=== PATIENT | male | born 1955 | race Caucasian/White ===

== ENCOUNTER → 2017-08-03 09:41 | Outpatient (CLI) | payer MEDICARE, SELFPAY ==
--- NOTE | 2017-08-03 09:48 | XR_ITS ---
XR thoracic spine 3V COMPARISON: PA and lateral chest 01/11/2017 HISTORY: Back pain TECHNIQUE: AP and lateral views and swimmer's view cervicothoracic junction FINDINGS: There is normal curvature and alignment. Moderate degenerative changes are again seen in the lower thoracic spine with anterior ossific spurring. The swimmer's view is somewhat less than satisfactory due to underpenetration but no obvious abnormality is identified at the cervicothoracic junction. There is no acute compression fracture seen. There is no paraspinal mass. IMPRESSION: Stable degenerative changes lower thoracic spine as noted
--- NOTE | 2017-08-03 09:48 | XR_ITS ---
XR ribs RT min 3V w CXR1V COMPARISON: Right ribs 02/28/2017 HISTORY: Right rib pain TECHNIQUE: PA chest and oblique views right ribs FINDINGS: Again noted is a sternal wire sutures and surgical clips from previous bypass procedure. All the right ribs appear intact. The previously noted fracture of the right 10th rib has healed with little or no deformity. Both lung linn are clear of infiltrate. IMPRESSION: Negative for acute right rib fracture
== END ==
PROVIDERS: PCP Family Medicine; Visit Provider Family Medicine
DX: R07.81 Pleurodynia (principal); M54.6 Pain in thoracic spine
CPT/HCPCS: 71101; 72072

== ENCOUNTER → 2017-08-22 14:11 | Outpatient (CLI) | payer MEDICARE, SELFPAY ==
[2017-08-22 14:45] LABS: Blood Urea Nitrogen 16 mg/dL (7-18); Creatinine,Serum 1.17 mg/dL (0.70-1.30); Estimated Glomerular Filt Rate 63 ml/min (>60); GFR (African American) 76 ML/MIN (>60)
== END ==
PROVIDERS: Visit Provider Family Medicine
DX: R10.9 Unspecified abdominal pain (principal)
CPT/HCPCS: 36415; 82565; 84520

== ENCOUNTER → 2017-08-24 09:25 | Outpatient (CLI) | payer MEDICARE, SELFPAY ==
--- NOTE | 2017-08-24 09:32 | CT_ITS ---
CT abdomen pelvis w con CLINICAL INDICATION: Right-sided abdominal pain radiating to the back ITS.REASON: ABDOMINAL PAIN ORDERING PHYSICIAN: Estuardo Pacheco MD PATIENT AGE: 61 years COMPARISON: None TECHNIQUE: Axial images obtained with sagittal and coronal reformats. All CT scans at the facility use one or more dose reduction, viz: automated exposure control; ma/kV adjustment per patient size (including targeted exams where dose is matched to indication; i.e. head); or iterative reconstruction technique. PROCEDURE: Oral Contrast: Redicat IV Contrast: 75 mL's of Isovue-370 . FINDINGS: The lung bases are clear. No focal liver lesion. There is a 17 mm rounded fat density within the cardia of the stomach consistent with a lipoma. No radio opaque gallstone. The spleen, adrenal glands, and pancreas and kidneys have an unremarkable appearance. No obstructing renal or ureteral calculus. No evidence of abdominal aortic aneurysm or retroperitoneal hemorrhage or mass No abdominal mass or abnormal fluid collection. No adenopathy. No intestinal obstruction or free air. No evidence of appendicitis or diverticulitis. No pelvic mass, focal inflammatory change, or abnormal fluid collection. No acute bony anomalies. IMPRESSION: 1. No acute abdominal or pelvic findings. 2. 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
--- NOTE | 2017-08-24 10:27 | HMH.ITSHM ---
POTASSIUM FUROSEMIDE ASPIRIN ALLOPURINOL BASIC FISH OIL LEVOTHYROXIN LISINOPRIL NAPROXEN PANTOPRAZOLE TRAMADOL
== END ==
PROVIDERS: Family Provider Family Medicine; PCP Family Medicine; Visit Provider Family Medicine
DX: R10.84 Generalized abdominal pain (principal)
CPT/HCPCS: 74177; Q9967

== ENCOUNTER → 2018-02-08 14:08 | Outpatient (CLI) | payer MEDICARE, SELFPAY ==
--- NOTE | 2018-02-08 14:14 | CT_ITS ---
CT lung screening EXAM: CT LUNG LOW DOSE WO CONTRAST HISTORY: Asymptomatic with 38 pack-year smoking history ITS.REASON: FORMER SMOKER ORDERING PHYSICIAN: Estuardo Pacheco MD PATIENT AGE: 62 years COMPARISON: None TECHNIQUE: The exam was performed on a GE Light Speed [address] scanner using 2.90 mGy CTDI. A low dose helical CT CHEST was performed on a multi-detector scanner. All CT scans at the facility use one or more dose reduction, viz: automated exposure control, ma/kV adjustment per patient size (including targeted exams where dose is matched to indication, i.e. head), or iterative reconstruction technique. The LDCT was performed in a facility that meets the criteria for the screening program. Data regarding this exam was submitted to ACR which is an approved registry. The order for this exam indicates that it came as a result of a lung cancer screening counseling shard decision-making visit that included all the elements required of such a visit including smoking cessation. The radiologist interpreting this exam meets the CMS criteria for the LDCT lung cancer screening program. The exam is reported using the Lung-RADS classification scale and reported to the ACR registry. NOTE: This study was performed for the specific purposes of lung cancer screening and is not an alternative to diagnostic chest CT. RADIATION DOSE: CTDI vol(CT dose Index-volume) = 2.90mG DLP (Dose Length Product) = 107.07 mGcm FINDINGS: There has been a prior CABG. There are coronary artery calcifications with small mediastinal lymph nodes. Hyperinflation with attenuation of the peripheral pulmonary vessels and bronchial thickening with mild prominence of interstitial markings which may be related to smoking-related lung disease. 3 mm noncalcified nodule within the lingula. 3 mm noncalcified nodule right upper lobe anteriorly. 4 mm noncalcified nodule right upper lobe laterally coronal image #50. No central obstructing lesions. No suspicious pulmonary nodules. IMPRESSION: 1. Lung RADS Category: 2, benign 2. Other findings: COPD, coronary artery disease RECOMMENDATIONS: 12 month LDCT follow-up
== END ==
PROVIDERS: Family Provider Family Medicine; PCP Family Medicine; Visit Provider Family Medicine
DX: Z12.2 Encounter for screening for malignant neoplasm of respiratory organs (principal); Z87.891 Personal history of nicotine dependence

== ENCOUNTER → 2018-10-04 15:08 | Outpatient (CLI) | payer MEDICARE, SELFPAY ==
--- NOTE | 2018-10-04 15:30 | XR_ITS ---
XR chest 2V HISTORY: Chest pain, shortness of breath ORDERING PHYSICIAN: Estuardo Pacheco MD PATIENT AGE: 62 years COMPARISON: 01/11/2017 FINDINGS: Prior CABG.. The lungs are clear without infiltrates, suspicious nodules, or pleural effusions. No acute bony abnormalities. IMPRESSION: Prior CABG. No change with no acute finding
[2018-10-04 15:45] LABS: Alanine Aminotransferase 34 U/L (12-78); Albumin Level 4.1 gm/dL (3.4-5.0); Albumin/Globulin Ratio 1.2 (1.1-1.8); Alkaline Phosphatase 53 U/L (46-116); Anion Gap 11.2 mEq/L (5-15); Aspartate Amino Transferase 15 U/L (15-37); Bilirubin,Total 0.5 mg/dL (0.2-1.0); Blood Urea Nitrogen 19 mg/dL (7-18); CKMB Relative Index 2.3 U/L (0-4.0); Calcium 8.8 mg/dL (8.5-10.1); Carbon Dioxide 29 mmol/L (21.0-32.0); Chloride 102 mmol/L (98-107); Creatine Kinase 79 U/L (39-308); Creatine Kinase MB 1.8 ng/ml (0.0-3.6); Creatinine,Serum 1.18 mg/dL (0.70-1.30); Estimated Glomerular Filt Rate 62 ml/min (>60); GFR (African American) 75 ML/MIN (>60); Globulin 3.4 gm/dl (1.3-3.2); Glucose 92 mg/dL (74-106); Potassium 4.2 mmoL/L (3.5-5.1); Sodium 138 mmol/L (136-145); Total Protein,Serum 7.5 gm/dL (6.4-8.2)
== END ==
PROVIDERS: Visit Provider Family Medicine
DX: I25.10 Atherosclerotic heart disease of native coronary artery without angina pectoris (principal); R07.2 Precordial pain
CPT/HCPCS: 36415; 71046; 80053; 82550; 82553; 84484; 93005

== ENCOUNTER → 2019-02-10 13:52 | Outpatient (CLI) | payer MEDICARE, SELFPAY ==
--- NOTE | 2019-02-10 13:57 | CT_ITS ---
PROCEDURE: CT LUNG SCREENING CLINICAL INDICATION: HX TOBACCO USE Thirty-four pack-year smoking history, asymptomatic for lung cancer COMPARISON: [facility] CT CHEST W/O CONTRAST from 02/12/2017 TECHNIQUE: The exam was performed on a GE Light Speed [address] scanner using 2.90 mGy CTDI. A low dose helical CT CHEST was performed on a multi-detector scanner. All CT scans at the facility use one or more dose reduction, viz: automated exposure control, ma/kV adjustment per patient size (including targeted exams where dose is matched to indication, i.e. head), or iterative reconstruction technique. The LDCT was performed in a facility that meets the criteria for the screening program. Data regarding this exam was submitted to ACR which is an approved registry. The order for this exam indicates that it came as a result of a lung cancer screening counseling shard decision-making visit that included all the elements required of such a visit including smoking cessation. The radiologist interpreting this exam meets the CMS criteria for the LDCT lung cancer screening program. The exam is reported using the Lung-RADS classification scale and reported to the ACR registry. NOTE: This study was performed for the specific purposes of lung cancer screening and is not an alternative to diagnostic chest CT. RADIATION DOSE: CTDI vol(CT dose Index-volume) = 2.90mG DLP (Dose Length Product) = 107.07 mGcm FINDINGS: No suspicious pulmonary nodules. COPD. Degenerative change thoracic spine. Coronary artery calcification. Prior CABG OTHER FINDINGS: No other pertinent findings evident. IMPRESSION: Lung rads category 1, negative Coronary artery calcifications. Recommend screening LD CT in 12 months Dictated by: Larry Sam MD 02/12/2019 05:47 Electronically signed by Larry Sam MD in [place] 02/23/2019 11:03
== END ==
PROVIDERS: PCP Family Medicine; Visit Provider Family Medicine
DX: Z87.891 Personal history of nicotine dependence (principal); Z12.2 Encounter for screening for malignant neoplasm of respiratory organs

== ENCOUNTER → 2019-04-02 10:33 | Outpatient (CLI) | payer MEDICARE, SELFPAY ==
--- NOTE | 2019-04-02 10:46 | XR_ITS ---
PROCEDURE: XR FOOT WT BEARING LT 3V CLINICAL INDICATION: cellulitis of toe Pain redness and swelling the COMPARISON: No exams were available for comparison FINDINGS: No fracture or dislocation. No lytic or blastic change. There is normal mineralization. There are mild osteoarthritic changes of the 1st metatarsophalangeal joint. No bony destructive process is evident. Mild osteoarthritis involves the navicular cuneiform and cuneiform metatarsal junction Other findings:None. IMPRESSION: Mild osteoarthritic change otherwise negative Dictated by: Larry Sam MD 04/02/2019 12:28 Electronically signed by Larry Sam MD in [place] 04/02/2019 12:28
[2019-04-02 11:40] LABS: Basophils # 0.1 K/mm3 (0-0.2); Basophils % 0.9 % (0.1-2.0); Eosinophils # 0.4 K/mm3 (0.0-0.4); Hematocrit 44.7 % (42.0-52.0); Hemoglobin 14.4 g/dL (14.1-18.0); Lymphocytes # 1.6 K/mm3 (0.7-4.5); Lymphocytes % 22.3 % (10-50); Mean Corpuscular HGB Conc 32.3 g/dL (31.8-35.4); Mean Corpuscular Hemoglobin 33.1 pg (27.0-31.2); Mean Corpuscular Volume 102.4 fl (80-94); Mean Platelet Volume 8.4 fl (7.4-10.4); Monocytes # 0.5 K/mm3 (0.1-1.0); Monocytes % 7.1 % (1.7-9.3); Neutrophils # 4.7 K/mm3 (1.8-7.8); Neutrophils % 64.8 % (37.0-80.0); Platelet Count 213 K/mm3 (142-424); Red Blood Count 4.36 M/mm3 (4.60-6.20); Red Cell Distribution Width 13.2 % (11.5-17.5); White Blood Count 7.3 K/mm3 (4.8-10.8)
[2019-04-02 12:00] LABS: Alanine Aminotransferase 19 U/L (12-78); Albumin Level 4.1 gm/dL (3.4-5.0); Albumin/Globulin Ratio 1.5 (1.1-1.8); Alkaline Phosphatase 60 U/L (46-116); Anion Gap 10.3 mEq/L (5-15); Aspartate Amino Transferase 9 U/L (15-37); Bilirubin,Total 0.8 mg/dL (0.2-1.0); Blood Urea Nitrogen 14 mg/dL (7-18); C-Reactive Protein 4.3 mg/dL (0.0-0.9); Calcium 9.1 mg/dL (8.5-10.1); Carbon Dioxide 32 mmol/L (21.0-32.0); Chloride 102 mmol/L (98-107); Creatinine,Serum 1.12 mg/dL (0.70-1.30); Estimated Glomerular Filt Rate 66 ml/min (>60); GFR (African American) 80 ML/MIN (>60); Globulin 2.8 gm/dl (1.3-3.2); Glucose 98 mg/dL (74-106); Potassium 5.3 mmoL/L (3.5-5.1); Sodium 139 mmol/L (136-145); Total Protein,Serum 6.9 gm/dL (6.4-8.2)
[2019-04-02 14:06] LABS: Erythrocyte Sedimentation Rate 38 mm/hr (0-20)
== END ==
PROVIDERS: Nurse Practitioner; PCP Family Medicine; Visit Provider Podiatrist
DX: L02.91 Cutaneous abscess, unspecified (principal); L03.90 Cellulitis, unspecified; L02.619 Cutaneous abscess of unspecified foot; L03.119 Cellulitis of unspecified part of limb
CPT/HCPCS: 36415; 73630; 80053; 85025; 85651; 86140; 87070; 87077; 87186; 87205

== ENCOUNTER → 2019-04-02 10:36 | Outpatient (CLI) | payer MEDICARE, SELFPAY | PROVIDERS: Visit Provider Nurse Practitioner | DX: L03.90 Cellulitis, unspecified (principal); L02.91 Cutaneous abscess, unspecified | CPT/HCPCS: 36415; 73630; 80053; 85025; 85651; 86140; 87070; 87077; 87186; 87205 ==

== ENCOUNTER → 2019-04-29 16:09 | Outpatient (CLI) | payer MEDICARE, SELFPAY ==
[2019-04-29 16:26] LABS: Basophils # 0.1 K/mm3 (0-0.2); Basophils % 0.8 % (0.1-2.0); Eosinophils # 0.3 K/mm3 (0.0-0.4); Eosinophils % 5.4 % (0.1-12.0); Hematocrit 43.1 % (42.0-52.0); Hemoglobin 14.1 g/dL (14.1-18.0); Lymphocytes # 2.3 K/mm3 (0.7-4.5); Lymphocytes % 37.4 % (10-50); Mean Corpuscular HGB Conc 32.8 g/dL (31.8-35.4); Mean Corpuscular Hemoglobin 32.5 pg (27.0-31.2); Mean Corpuscular Volume 98.9 fl (80-94); Mean Platelet Volume 8.3 fl (7.4-10.4); Monocytes # 0.5 K/mm3 (0.1-1.0); Monocytes % 7.5 % (1.7-9.3); Platelet Count 205 K/mm3 (142-424); Red Blood Count 4.35 M/mm3 (4.60-6.20); Red Cell Distribution Width 13.4 % (11.5-17.5); White Blood Count 6.1 K/mm3 (4.8-10.8)
[2019-04-29 17:13] LABS: Erythrocyte Sedimentation Rate 20 mm/hr (0-20)
[2019-04-29 17:25] LABS: Alanine Aminotransferase 29 U/L (12-78); Albumin/Globulin Ratio 1.3 (1.1-1.8); Alkaline Phosphatase 53 U/L (46-116); Anion Gap 12.3 mEq/L (5-15); Aspartate Amino Transferase 18 U/L (15-37); Bilirubin,Total 0.5 mg/dL (0.2-1.0); Blood Urea Nitrogen 20 mg/dL (7-18); Calcium 8.8 mg/dL (8.5-10.1); Carbon Dioxide 29 mmol/L (21.0-32.0); Chloride 103 mmol/L (98-107); Creatinine,Serum 1.17 mg/dL (0.70-1.30); Estimated Glomerular Filt Rate 63 ml/min (>60); GFR (African American) 76 ML/MIN (>60); Globulin 3.1 gm/dl (1.3-3.2); Glucose 90 mg/dL (74-106); Potassium 4.3 mmoL/L (3.5-5.1); Sodium 140 mmol/L (136-145); Total Protein,Serum 7.1 gm/dL (6.4-8.2)
[2019-04-29 18:04] LABS: C-Reactive Protein < 0.2 mg/dL (0.0-0.9)
== END ==
PROVIDERS: Visit Provider Nurse Practitioner
DX: E66.9 Obesity, unspecified (principal); Z51.89 Encounter for other specified aftercare; S90.425D Blister (nonthermal), left lesser toe(s), subsequent encounter
CPT/HCPCS: 36415; 80053; 85025; 85651; 86140

== ENCOUNTER → 2019-10-24 11:15 | Outpatient (CLI) | payer MEDICARE, SELFPAY ==
--- NOTE | 2019-10-24 11:43 | ECG_ITS ---
APPROVED REPORT Exam: Resting ECG HR:47 bpm ECG Measurements Heart Rate 47 AXES ID 226 P 38 QRSd 106 QRS 41 QT 424 T 2 QTc 375 <Conclusion> Marked sinus bradycardia with 1st degree AV block Abnormal ECG Electronically signed by : Micheal Ayala, 10/26/2019 07:11:48
[2019-10-24 11:53] LABS: Basophils % 0.3 % (0.1-2.0); Eosinophils # 0.2 K/mm3 (0.0-0.4); Eosinophils % 2.6 % (0.1-12.0); Hematocrit 43.7 % (42.0-52.0); Hemoglobin 14.9 g/dL (14.1-18.0); Lymphocytes # 2.5 K/mm3 (0.7-4.5); Lymphocytes % 31.5 % (10-50); Mean Corpuscular HGB Conc 34.1 g/dL (31.8-35.4); Mean Corpuscular Hemoglobin 33.5 pg (27.0-31.2); Mean Platelet Volume 7.7 fl (7.4-10.4); Monocytes # 0.5 K/mm3 (0.1-1.0); Monocytes % 6.5 % (1.7-9.3); Neutrophils # 4.6 K/mm3 (1.8-7.8); Platelet Count 208 K/mm3 (142-424); Red Blood Count 4.46 M/mm3 (4.60-6.20); Red Cell Distribution Width 14.1 % (11.5-17.5); White Blood Count 7.8 K/mm3 (4.8-10.8)
[2019-10-24 13:37] LABS: Chloride 100 mmol/L (98-107)
[2019-10-24 13:38] LABS: Potassium 4.4 mmoL/L (3.5-5.1); Sodium 137 mmol/L (136-145)
[2019-10-24 13:40] LABS: Alanine Aminotransferase 20 U/L (12-78); Alkaline Phosphatase 61 U/L (38-126); Anion Gap 11.4 mEq/L (5-15); Aspartate Amino Transferase 20 U/L (17-59); Bilirubin,Total 0.8 mg/dl (0.2-1.3); Blood Urea Nitrogen 20 mg/dl (9-20); Carbon Dioxide 30 mmol/L (22.0-30.0); Estimated Glomerular Filt Rate 67 ml/min (>60); GFR (African American) 81 ML/MIN (>60)
[2019-10-24 13:41] LABS: Albumin Level 4.1 g/dl (3.5-5.0); Albumin/Globulin Ratio 1.6 (1.1-1.8); Calcium 9.3 mg/dl (8.4-10.2); Globulin 2.6 g/dL (1.3-3.2); Glucose 91 mg/dl (74-100); Total Protein,Serum 6.7 g/dl (6.3-8.2)
[2019-10-24 13:58] LABS: Free T4 (Free Thyroxine) 1.32 ng/dl (0.78-2.19)
== END ==
PROVIDERS: Visit Provider Family Medicine
DX: I25.10 Atherosclerotic heart disease of native coronary artery without angina pectoris (principal); E03.9 Hypothyroidism, unspecified; R53.83 Other fatigue
CPT/HCPCS: 36415; 80053; 84439; 85025; 93005

== ENCOUNTER → 2019-10-28 10:25 | Outpatient (CLI) | payer MEDICARE, SELFPAY | PROVIDERS: PCP Family Medicine; Visit Provider Family Medicine | DX: R00.1 Bradycardia, unspecified (principal) | CPT/HCPCS: 93225; 93226 ==

== ENCOUNTER → 2019-11-10 13:57 | Outpatient (CLI) | payer MEDICARE, SELFPAY | PROVIDERS: PCP Family Medicine; Visit Provider Nurse Practitioner Family | DX: R00.1 Bradycardia, unspecified (principal); R00.2 Palpitations; R42 Dizziness and giddiness; R94.31 Abnormal electrocardiogram [ECG] [EKG] | CPT/HCPCS: 93270 ==

== ENCOUNTER → 2019-11-21 06:09 | Outpatient (CLI) | payer MEDICARE, SELFPAY ==
--- NOTE | 2019-11-21 06:10 | NM_ITS ---
APPROVED REPORT Exam: Nuclear Stress Test Indication: SOB, Palpitations, High cholesterol, CAD, CABG, Family history Patient Location: Outpatient Stress Tech: Sepideh Alycia MS Tech:Jessica Rene, ARRT, RT (R)(N) Ht: 6 ft 0 in Wt: 250 lbs HR: 48 bpm BP: 185/55 mmHg BSA: 2.34 m2 History: SOB, Palpitations, High cholesterol, CAD, CABG, Family history Procedure: Patient received a 0.4 mg of intravenous Lexiscan, resting heart rate 48 bpm, resting blood pressure 185/55 mmHg, with Lexiscan maximum heart rate achived was 69 bpm which is 85 % of the maximum predicted heart rate and blood pressure was 134/64 mmHg. With Lexiscan, patient denied any complaint of chest pain. Cardiac Stress and Resting SPECT Images: Cardiac Stress and Resting SPECT images were obtained using technetium 99m Myoview 30.8 mCi stress and 10.43 mCi at rest. EF= 47%. There is global hypokinesia. Decrease activity noted on the stress images in the anterior septal region toward the apex fills in on the delayed images. Fixed defect is present within the anterior lateral aspect of the apex. There is decreased activity in the inferior wall which normalizes on the rest images consistent with ischemia. Conclusion: Low ejection fraction of 47% with global hypokinesia. Ischemic changes within the anterior wall and inferior wall with suspected area of infarction involving the apex laterally Electronically signed by : Larry Sam MD 11/24/2019 17:34:06
--- NOTE | 2019-11-21 06:10 | CA_ITS ---
APPROVED REPORT Data Entry Clerk: GRZEGORZ Laterality: Bilateral Study Quality: Good Indications: bilateral carotid bruits Doppler Spectral Velocity Analysis dICA (R) 62.40/21.90 cm/s dICA (L) 59.50/17.70 cm/s Josh (R) 73.40/24.00 cm/s Josh (L) 87.00/26.90 cm/s pICA (R) 58.90/17.10 cm/s pICA (L) 60.00/20.50 cm/s dCCA (R) 62.30/11.70 cm/s dCCA (L) 102.10/27.80 cm/s pCCA (R) 77.90/17.20 cm/s pCCA (L) 90.50/22.40 cm/s Vert (R) 39.70/13.00 cm/s Vert (L) 41.00/11.70 cm/s ICA/CCA 1.20 ICA/CCA 0.90 Findings Duplex evaluation demonstrates stenosis of the right proximal internal carotid artery <20% with PSV <140 cm/sec, EDV <100 cm/sec, and IC/CC Ratio <4.0.Duplex evaluation demonstrates stenosis of the left proximal internal carotid artery <20% with PSV <140 cm/sec, EDV <100 cm/sec, and IC/CC Ratio <4.0.Antegrade flow seen bilateral vertebral arteries. No significant change from study of 02/28/07 Conclusion No increased velocities to suggest hemodynamically significant stenosis in either internal carotid artery. Electronically signed by : Larry Sam MD 11/24/2019 16:54:06
--- NOTE | 2019-11-21 06:10 | CA_ITS ---
APPROVED REPORT Exam: Pharmacologic Technologist: Heather Tong, Ht: 6 ft 0 in Wt: 250 lbs BSA: 2.34 m2 HR: 48 bpm BP: 185/55 mmHg Medical History Medical History: HTN Medications: Lisinopril,,,,, Levothyroxine,,,,, Asa,,,,, Allopurinol,,,,, Pantoprazole,,,,, Lasix,,,,, Naproxen,,,,, Tramadol,,,,, KCL,,,,, Ezetimbe,,,,, Nitro,,,,, Allergies: No known drug allergies Cardiac Risk Factors: HTN, FHX of CAD Stress Test Details Test: LEXISCAN HR Resting HR: 49 bpm Max Heart Rate (APMHR): 154 bpm Max HR Achieved: 87 bpm Target HR (85% APMHR): 130 bpm % of APMHR: 56 Recovery HR: 69 bpm BP Resting BP: 185.0/55.0 mmHg Max BP: 185.0/55.0 mmHg Recovery BP: 134.0/64.0 mmHg ECG Resting ECG: SINUS BRADYCARDIA Clinical Exercise duration: 04:00 min Highest Stage Achieved: Exercise capacity: 1.0 METs Stress ECG Conclusion LEXISCAN PORTION COMPLETED. PT C/O SHORTNESS OF BREATH DURING INFUSION. NO CHEST PAIN BUT HAD SOA DURING INFUSION. RESOLVED IN RECOVERY. OCCASIONAL PVC. LESS ROXY 1.5MM ST DEPRESSION. IMAGES TO FOLLOW Electronically signed by : Faisal Garza, 12/01/2019 19:57:02
--- NOTE | 2019-11-21 08:33 | HMH.ITSHM ---
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 []TRAMADOL POTASSIUM PANTOPRAZOLE OMEGA 3 NITRO NAPROXEN LISINOPRIL LEVOTHYROXINE FUROSEMIDE EZETIMIBE COENZYME ASA ALLOPURINOL
== END ==
PROVIDERS: PCP Family Medicine; Visit Provider Nurse Practitioner Family
DX: E66.9 Obesity, unspecified (principal); I25.708 Atherosclerosis of coronary artery bypass graft(s), unspecified, with other forms of angina pectoris; K21.9 Gastro-esophageal reflux disease without esophagitis; R00.1 Bradycardia, unspecified; R00.2 Palpitations; R06.09 Other forms of dyspnea; R09.89 Other specified symptoms and signs involving the circulatory and respiratory systems; R42 Dizziness and giddiness; R94.31 Abnormal electrocardiogram [ECG] [EKG]; Z87.891 Personal history of nicotine dependence; Z95.1 Presence of aortocoronary bypass graft
CPT/HCPCS: 78452; 93017; 93306; 93880; A9502; J2785

== ENCOUNTER 2019-12-12 08:19 | Day surgery (SDC) | payer MEDICARE, SELFPAY ==
[2019-12-12] VITALS (11 sets, daily range): BP systolic 120–159; BP diastolic 59–78; PULSE 47–62; RESP 18–20; TEMP 36.7; O2SAT 96–100; BMI 36.1
--- NOTE | 2019-12-12 | IR_ITS ---
APPROVED REPORT Patient Location: Outpatient PROCEDURES Left heart catheterization Left ventriculogram Selective coronary angiogram Left internal mammary angiography Selective engage in the saphenous vein graft to the right coronary Selective engage in the saphenous vein graft to the circumflex artery Selective engage in the saphenous vein graft to the diagonal artery Drug-eluting stent deployment to the saphenous vein graft supplying the circumflex artery INDICATION Coronary disease, History of coronary bypass surgery, Angina pectoris class III, Abnormal Myoview Informed consent was obtained prior to the procedure. COMPLICATIONS NONE Estimated Blood Loss: LESS THAN 10 ML TECHNIQUE One percent lidocaine used to anesthetize the right groin. The right femoral artery was accessed via the Seldinger technique and a 5 Syriac sheath was placed in the right femoral artery. A JL 4, JR4 catheter were used to perform left heart catheterization, left ventriculogram selective coronary angiography as well as selective engagement of the 2 vein grafts and the left internal mammary artery. At the end of the diagnostic procedure therapeutic heparin was administered giving an ACT out of range. A JR4 guide catheter was used to cannulate the saphenous vein graft to the circumflex artery and a BMW wire was used to traverse the stenosis in the saphenous vein graft. A 3 mm x 12 mm resolute osmin stent was deployed at 18 kym reducing the severe stenosis to 0%. AMBER-3 flow was present before and after the procedure. At the end of the procedure the apparatus was removed the groin was reprepped gloves were changed sheath was removed good hemostasis was achieved using Perclose device patient was transferred to the postop holding her in stable condition ANGIOGRAPHIC RESULTS The left main artery Has a distal concentric 70 to 80% stenosis The left anterior descending artery Appears proximally normal. There is competitive flow from the left internal mammary artery The circumflex artery Ramus intermedius originates off the left main artery is 2 mm in diameter and patent. The circumflex artery is ostially occluded The right coronary artery Is occluded at mid segment The RADER ventriculogram reveals Mildly dilated ejection fraction 45% The left ventricular end-diastolic pressure 10 mmHg The left internal mammary artery is widely patent to the mid LAD The saphenous vein graft to the large circumflex system has a mid segment venous valve which appears to have a venous valve causing greater than 70% obstruction. Anatomically the valve appears to be reversed Saphenous vein graft to the right coronary is ostially occluded The saphenous vein graft to a small diagonal artery is patent with slow flow. The diagonal artery is a small distribution of myocardium IMPRESSION Coronary disease as described above High-grade stenosis in the saphenous vein graft supplying a large circumflex system with successful stenting of the graft reducing the stenosis to 0% Slow flow down a small saphenous vein graft supplying an atretic diagonal artery Occluded saphenous vein graft to the right coronary Reduced ejection fraction with mildly dilated ventricle Normal left ventricular end-diastolic pressure PLAN 1. Dual antiplatelet therapy 2. Medical management 3. LDL less than 55 4. Cardiac rehabilitation 5. Avoidance of tobacco products Electronically signed by : Jacob Whitfield, 12/12/2019 12:26:55
[2019-12-12 08:51] LABS: Basophils % 0.6 % (0.1-2.0); Eosinophils # 0.3 K/mm3 (0.0-0.4); Eosinophils % 4.4 % (0.1-12.0); Hematocrit 42.7 % (42.0-52.0); Hemoglobin 14.9 g/dL (14.1-18.0); Lymphocytes # 2.2 K/mm3 (0.7-4.5); Lymphocytes % 35.3 % (10-50); Mean Corpuscular HGB Conc 34.9 g/dL (31.8-35.4); Mean Corpuscular Hemoglobin 34.2 pg (27.0-31.2); Mean Corpuscular Volume 97.8 fl (80-94); Mean Platelet Volume 8.2 fl (7.4-10.4); Monocytes # 0.4 K/mm3 (0.1-1.0); Monocytes % 6.9 % (1.7-9.3); Neutrophils # 3.3 K/mm3 (1.8-7.8); Neutrophils % 52.8 % (37.0-80.0); Platelet Count 182 K/mm3 (142-424); Red Blood Count 4.36 M/mm3 (4.60-6.20); White Blood Count 6.3 K/mm3 (4.8-10.8)
[2019-12-12 08:58] LABS: Chloride 104 mmol/L (98-107); Potassium 4.3 mmoL/L (3.5-5.1); Sodium 139 mmol/L (136-145)
[2019-12-12 09:01] LABS: Anion Gap 12.3 mEq/L (5-15); Blood Urea Nitrogen 19 mg/dl (9-20); Carbon Dioxide 27 mmol/L (22.0-30.0); Creatinine Clearance Estimated 124 mL/min (50-200); Estimated Glomerular Filt Rate 75 ml/min (>60); GFR (African American) 90 ML/MIN (>60)
[2019-12-12 09:07] LABS: Calcium 8.8 mg/dl (8.4-10.2)
[2019-12-12 09:43] LABS: Glucose 110 mg/dl (74-100)
--- NOTE | 2019-12-12 14:14 | HMH.PHACLD ---
Durga Moss has received discharge medication counseling on the following medications: PATIENT ALREADY TAKING ASPIRIN 81 MG DAILY AND LISINOPRIL 5 MG DAILY. PATIENT INDICATED HE HAS TRIED BRILINTA IN THE PAST AND HAD TO BE TAKEN OFF DUE TO SEVERE BRUISING AND LIGHT HEADEDNESS. PATIENT BEING PRESCRIBED PLAVIX 75 MG. PATIENT NOT CURRENTLY ABLE TO TOLERATE A STATIN BUT IS ON ZETIA 10 MG HS. PATIENT'S HR RUNNING LOW (40'S - 50'S) SO MD IS NOT WANTING TO START A BETABLOCKER AT THIS TIME.
[2019-12-12 15:34] LABS: CATHL Activated Clotting Time > 400 SEC (74-125)
== END 2019-12-12 16:13 | disposition home or self-care (01) ==
LOC: CATHLAB 08:22
PROVIDERS: PCP Family Medicine; Visit Provider Internal Medicine
DX: I25.118 Atherosclerotic heart disease of native coronary artery with other forms of angina pectoris (principal); E11.9 Type 2 diabetes mellitus without complications; I10 Essential (primary) hypertension; I25.2 Old myocardial infarction; Z95.5 Presence of coronary angioplasty implant and graft; Z95.1 Presence of aortocoronary bypass graft; I25.718 Atherosclerosis of autologous vein coronary artery bypass graft(s) with other forms of angina pectoris
CPT/HCPCS: 80048; 85025; 85347; 92937; 93459; 99152; 99153; C1725; C1760; C1769; C1876; C1894; C9604; J1644; Q9967

== ENCOUNTER → 2019-12-22 13:04 | Outpatient (CLI) | payer MEDICARE, SELFPAY ==
[2019-12-22 15:07] LABS: Triiodothryronine (T3) Uptake 38 % (23.5-40.5)
[2019-12-22 15:08] LABS: Free Thyroxine Index 2.7 ug/dL (5.93-13.13); T4 (Thyroxine) 7.1 ug/dl (5.53-11.0)
== END ==
PROVIDERS: PCP Family Medicine; Visit Provider Physician Assistant
DX: R00.0 Tachycardia, unspecified; R00.1 Bradycardia, unspecified; R00.2 Palpitations; E66.9 Obesity, unspecified; I25.10 Atherosclerotic heart disease of native coronary artery without angina pectoris; K21.9 Gastro-esophageal reflux disease without esophagitis; R06.09 Other forms of dyspnea; R94.31 Abnormal electrocardiogram [ECG] [EKG]; Z95.1 Presence of aortocoronary bypass graft
CPT/HCPCS: 36415; 84436; 84443; 84479; 93225

== ENCOUNTER 2020-01-14 08:52 | Day surgery (SDC) | payer MEDICARE, SELFPAY ==
[2020-01-14] VITALS (7 sets, daily range): BP systolic 140–156; BP diastolic 70–91; PULSE 45–76; RESP 16–20; TEMP 36.6; O2SAT 94–98; BMI 25.4; BMI 36.8
--- NOTE | 2020-01-14 | IR_ITS ---
APPROVED REPORT Patient Location: Outpatient Metal Slitter: GILBERTO Coombs RT (R) PROCEDURES 1. Pocket formation for Permanent Pacemaker Placement. 2. Placement of an atrial sensing and pacing coil into the right atrial appendage. 3. Placement of a ventricular sensing and pacing coil in the right ventricular apex. 4. Permanent Pacemaker Placement. INDICATION Symptomatic Bradycardia, Sick Sinus Syndrome Informed consent was obtained prior to the procedure. COMPLICATIONS NONE Estimated Blood Loss: Less than 10 mls TECHNIQUE 1% Lidocaine with epinephrine used to anesthetized the right anterior aspect of the chest. Scalpel was used to make the initial cutaneous incision while electrocautery was used to dissect down tinto the fascia. The fascia was lifted off the pectoralis muscle and digitally manipulated creating a pocket for the pacemaker. The patient was then placed in Trendelenburg position and the subclavian vein was accessed twice via the Selinger technique, there are two wires in the vein. A 6 Gabonese sheath was placed under fluoroscopic guidance into the subclavian vein over one of the wires while keeping the other wire in place within the subclavian vein. The dilator was removed from the sheath. Using fluoroscopic guidance, the ventricular lead was placed into the right ventricular apex, screwed and secured into place. Electronic interrogation proved acceptable thresholds and voltage within the lead. Using 3-0 silk, the ventricular lead was then secured into place. Lead was secured to the facia using the 3-0 silk. Following this, the sheath was pealed away. An additional 6 Gabonese fresh sheath and dilator was placed over the existing wire. Using fluoroscopic guidance, the atrial lead was the placed into the right atrial appendage and screwed and secured in place. Electrical interrogation demonstrated acceptable thresholds and voltage number. The atrial lead was then secured into place using 3-0 silk. 1 gram of Ancef was used to flush the pocket. Following the pacemaker generator being secured to the fascia and in place, Monocryl was used to close the subcutaneous layers while brandi were used to close the cutaneous layer. A pressure dressing was placed and the patient was transferred to the postop holding area in stable condition for postoperative care. IMPRESSION Generator Model: BumpTop L311 Generator Serial No: [id number] RA Lead Model: Therapeutic Proteins 7841 RA Lead Serial No: [id number] RV Lead Model: CALVIN 7742 RA Lead Serial No: [id number] Device Measurements: RA Lead: Intrinsic: 3.0mV Threshold: 1.5V@0.4ms Impedence: 714 ohms RV Lead: Intrinsic: 10mV Threshold: 0.8V@0.4ms Impedence: 850 ohms Parameters: Mode: DDDR Base/Max: 60/130ppm Conclusion 1. Successful Pocket formation for Permanent Pacemaker Placement. 2. Successful Placement of an atrial sensing and pacing coil into the right atrial appendage. 3. Successful Placement of a ventricular sensing and pacing coil in the right ventricular apex. 4. Successful Permanent Pacemaker Placement. PLAN 1. Post op wound care Electronically signed by : Jacob Whitfield, 01/15/2020 11:11:40
[2020-01-14 09:25] LABS: Chloride 106 mmol/L (98-107); Potassium 4.5 mmoL/L (3.5-5.1); Sodium 140 mmol/L (136-145)
[2020-01-14 09:28] LABS: Anion Gap 12.5 mEq/L (5-15); Basophils # 0.1 K/mm3 (0-0.2); Basophils % 0.9 % (0.1-2.0); Blood Urea Nitrogen 23 mg/dl (9-20); Calcium 9.5 mg/dl (8.4-10.2); Carbon Dioxide 26 mmol/L (22.0-30.0); Creatinine Clearance Estimated 127 mL/min (50-200); Eosinophils # 0.3 K/mm3 (0.0-0.4); Eosinophils % 4.8 % (0.1-12.0); Estimated Glomerular Filt Rate 84 ml/min (>60); GFR (African American) 102 ML/MIN (>60); Glucose 105 mg/dl (74-100); Hematocrit 41.5 % (42.0-52.0); Hemoglobin 14.4 g/dL (14.1-18.0); Lymphocytes % 33.4 % (10-50); Mean Corpuscular HGB Conc 34.6 g/dL (31.8-35.4); Mean Corpuscular Volume 98.1 fl (80-94); Mean Platelet Volume 7.4 fl (7.4-10.4); Monocytes # 0.5 K/mm3 (0.1-1.0); Monocytes % 7.6 % (1.7-9.3); Neutrophils # 3.1 K/mm3 (1.8-7.8); Neutrophils % 53.3 % (37.0-80.0); Platelet Count 160 K/mm3 (142-424); Red Blood Count 4.23 M/mm3 (4.60-6.20); White Blood Count 5.9 K/mm3 (4.8-10.8)
[2020-01-14 09:53] LABS: Coronavirus 19 IgG Antibody Negative (Negative); Coronavirus 19 IgM Antibody Negative (Negative)
--- NOTE | 2020-01-14 14:00 | XR_ITS ---
PROCEDURE: XR CHEST PORTABLE CLINICAL HISTORY: Confirm pacemaker/AID placement COMPARISON: CR CXR1 CHEST-PORTABLE from 12/23/2012 CR CXR CHEST(2 VIEWS-NOT PORTABLE) from 01/11/[address] [facility] [address] CHEST W/O CONTRAST from 02/12/2017 CR [id number] XR ribs RT min 3V w CXR1V from 08/03/2017 FINDINGS: There has been a prior CABG. There is a bipolar pacemaker present from right subclavian approach. The leads are in good position. There is no evidence of pneumothorax. There is some minimal atelectatic change in the right perihilar region. No acute bony abnormalities. IMPRESSION: Status post pacemaker placement without evidence of immediate complications with good lead placement Dictated by: Larry Sam MD 01/14/2020 14:22 Larry Sam MD in [place] 01/14/2020 14:22
--- NOTE | 2020-01-16 13:14 | HMH.ANESCL ---
[facility] Anesthesia Checklist - Structural Data Admitted From: Home Planned Operative Procedure/s: pacemaker Consent for Planned Operative Procedure(s) Verified: Yes - Airway Assessment C-Spine Mobility Assessed: Yes TMJ Mobility Assessed: Yes Dentition: Poor Dentition - Neurological Assessment Level of Consciousness: Awake, Alert, Appropriate - Anesthesia Plan Anesthesia Risk discussed: Yes Anesthesia Plan: Patient unable to respond/answer ASA Class: III Anesthesia Type: MAC [facility] History I have reviewed the patient's past medical history: Yes Medical History: Reports:: Atherosclerotic Heart Disease, Coronary Artery Disease, Diabetes Mellitus Type 2, Hyperlipidemia, Hypertension, Myocardial Infarction Denies:: Cancer, Diabetes Mellitus Type 1, Internal Pacemaker, MRSA, Seizures *Have you ever received a pneumonia vaccine?: No *Have you received a flu vaccine this season?: No Other Medical History: Reports: Arthritis Anesthesia experience/problems:: none Other Surgeries: Yes: CABG, Cardiac Catheterization, Colonoscopy, Coronary Stent. No: Pacemaker Amputation: No Fractures: No - *Social History Smoking Status: Never smoker #Yrs smoked (if former smoker): 30 Alcohol Intake: never Alcohol Intake Frequency:: other Substance Use Type: denies use *Occupational Status:: employed Housing: house Household Members: significant other *Travel in the last 8 weeks: Inside the [facility] Family Hx:: Coronary Artery Disease, Heart Attack, Diabetes
== END 2020-01-14 14:58 | disposition home or self-care (01) ==
LOC: CATHLAB 08:52
PROVIDERS: PCP Family Medicine; Visit Provider Internal Medicine
DX: I49.5 Sick sinus syndrome (principal); I25.10 Atherosclerotic heart disease of native coronary artery without angina pectoris; Z95.1 Presence of aortocoronary bypass graft; I10 Essential (primary) hypertension; E11.9 Type 2 diabetes mellitus without complications; E03.9 Hypothyroidism, unspecified; Z79.899 Other long term (current) drug therapy
CPT/HCPCS: 33208; 71045; 80048; 85025; 86328; C1785; C1898; J2704

== ENCOUNTER → 2020-01-21 11:46 | Outpatient (CLI) | payer MEDICARE, SELFPAY ==
--- NOTE | 2020-01-21 11:51 | XR_ITS ---
PROCEDURE: XR CHEST 2V CLINICAL HISTORY: recent ppm insertion, post op pain Pacemaker insertion with pain COMPARISON: CR CXR CHEST(2 VIEWS-NOT PORTABLE) from 01/11/[address] [facility] [address] CHEST W/O CONTRAST from 02/12/2017 CR [id number] XR ribs RT min 3V w CXR1V from 08/03/2017 CR XR CHEST PORTABLE from 01/14/2020 FINDINGS: There is a bipolar pacemaker present from right subclavian approach. There has been a prior CABG. The leads of the pacemaker appears to be in good position. No evidence of pneumothorax. The lungs are clear without infiltrates, suspicious nodules, or pleural effusions. Degenerative changes thoracic spine IMPRESSION: Prior CABG with pacemaker present. No acute finding Dictated by: Larry Sam MD 01/21/2020 14:03 Larry Sam MD in [place] 01/21/2020 14:03
== END ==
PROVIDERS: PCP Family Medicine; Visit Provider Urology
DX: G89.18 Other acute postprocedural pain (principal)
CPT/HCPCS: 71046

== ENCOUNTER → 2020-04-02 09:04 | Outpatient (CLI) | payer MEDICARE, SELFPAY ==
--- NOTE | 2020-04-02 09:10 | CA_ITS ---
APPROVED REPORT EXAM: Limited 2D Echocardiogram Adjunct Instructor In Economics: Mitzy Epstein RVT Ht: 6 ft 0 in Wt: 280lbs BSA: 2.46 BP: 152/104 mmHg Indications: DEFINITY STUDY,SOA,CP,CAD,CABG,R/O PACEMAKER CARDIOMYOPATHY,HTN,HLD,ABN EKG Echo Enhancing Agent Indication: Endocardial border delineation Agent(s) / Amount(s) Used: Definity 2 cc M-Mode Dimensions RVDd 3.14 cm (0.9-2.6) LA Diam 5.38 cm (1.9-4.0) LVDd 3.78 cm (3.5-5.7) Ao Diam 3.55 cm (2.0-3.7) LVDs 4.67 cm (3.5-5.7) IVSd 0.79 cm (0.6-1.1) PWd 3.91 cm (0.6-1.1) EF (Teich) 64.70% FS 23.50% EDV (Teich) 61.20 mL ESV (Teich) 100.80 mL Conclusion 1. Limited study with Definity contrast was performed, there is no left ventricular thrombus seen. 2. Visually estimated ejection fraction approximately 45%, there is moderate hypokinesis involving distal septum and apical wall. Electronically signed by : Faisal Garza, 04/02/2020 11:54:29
== END ==
PROVIDERS: PCP Family Medicine; Visit Provider Internal Medicine
DX: R07.89 Other chest pain (principal); R06.09 Other forms of dyspnea; R94.31 Abnormal electrocardiogram [ECG] [EKG]; I25.10 Atherosclerotic heart disease of native coronary artery without angina pectoris; I49.5 Sick sinus syndrome
CPT/HCPCS: 93308; Q9957

== ENCOUNTER 2020-04-05 12:59 | Outpatient (RCR) | payer MEDICARE, SELFPAY | END 2020-07-28 13:55 | disposition home or self-care (01) | LOC: PT 12:59 | PROVIDERS: Visit Provider Physician Assistant | DX: R07.89 Other chest pain (principal); R06.09 Other forms of dyspnea; I25.10 Atherosclerotic heart disease of native coronary artery without angina pectoris; I49.5 Sick sinus syndrome; Z95.1 Presence of aortocoronary bypass graft | CPT/HCPCS: 93798 ==

== ENCOUNTER → 2020-04-12 13:07 | Outpatient (CLI) | payer MEDICARE, SELFPAY ==
--- NOTE | 2020-04-12 13:10 | XR_ITS ---
PROCEDURE: XR CHEST 2V CLINICAL HISTORY: pacemaker lead malfunction Heart disease shortness of breath COMPARISON: CT [facility] CT CHEST W/O CONTRAST from 02/12/2017 CR [id number] XR ribs RT min 3V w CXR1V from 08/03/2017 CR XR CHEST PORTABLE from 01/14/2020 CR XR CHEST 2V from 01/21/2020 FINDINGS: Cardiomegaly without failure. Prior CABG with bipolar pacemaker present from right subclavian approach. The lungs are clear without infiltrates, suspicious nodules, or pleural effusions. There are degenerative changes in the midthoracic spine. IMPRESSION: Cardiomegaly. Prior CABG with pacemaker present. No change with no acute finding. Dictated by: Larry Sam MD 04/12/2020 16:00 Larry Sam MD in [place] 04/12/2020 16:00
[2020-04-12 15:22] LABS: Basophils # 0.1 K/mm3 (0-0.2); Basophils % 0.6 % (0.1-2.0); Eosinophils # 0.3 K/mm3 (0.0-0.4); Eosinophils % 3.8 % (0.1-12.0); Hematocrit 49.6 % (42.0-52.0); Hemoglobin 15.9 g/dL (14.1-18.0); Lymphocytes # 2.7 K/mm3 (0.7-4.5); Lymphocytes % 32.8 % (10-50); Mean Corpuscular HGB Conc 32.2 g/dL (31.8-35.4); Mean Corpuscular Hemoglobin 32.9 pg (27.0-31.2); Mean Corpuscular Volume 102.3 fl (80-94); Mean Platelet Volume 8.1 fl (7.4-10.4); Monocytes # 0.4 K/mm3 (0.1-1.0); Monocytes % 4.6 % (1.7-9.3); Neutrophils # 4.8 K/mm3 (1.8-7.8); Neutrophils % 58.1 % (37.0-80.0); Platelet Count 246 K/mm3 (142-424); Red Blood Count 4.85 M/mm3 (4.60-6.20); Red Cell Distribution Width 13.7 % (11.5-17.5); White Blood Count 8.3 K/mm3 (4.8-10.8)
[2020-04-12 15:56] LABS: Anion Gap 15.4 mEq/L (5-15); Blood Urea Nitrogen 26 mg/dl (9-20); Calcium 9.7 mg/dl (8.4-10.2); Carbon Dioxide 30 mmol/L (22.0-30.0); Chloride 101 mmol/L (98-107); Estimated Glomerular Filt Rate 47 ml/min (>60); GFR (African American) 57 ML/MIN (>60); Glucose 122 mg/dl (74-100); Potassium 5.4 mmoL/L (3.5-5.1); Sodium 141 mmol/L (136-145)
[2020-04-12 16:27] LABS: Coronavirus 19 IgG Antibody Negative (Negative); Coronavirus 19 IgM Antibody Negative (Negative)
== END ==
PROVIDERS: Internal Medicine; PCP Family Medicine; Visit Provider Nurse Practitioner Family
DX: T82.111A Breakdown (mechanical) of cardiac pulse generator (battery), initial encounter (principal)
CPT/HCPCS: 36415; 71046; 80048; 85025; 86328

== ENCOUNTER → 2020-04-12 14:21 | Outpatient (CLI) | payer MEDICARE, SELFPAY | PROVIDERS: Visit Provider Internal Medicine | DX: Z01.818 Encounter for other preprocedural examination (principal) | CPT/HCPCS: 36415; 71046; 80048; 85025; 86328 ==

== ENCOUNTER 2020-04-13 08:54 | Day surgery (SDC) | payer MEDICARE, SELFPAY ==
[2020-04-13] VITALS (9 sets, daily range): BP systolic 115–165; BP diastolic 54–87; PULSE 42–61; RESP 12–20; TEMP 36.1–36.8; O2SAT 91–97; BMI 38.0
--- NOTE | 2020-04-13 | IR_ITS ---
APPROVED REPORT Patient Location: Outpatient Admin Dir: GILBERTO Almonte RT (R) PROCEDURES Pocket Revision Right Atrial Lead Revision INDICATION Displacement of the right atrial lead. Informed consent was obtained prior to the procedure. COMPLICATIONS None Estimated Blood Loss: less than 10ml TECHNIQUE 1% lidocaine with epinephrine used to anesthetize the right anterior aspect of the chest. Scalpel was used to make the initial cutaneous incision and then used to dissect down to the existing pacemaker generator. The generator was removed from the existing pocket. Digital manipulation was required along with intermittent usage of scalpel in order to revise the pocket. The chronic atrial lead was removed from the current generator. The patient was then placed in Trendelenburg position and the subclavian vein was accessed via the Selinger technique. A 6 Canadian sheath was placed under fluoroscopic guidance into the subclavian vein over the wires. The dilator was removed from the sheath. Using fluoroscopic guidance, the chronic right atrial lead was placed into the right atrial appendage, screwed and secured into place. Electronic interrogation proved acceptable thresholds and voltage within the lead. The atrial lead was then secured into place using 3-0 silk. 1 gram of Ancef was used to flush the pocket. Following the pacemaker generator being secured to the fascia and in place, Monocryl was used to close the subcutaneous layers while brandi were used to close the cutaneous layer. A pressure dressing was placed and the patient was transferred to the postop holding area in stable condition for postoperative care. INTERROGATION Generator Model number: L311 Generator Serial number: [id number] Atrial lead model number: 7841 Atrial lead serial number: [id number] P-wave: 3.0 mV Impedence: 632 Ohms Threshold: 1.0V @.4 ms RV Thresholds R wave: 13 mV Impedence: 732 Ohms Threshold: .5V@ .4ms Pacing Parameters: Mode: DDDR with AAIR-VVI Base/Max Track: 60/130 Output 3.5V @.4 ms No diaphragmatic stimulation at 10 volts. PLAN 1. Post-op care. Electronically signed by : Jacob Whitfield, 04/14/2020 11:34:02
--- NOTE | 2020-04-13 11:26 | XR_ITS ---
PROCEDURE: XR CHEST PORTABLE CLINICAL HISTORY: Confirm pacemaker/AID placement COMPARISON: CT [facility] CT CHEST W/O CONTRAST from 02/12/2017 CR XR CHEST PORTABLE from 01/14/2020 CR XR CHEST 2V from 01/21/2020 CR XR CHEST 2V from 04/12/2020 FINDINGS: There is mild cardiomegaly. There has been a prior CABG. No evidence of CHF. There is a bipolar pacemaker from right subclavian approach. Right atrial and right ventricular leads are present. No evidence of pneumothorax. Lungs are clear. IMPRESSION: Status post bipolar pacemaker placement from right subclavian approach with leads in good position and no evidence of pneumothorax. Dictated by: Larry Sam MD 04/13/2020 11:54 Larry Sam MD in [place] 04/13/2020 11:54
--- NOTE | 2020-04-13 11:28 | HMH.ANESCL ---
[facility] Anesthesia Checklist - Patient Identification Patient Identification: Arm Band, Verbal (Name & ) - Structural Data Admitted From: Home Planned Operative Procedure/s: Right atrial lead revision Consent for Planned Operative Procedure(s) Verified: Yes Verified Documents: Surgical Consent, History and Physical - NPO Status Verified Time NPO: 00:00 - Chart Verification Results Verified: CBC, BMP - Additional verifications Anesthesia Reactions: No - Airway Assessment C-Spine Mobility Assessed: Yes TMJ Mobility Assessed: Yes Dentition: Good Dentition - Neurological Assessment Level of Consciousness: Awake, Alert, Appropriate, Follows Commands Hx Seizures: No Numbness or tingling in extremities: No - Anesthesia Plan Anesthesia Risk discussed: Yes Anesthesia Plan: Verified ASA Class: III Anesthesia Type: MAC [facility] History I have reviewed the patient's past medical history: Yes Medical History: Reports:: Atherosclerotic Heart Disease, Coronary Artery Disease, Diabetes Mellitus Type 2, Gastroesophageal Reflux Disease(GERD), Hyperlipidemia, Hypertension, Internal Pacemaker, Myocardial Infarction Denies:: Cancer, Diabetes Mellitus Type 1, MRSA, Seizures *Have you ever received a pneumonia vaccine?: Yes *Have you received a flu vaccine this season?: Yes Other Medical History: Reports: Arthritis Comment:: obesity Anesthesia experience/problems:: None Other Surgeries: Yes: CABG, Cardiac Catheterization, Colonoscopy, Coronary Stent, Pacemaker Amputation: No Fractures: No - *Social History Last grade of school completed: High school graduate Smoking Status: Never smoker #Yrs smoked (if former smoker): 30 Alcohol Intake: never Alcohol Intake Frequency:: other Substance Use Type: denies use *Occupational Status:: retired Housing: house Household Members: significant other *Travel in the last 8 weeks: None Family Hx:: Coronary Artery Disease, Heart Attack, Diabetes
== END 2020-04-13 13:09 | disposition home or self-care (01) ==
LOC: CATHLAB 08:55
PROVIDERS: PCP Family Medicine; Visit Provider Internal Medicine
DX: T82.120A Displacement of cardiac electrode, initial encounter (principal); Z45.018 Encounter for adjustment and management of other part of cardiac pacemaker; I49.5 Sick sinus syndrome; I10 Essential (primary) hypertension; E03.9 Hypothyroidism, unspecified; E78.5 Hyperlipidemia, unspecified; Z79.82 Long term (current) use of aspirin; Z79.01 Long term (current) use of anticoagulants; Z79.899 Other long term (current) drug therapy
CPT/HCPCS: 33216; 33234; 71045; C1894

== ENCOUNTER → 2020-04-26 13:20 | Outpatient (CLI) | payer MEDICARE, SELFPAY ==
[2020-04-26 15:45] LABS: Chloride 100 mmol/L (98-107); Sodium 140 mmol/L (136-145)
[2020-04-26 15:46] LABS: Potassium 4.5 mmoL/L (3.5-5.1)
[2020-04-26 15:49] LABS: Anion Gap 12.5 mEq/L (5-15); Blood Urea Nitrogen 17 mg/dl (9-20); Calcium 9.2 mg/dl (8.4-10.2); Carbon Dioxide 32 mmol/L (22.0-30.0); Estimated Glomerular Filt Rate 75 ml/min (>60); GFR (African American) 90 ML/MIN (>60); Glucose 125 mg/dl (74-100)
== END ==
PROVIDERS: Visit Provider Nurse Practitioner Family
DX: E87.5 Hyperkalemia (principal)
CPT/HCPCS: 36415; 80048

== ENCOUNTER → 2020-07-06 09:56 | Outpatient (CLI) | payer MEDICARE, SELFPAY ==
[2020-07-06 10:46] LABS: Basophils % 0.4 % (0.1-2.0); Eosinophils # 0.2 K/mm3 (0.0-0.4); Eosinophils % 2.1 % (0.1-12.0); Hematocrit 45.7 % (42.0-52.0); Hemoglobin 14.9 g/dL (14.1-18.0); Lymphocytes # 1.5 K/mm3 (0.7-4.5); Lymphocytes % 17.4 % (10-50); Mean Corpuscular HGB Conc 32.7 g/dL (31.8-35.4); Mean Corpuscular Hemoglobin 33.1 pg (27.0-31.2); Mean Corpuscular Volume 101.2 fl (80-94); Mean Platelet Volume 8.3 fl (7.4-10.4); Monocytes # 0.6 K/mm3 (0.1-1.0); Monocytes % 6.9 % (1.7-9.3); Neutrophils # 6.4 K/mm3 (1.8-7.8); Neutrophils % 73.1 % (37.0-80.0); Platelet Count 205 K/mm3 (142-424); Red Blood Count 4.51 M/mm3 (4.60-6.20); Red Cell Distribution Width 13.9 % (11.5-17.5); White Blood Count 8.7 K/mm3 (4.8-10.8)
== END ==
PROVIDERS: PCP Family Medicine; Referring Provider Family Medicine; Visit Provider Family Medicine
DX: Z20.822 Contact with and (suspected) exposure to COVID-19 (principal); I10 Essential (primary) hypertension
CPT/HCPCS: 36415; 85025; 87275; 87276; U0003

== ENCOUNTER → 2020-10-27 11:31 | Outpatient (CLI) | payer MEDICARE, SELFPAY ==
--- NOTE | 2020-10-27 11:41 | XR_ITS ---
PROCEDURE: XR CHEST 2V CLINICAL HISTORY: SOB COMPARISON: CT [facility] CT CHEST W/O CONTRAST from 02/12/2017 CR XR CHEST 2V from 01/21/2020 CR XR CHEST 2V from 04/12/2020 CR XR CHEST PORTABLE from 04/13/2020 FINDINGS: Prior CABG. Borderline cardiomegaly without failure. No evidence of CHF. Bipolar pacemaker is present from the right subclavian approach. There are mild degenerative changes in the thoracic spine with anterior osteophytes. No acute bony abnormalities. IMPRESSION: Prior CABG with bipolar pacer. Borderline cardiomegaly. No change with no acute finding Dictated by: Larry Sam MD 10/27/2020 12:23 Larry Sam MD in [place] 10/27/2020 12:23
--- NOTE | 2020-10-27 12:03 | ECG_ITS ---
APPROVED REPORT Exam: Resting ECG HR:60 bpm ECG Measurements Heart Rate 60 AXES NE 150 P 39 QRSd 166 QRS 111 QT 468 T -8 QTc 468 Conclusion Electronic atrial pacemaker Right axis deviation Left bundle branch block Abnormal ECG Electronically signed by : Micheal Ayala, 10/29/2020 10:27:13
== END ==
PROVIDERS: PCP Family Medicine; Visit Provider Nurse Practitioner
DX: R06.02 Shortness of breath (principal)
CPT/HCPCS: 71046; 93005

== ENCOUNTER → 2020-11-22 09:13 | Outpatient (CLI) | payer MEDICARE, SELFPAY ==
[2020-11-22 09:49] LABS: Basophils % 0.5 % (0.1-2.0); Eosinophils # 0.2 K/mm3 (0.0-0.4); Eosinophils % 3.7 % (0.1-12.0); Hematocrit 43.4 % (42.0-52.0); Hemoglobin 14.9 g/dL (14.1-18.0); Lymphocytes # 2.1 K/mm3 (0.7-4.5); Lymphocytes % 31.4 % (10-50); Mean Corpuscular HGB Conc 34.3 g/dL (31.8-35.4); Mean Corpuscular Hemoglobin 33.3 pg (27.0-31.2); Mean Corpuscular Volume 96.9 fl (80-94); Mean Platelet Volume 8.1 fl (7.4-10.4); Monocytes # 0.4 K/mm3 (0.1-1.0); Neutrophils # 3.8 K/mm3 (1.8-7.8); Neutrophils % 58.4 % (37.0-80.0); Platelet Count 230 K/mm3 (142-424); Red Blood Count 4.47 M/mm3 (4.60-6.20); Red Cell Distribution Width 13.9 % (11.5-17.5); White Blood Count 6.6 K/mm3 (4.8-10.8)
[2020-11-22 10:23] LABS: Chloride 103 mmol/L (98-107); Potassium 4.3 mmoL/L (3.5-5.1); Sodium 139 mmol/L (136-145)
[2020-11-22 10:26] LABS: Anion Gap 13.3 mEq/L (5-15); Blood Urea Nitrogen 22 mg/dl (9-20); Carbon Dioxide 27 mmol/L (22.0-30.0); Estimated Glomerular Filt Rate 75 ml/min (>60); GFR (African American) 90 ML/MIN (>60); Glucose 142 mg/dl (74-100)
== END ==
PROVIDERS: Visit Provider Urology
DX: R06.00 Dyspnea, unspecified (principal); Z91.81 History of falling; Z01.812 Encounter for preprocedural laboratory examination; Z11.52 Encounter for screening for COVID-19
CPT/HCPCS: 36415; 80048; 85025; U0003

== ENCOUNTER 2020-11-24 08:30 | Day surgery (SDC) | payer MEDICARE, SELFPAY ==
[2020-11-24] VITALS (12 sets, daily range): BP systolic 110–145; BP diastolic 61–89; PULSE 59–60; RESP 13–18; TEMP 36.6–36.8; O2SAT 93–98; BMI 37.7
--- NOTE | 2020-11-24 08:11 | IR_ITS ---
APPROVED REPORT Patient Location: Outpatient Automatic Grinder Operator: GILBERTO Prescott RT (R) PROCEDURES Left heart catheterization Left ventriculogram Selective coronary angiogram Selective engage left internal mammary artery Selective engagement of saphenous vein graft to the right coronary artery Selective engagement of the saphenous vein graft to the circumflex artery Selective gating the saphenous vein graft to the diagonal artery INDICATION Coronary disease, Accelerated angina pectoris, Dynamic EKG abnormalities, History of coronary bypass surgery Informed consent was obtained prior to the procedure. COMPLICATIONS None Estimated Blood Loss: Less than 10 mls TECHNIQUE One percent lidocaine used to anesthetize the right groin. The right femoral artery was accessed via the Seldinger technique and a 5 [place] sheath was placed in the right femoral artery. A JL 4, JR4 catheter were used to perform left heart catheterization, left ventriculogram selective coronary angiography as well as selective engagement of the 3 vein grafts and the left internal mammary artery. At the end of the procedure the apparatus was removed the groin was reprepped gloves were changed sheath was removed and hemostasis achieved using Angio-Seal device patient was transferred to the postoperative stable addition ANGIOGRAPHIC RESULTS The left main artery Has distal 80% stenosis The left anterior descending artery Has slow flow down the benton vessel secondary to competitive flow from the left internal mammary artery The circumflex artery Dominant proximally occluded. There is a small to moderate sized ramus intermedius which is patent The right coronary artery Is probably nondominant and has mid vessel 80% stenosis and then subtotally occluded. Distally there are scant collaterals and a right to right manner filling the posterior lateral branch The RADER ventriculogram reveals Mildly reduced at 45% The left ventricular end-diastolic pressure 10 mmHg Left internal mammary arteries widely patent to the LAD Saphenous vein graft to diagonal artery ostially occluded Saphenous vein graft to circumflex artery widely patent which backfills 2 additional obtuse marginal arteries Saphenous vein graft to right coronary ostially occluded IMPRESSION Interval loss of saphenous vein graft to diagonal artery which was patent during last cardiac catheterization Patent BLAKE to LAD Patent saphenous vein graft to large circumflex artery Subtotally occluded right coronary artery with scant right to right collaterals Reduced ejection fraction Normal left ventricular end-diastolic pressure PLAN 1. Maximize medical management 2. At this point I cannot recommend revascularizing the chronically occluded right coronary. I believe this would be problematic and unlikely to benefit patient in either the short or long-term. Medical management must be advanced. Revascularization would only be considered if symptoms are absolutely recalcitrant and impair patient's quality of life Electronically signed by : Jacob Whitfield, 11/24/2020 13:34:19
== END 2020-11-24 15:27 | disposition home or self-care (01) ==
LOC: CATHLAB 08:31
PROVIDERS: PCP Family Medicine; Visit Provider Internal Medicine
DX: E66.9 Obesity, unspecified (principal); I25.118 Atherosclerotic heart disease of native coronary artery with other forms of angina pectoris; K21.9 Gastro-esophageal reflux disease without esophagitis; R00.2 Palpitations; R06.09 Other forms of dyspnea; R94.31 Abnormal electrocardiogram [ECG] [EKG]; Z95.0 Presence of cardiac pacemaker; Z95.1 Presence of aortocoronary bypass graft; R29.6 Repeated falls; Z79.899 Other long term (current) drug therapy; I25.82 Chronic total occlusion of coronary artery
CPT/HCPCS: 93459; 99152; C1725; C1760; C1769; C1894; J1644; Q9967

== ENCOUNTER → 2021-02-10 09:48 | Outpatient (CLI) | payer MEDICARE, SELFPAY ==
--- NOTE | 2021-02-10 09:50 | US_ITS ---
PROCEDURE: US ABD. AORTA SCREENING CLINICAL INDICATION: SCREENING DUE TO AGE AND SMOKING HISTORY COMPARISON: No exams were available for comparison FINDINGS: No evidence of abdominal aortic aneurysm. Proximal common iliacs have an unremarkable appearance. IMPRESSION: Negative for abdominal aortic aneurysm Dictated by: Larry Sam MD 02/10/2021 16:11 Larry Sam MD in [place] 02/10/2021 16:11
== END ==
PROVIDERS: PCP Family Medicine; Visit Provider Family Medicine
DX: Z13.6 Encounter for screening for cardiovascular disorders (principal); Z87.891 Personal history of nicotine dependence
CPT/HCPCS: 76705

== ENCOUNTER → 2021-03-09 10:18 | Outpatient (CLI) | payer MEDICARE, SELFPAY | PROVIDERS: Visit Provider Internal Medicine Rheumatology | DX: M10.9 Gout, unspecified (principal); Z79.899 Other long term (current) drug therapy | CPT/HCPCS: 36415; 84550 ==

== ENCOUNTER → 2022-03-21 09:34 | Outpatient (CLI) | payer MEDICARE, SELFPAY ==
--- NOTE | 2022-03-21 09:35 | CA_ITS ---
FINAL REPORT TECHNIQUE: Color Doppler, duplex Doppler and venegas scale sonography of the bilateral neck arterial vasculature was performed. Velocities were measured in the carotid arteries. Stenosis evaluation based on the validated velocity criteria. CLINICAL HISTORY: nolan FINDINGS: The peak systolic velocity of the right common carotid artery is 61 cm/s. The peak systolic velocity of the right internal carotid artery is 86 cm/s and end diastolic velocity 25 cm/s. The ICA/CCA ratio is 1.4. A mild amount of plaque is present. The right external carotid artery is patent. The right vertebral artery is patent with antegrade flow. The peak systolic velocity of the left common carotid artery is 76 cm/s. The peak systolic velocity of the left internal carotid artery is 73 cm/s and end diastolic velocity 27 cm/s. The ICA/CCA ratio is 1.0. A mild amount of plaque is present. The left external carotid artery is patent.The left vertebral artery is patent with antegrade flow. IMPRESSION: Less than 50% bilateral carotid stenosis. Bilateral patent vertebral arteries with antegrade flow. If indicated, CTA or MRA could further evaluate. Reviewed, Interpreted and Dictated by Jean Carlos Craig III, MD Transcribed by Meredith Patricia Authenticated and [facility]
== END ==
PROVIDERS: PCP Family Medicine; Visit Provider Nurse Practitioner Family
DX: E78.2 Mixed hyperlipidemia (principal); I10 Essential (primary) hypertension; I25.10 Atherosclerotic heart disease of native coronary artery without angina pectoris; R09.89 Other specified symptoms and signs involving the circulatory and respiratory systems; Z95.0 Presence of cardiac pacemaker; Z95.1 Presence of aortocoronary bypass graft
CPT/HCPCS: 93880

== ENCOUNTER → 2022-08-08 11:07 | Outpatient (CLI) | payer MEDICARE, SELFPAY ==
--- NOTE | 2022-08-08 11:15 | ECG_ITS ---
APPROVED REPORT Exam: Resting ECG HR:59 bpm ECG Measurements Heart Rate 59 AXES MS 319 P 64 QRSd 114 QRS 26 QT 375 T 12 QTc 375 Conclusion ELECTRONIC ATRIAL PACEMAKER MINIMAL VOLTAGE CRITERIA FOR LVH, CONSIDER NORMAL VARIANT [MEETS CRITERIA IN ONE OF: R(aVL), S(V1), R(V5), R(V5/V6)+S(V1)] INFERIOR MYOCARDIAL INFARCTION , PROBABLY OLD [40+ ms Q WAVE AND/OR ST/T ABNORMALITY IN II/aVF] MODERATE T-WAVE ABNORMALITY, CONSIDER ANTEROLATERAL ISCHEMIA [-0.1+ mV T-WAVE IN V3-V6] ABNORMAL ECG UNCONFIRMED REPORT Electronically signed by : Micheal Ayala MD 08/08/2022 20:28:47
--- NOTE | 2022-08-08 11:18 | XR_ITS ---
FINAL REPORT TECHNIQUE: Chest PA & Lateral CLINICAL HISTORY: CHEST PAIN, OPEN HEART SX 2003, PACEMAKER PLACED IN 2021. FELT HEART BEAT SENSATION IN THROAT, FEELS OFF BALANCE COMPARISON: October 2020 there is a right subclavian FINDINGS: 2 views of the chest were performed. Pacemaker. The heart size is normal. The mediastinum is within normal limits. There is mild atelectasis or scarring in the left lung base. There are no pleural effusions. There is no pneumothorax. There are degenerative changes of the thoracic spine. IMPRESSION: Mild atelectasis or scarring in the left lung base. Reviewed, Interpreted and Dictated by Jean Carlos Craig III, MD Transcribed by Darin Duval Authenticated and [facility]
== END ==
PROVIDERS: PCP Family Medicine; Visit Provider Family Medicine
DX: R07.9 Chest pain, unspecified (principal)
CPT/HCPCS: 71046; 93005

== ENCOUNTER → 2022-08-10 11:30 | Outpatient (CLI) | payer MEDICARE, SELFPAY ==
[2022-08-10 12:33] LABS: Alanine Aminotransferase 28 U/L (12-78); Albumin Level 4.6 g/dl (3.5-5.0); Alkaline Phosphatase 64 U/L (38-126); Aspartate Amino Transferase 26 U/L (17-59); Bilirubin,Direct 0.4 mg/dl (0.0-0.4); Bilirubin,Indirect 0.4 mg/dL (0.0-0.9); Bilirubin,Total 0.8 mg/dl (0.2-1.3); Bilirubin,Unconjugated 0.4 mg/dL (0.0-1.1); Total Protein,Serum 7.2 g/dl (6.3-8.2)
[2022-08-10 12:51] LABS: Free Thyroxine Index 2.8 ug/dL (5.93-13.13); T4 (Thyroxine) 8.1 ug/dl (5.53-11.0); Triiodothryronine (T3) Uptake 35 % (23.5-40.5)
[2022-08-10 13:04] LABS: Thyroid Stimulating Hormone 1.48 uIU/mL (0.465-4.68); Troponin I < 0.01 ng/ml (0.00-0.034)
== END ==
PROVIDERS: PCP Family Medicine; Visit Provider Nurse Practitioner Family
DX: E66.9 Obesity, unspecified (principal); E78.2 Mixed hyperlipidemia; I10 Essential (primary) hypertension; I25.10 Atherosclerotic heart disease of native coronary artery without angina pectoris; K21.9 Gastro-esophageal reflux disease without esophagitis; R06.09 Other forms of dyspnea; R07.89 Other chest pain; R94.31 Abnormal electrocardiogram [ECG] [EKG]; Z87.891 Personal history of nicotine dependence; Z95.0 Presence of cardiac pacemaker; Z95.1 Presence of aortocoronary bypass graft; Z68.36 Body mass index [BMI] 36.0-36.9, adult
CPT/HCPCS: 36415; 80076; 84436; 84443; 84479; 84484

== ENCOUNTER → 2022-08-30 11:05 | Outpatient (CLI) | payer MEDICARE, SELFPAY | PROVIDERS: PCP Family Medicine; Visit Provider Nurse Practitioner Family | DX: E66.9 Obesity, unspecified (principal); E78.2 Mixed hyperlipidemia; I10 Essential (primary) hypertension; I25.10 Atherosclerotic heart disease of native coronary artery without angina pectoris; K21.9 Gastro-esophageal reflux disease without esophagitis; R06.09 Other forms of dyspnea; R07.89 Other chest pain; R94.31 Abnormal electrocardiogram [ECG] [EKG]; Z87.891 Personal history of nicotine dependence; Z95.0 Presence of cardiac pacemaker; Z95.1 Presence of aortocoronary bypass graft; Z68.36 Body mass index [BMI] 36.0-36.9, adult | CPT/HCPCS: 78452; 93017; 93306; A9502; J2785 ==

== ENCOUNTER → 2023-02-13 10:09 | Outpatient (CLI) | payer MEDICARE, SELFPAY ==
[2023-02-13 11:04] LABS: Alanine Aminotransferase 29 U/L (12-78); Albumin Level 4.2 g/dl (3.5-5.0); Albumin/Globulin Ratio 1.5 (1.1-1.8); Alkaline Phosphatase 70 U/L (38-126); Anion Gap 15.3 mEq/L (5-15); Aspartate Amino Transferase 27 U/L (17-59); Bilirubin,Total 0.8 mg/dl (0.2-1.3); Blood Urea Nitrogen 21 mg/dl (9-20); Calcium 8.9 mg/dl (8.4-10.2); Carbon Dioxide 27 mmol/L (22.0-30.0); Chloride 101 mmol/L (98-107); Chol/HDL Ratio 5.1 (1-3.5); Cholesterol 216 mg/dl (140-200); Estimated Glomerular Filt Rate 50 ml/min (>60); GFR (African American) 61 ML/MIN (>60); Globulin 2.8 g/dL (1.3-3.2); Glucose 108 mg/dl (74-100); HDL Cholesterol 42 mg/dl (40-60); Potassium 4.3 mmoL/L (3.5-5.1); Sodium 139 mmol/L (136-145); Triglycerides 174 mg/dl (30-150); VLDL Cholesterol 35 mg/dL (0-40)
[2023-02-13 11:14] LABS: Direct LDL Cholesterol 125.64 mg/dL (100-129)
[2023-02-13 11:26] LABS: Hemoglobin A1C 5.8 % (4.0-6.0)
[2023-02-13 11:33] LABS: Thyroid Stimulating Hormone 3.27 uIU/mL (0.465-4.68)
== END ==
PROVIDERS: PCP Family Medicine; Visit Provider Family Medicine
DX: I10 Essential (primary) hypertension; E78.5 Hyperlipidemia, unspecified; E03.9 Hypothyroidism, unspecified; E11.9 Type 2 diabetes mellitus without complications
CPT/HCPCS: 36415; 80053; 80061; 83036; 84443

== ENCOUNTER 2023-06-13 10:24 | Outpatient (CLI) | payer MEDICARE, SELFPAY ==
[2023-06-13 10:40] LABS: Basophils # 0.1 K/mm3 (0-0.2); Eosinophils # 0.3 K/mm3 (0.0-0.4); Hematocrit 45.9 % (42.0-52.0); Hemoglobin 15.3 g/dL (14.1-18.0); Lymphocytes # 2.3 K/mm3 (0.7-4.5); Lymphocytes % 29.4 % (10-50); Mean Corpuscular HGB Conc 33.4 g/dL (31.8-35.4); Mean Corpuscular Hemoglobin 34.9 pg (27.0-31.2); Mean Corpuscular Volume 104.4 fl (80-94); Mean Platelet Volume 8.6 fl (7.4-10.4); Monocytes # 0.5 K/mm3 (0.1-1.0); Monocytes % 6.8 % (1.7-9.3); Neutrophils # 4.5 K/mm3 (1.8-7.8); Neutrophils % 58.7 % (37.0-80.0); Platelet Count 219 K/mm3 (142-424); White Blood Count 7.7 K/mm3 (4.8-10.8)
[2023-06-13 12:05] LABS: Chloride 101 mmol/L (98-107); Potassium 4.4 mmoL/L (3.5-5.1); Sodium 139 mmol/L (136-145)
[2023-06-13 12:07] LABS: Bilirubin,Unconjugated 0.6 mg/dL (0.0-1.1); Blood Urea Nitrogen 23 mg/dl (9-20); Estimated Glomerular Filt Rate 60 ml/min (>60); GFR (African American) 73 ML/MIN (>60)
[2023-06-13 12:08] LABS: Alanine Aminotransferase 38 U/L (12-78); Albumin Level 4.4 g/dl (3.5-5.0); Alkaline Phosphatase 64 U/L (38-126); Anion Gap 9.4 mEq/L (5-15); Aspartate Amino Transferase 32 U/L (17-59); Bilirubin,Direct 0.2 mg/dl (0.0-0.4); Bilirubin,Indirect 0.5 mg/dL (0.0-0.9); Bilirubin,Total 0.7 mg/dl (0.2-1.3); Calcium 9.2 mg/dl (8.4-10.2); Carbon Dioxide 33 mmol/L (22.0-30.0); Chol/HDL Ratio 6.3 (1-3.5); Cholesterol 225 mg/dl (140-200); Glucose 113 mg/dl (74-100); HDL Cholesterol 36 mg/dl (40-60); Total Protein,Serum 7.1 g/dl (6.3-8.2); Triglycerides 235 mg/dl (30-150); VLDL Cholesterol 47 mg/dL (0-40)
[2023-06-13 12:21] LABS: Direct LDL Cholesterol 141.81 mg/dL (100-129)
[2023-06-13 12:25] LABS: Free T4 (Free Thyroxine) 1.37 ng/dl (0.78-2.19)
[2023-06-13 12:39] LABS: Thyroid Stimulating Hormone 2.76 uIU/mL (0.465-4.68)
== END 2023-06-13 23:59 ==
LOC: LAB 10:26
PROVIDERS: PCP Family Medicine; Visit Provider Physician Assistant
DX: E78.5 Hyperlipidemia, unspecified (principal); I11.9 Hypertensive heart disease without heart failure; I25.10 Atherosclerotic heart disease of native coronary artery without angina pectoris; K21.9 Gastro-esophageal reflux disease without esophagitis; R94.31 Abnormal electrocardiogram [ECG] [EKG]; Z95.0 Presence of cardiac pacemaker; Z95.1 Presence of aortocoronary bypass graft; Z87.891 Personal history of nicotine dependence
CPT/HCPCS: 36415; 80048; 80061; 80076; 84439; 84443; 85025

== ENCOUNTER 2023-08-09 14:08 | Outpatient (CLI) | payer MEDICARE, SELFPAY ==
[2023-08-09 14:25] VITALS: BP 124/63; PULSE 59; RESP 17; O2SAT 96
[2023-08-09] MEDS: INCLISIRAN SODIUM 284 MG/1.5 ML SYRINGE SQ (14:25)
== END 2023-08-09 14:35 | disposition home or self-care (01) ==
PROVIDERS: PCP Family Medicine; Visit Provider Physician Assistant
DX: E78.5 Hyperlipidemia, unspecified (principal)
CPT/HCPCS: 96372; J1306

== ENCOUNTER 2023-10-01 07:39 | Outpatient (CLI) | payer MEDICARE, SELFPAY ==
--- NOTE | 2023-10-01 07:41 | CA_ITS ---
APPROVED REPORT EXAM: Comprehensive 2D, Doppler, and color-flow Echocardiogram Print Finishing Worker: Joanne Clark CRT Ht: 6 ft 0 in Wt: 275lbs BSA: 2.44 BP: 120/64 mmHg Indications: Obesity, Palpitations, Hypertension/HDD, ,Pacer, cabg, stents M-Mode Dimensions RVDd 2.24 cm (0.9-2.6) LA Diam 4.50 cm (1.9-4.0) LVDd 7.25 cm (3.5-5.7) LVDs 5.13 cm (3.5-5.7) IVSd 1.44 cm (0.6-1.1) PWd 0.72 cm (0.6-1.1) EF (Teich) 54.60% FS 29.20% EDV (Teich) 276.40 mL ESV (Teich) 125.50 mL LV Diastology E Decel Time 150 (160-240 msec) E/A Ratio 0.11 Aortic Valve AO Peak GR. 3.90 mmHg Mitral Valve MV E Max Kieran. 11.0 (40-130 cm/s) MV A Velocity 94.0 (40-130 cm/s) E/A Ratio 0.11 MV PHT 44.0 ms Pulmonary Valve PV Peak Velocity 129.0 (50-150 cm/s) Tricuspid Valve TR P. Velocity 267.00 cm/s RAP Estimate 10.00 mmHg RVSP 38.50 mmHg Left Ventricle The left ventricle is normal size. The left ventricular systolic function is normal. The left ventricular ejection fraction is within the normal range. There is increased LV wall thickness. There is normal LV segmental wall motion. The left ventricular diastolic function is normal. LVEF is 55%. Right Ventricle The right ventricle is normal size. The right ventricular systolic function is normal. Atria The left atrium is mildly dilated. The right atrium is mildly dilated. There is no Doppler evidence of interatrial shunt. Aortic Valve The aortic valve is mildly thickened. There is no aortic valvular stenosis. No aortic regurgitation is present. Mitral Valve The mitral valve leaflets are mildly thickened. No evidence of mitral valve stenosis. Trace mitral regurgitation. Tricuspid Valve The tricuspid valve leaflets are thin and pliable. Trace tricuspid rotation. There is insufficient TR jet to estimate RVSP. Pulmonic Valve The pulmonary valve is normal in structure. Trace pulmonic regurgitation. Great Vessels The aortic root is normal in size. The ascending aorta is not well-visualized. IVC is normal in size and collapses >50% with inspiration. Pericardium There is no pericardial effusion. Other Information Study Quality: Fair Conclusion Normal biventricular systolic function. No significant valvular stenosis or regurgitation. Electronically signed by : Dana Wills MD 10/04/2023 00:38:04
== END 2023-10-01 23:59 | disposition home or self-care (01) ==
LOC: RT 07:41
PROVIDERS: PCP Family Medicine; Visit Provider Internal Medicine
DX: I10 Essential (primary) hypertension (principal); I25.10 Atherosclerotic heart disease of native coronary artery without angina pectoris; Z95.1 Presence of aortocoronary bypass graft
CPT/HCPCS: 93306

== ENCOUNTER 2023-11-02 09:37 | Outpatient (CLI) | payer MEDICARE, SELFPAY ==
[2023-11-02 10:14] LABS: Basophils # 0.1 K/mm3 (0-0.2); Basophils % 0.6 % (0.1-2.0); Eosinophils # 0.2 K/mm3 (0.0-0.4); Eosinophils % 3.3 % (0.1-12.0); Hematocrit 49.3 % (42.0-52.0); Hemoglobin 15.4 g/dL (14.1-18.0); Lymphocytes % 26.9 % (10-50); Mean Corpuscular HGB Conc 31.3 g/dL (31.8-35.4); Mean Corpuscular Hemoglobin 33.7 pg (27.0-31.2); Mean Corpuscular Volume 107.6 fl (80-94); Mean Platelet Volume 8.1 fl (7.4-10.4); Monocytes # 0.5 K/mm3 (0.1-1.0); Neutrophils # 4.5 K/mm3 (1.8-7.8); Neutrophils % 62.2 % (37.0-80.0); Platelet Count 213 K/mm3 (142-424); Red Blood Count 4.58 M/mm3 (4.60-6.20); Red Cell Distribution Width 13.9 % (11.5-17.5); White Blood Count 7.3 K/mm3 (4.8-10.8)
[2023-11-02 10:58] LABS: Alanine Aminotransferase 30 U/L (12-78); Albumin Level 4.4 g/dl (3.5-5.0); Alkaline Phosphatase 61 U/L (38-126); Anion Gap 15.2 mEq/L (5-15); Aspartate Amino Transferase 30 U/L (17-59); Bilirubin,Indirect 0.8 mg/dL (0.0-0.9); Bilirubin,Total 0.8 mg/dl (0.2-1.3); Bilirubin,Unconjugated 0.9 mg/dL (0.0-1.1); Blood Urea Nitrogen 19 mg/dl (9-20); Calcium 9.5 mg/dl (8.4-10.2); Carbon Dioxide 29 mmol/L (22.0-30.0); Chloride 99 mmol/L (98-107); Chol/HDL Ratio 4.9 (1-3.5); Cholesterol 202 mg/dl (140-200); Estimated Glomerular Filt Rate 60 ml/min (>60); GFR (African American) 72 ML/MIN (>60); Glucose 108 mg/dl (74-100); HDL Cholesterol 41 mg/dl (40-60); Magnesium 2.1 mg/dl (1.6-2.3); Potassium 4.2 mmoL/L (3.5-5.1); Sodium 139 mmol/L (136-145); Total Protein,Serum 7.1 g/dl (6.3-8.2); Triglycerides 233 mg/dl (30-150); VLDL Cholesterol 47 mg/dL (0-40)
[2023-11-02 11:10] LABS: Direct LDL Cholesterol 113.49 mg/dL (100-129)
[2023-11-02 11:16] LABS: Free T4 (Free Thyroxine) 1.19 ng/dl (0.78-2.19)
[2023-11-02 11:30] LABS: Thyroid Stimulating Hormone 1.91 uIU/mL (0.465-4.68)
== END 2023-11-02 23:59 | disposition home or self-care (01) ==
LOC: LAB 09:38
PROVIDERS: PCP Family Medicine; Visit Provider Physician Assistant
DX: E78.2 Mixed hyperlipidemia (principal); I10 Essential (primary) hypertension; Z95.0 Presence of cardiac pacemaker; K21.9 Gastro-esophageal reflux disease without esophagitis; Z95.1 Presence of aortocoronary bypass graft; I25.10 Atherosclerotic heart disease of native coronary artery without angina pectoris; Z87.891 Personal history of nicotine dependence
CPT/HCPCS: 36415; 80048; 80061; 80076; 83735; 84439; 84443; 85025

== ENCOUNTER 2023-11-13 13:51 | Outpatient (CLI) | payer MEDICARE, SELFPAY ==
[2023-11-13] MEDS: INCLISIRAN SODIUM 284 MG/1.5 ML SYRINGE SQ (14:03)
[2023-11-13 14:08] VITALS: BP 121/64; PULSE 59; RESP 18; O2SAT 97
== END 2023-11-13 14:08 | disposition home or self-care (01) ==
LOC: INF 13:52
PROVIDERS: PCP Family Medicine; Visit Provider Physician Assistant
DX: E78.5 Hyperlipidemia, unspecified (principal)
CPT/HCPCS: 96372; J1306

== ENCOUNTER 2024-02-15 10:49 | Outpatient (CLI) | payer MEDICARE, SELFPAY ==
[2024-02-15 11:23] LABS: Basophils % 0.6 % (0.1-2.0); Eosinophils # 0.2 K/mm3 (0.0-0.4); Eosinophils % 3.2 % (0.1-12.0); Hematocrit 49.7 % (42.0-52.0); Hemoglobin 15.8 g/dL (14.1-18.0); Lymphocytes # 1.8 K/mm3 (0.7-4.5); Mean Corpuscular HGB Conc 31.8 g/dL (31.8-35.4); Mean Corpuscular Hemoglobin 34.1 pg (27.0-31.2); Mean Corpuscular Volume 107.2 fl (80-94); Mean Platelet Volume 7.5 fl (7.4-10.4); Monocytes # 0.4 K/mm3 (0.1-1.0); Monocytes % 7.4 % (1.7-9.3); Neutrophils # 3.3 K/mm3 (1.8-7.8); Neutrophils % 57.8 % (37.0-80.0); Platelet Count 227 K/mm3 (142-424); Red Blood Count 4.64 M/mm3 (4.60-6.20); Red Cell Distribution Width 13.8 % (11.5-17.5); White Blood Count 5.8 K/mm3 (4.8-10.8)
[2024-02-15 11:43] LABS: Hemoglobin A1C 6.1 % (4.0-6.0)
[2024-02-15 12:00] LABS: Alanine Aminotransferase 36 U/L (12-78); Albumin Level 4.4 g/dl (3.5-5.0); Albumin/Globulin Ratio 1.8 (1.1-1.8); Alkaline Phosphatase 60 U/L (38-126); Anion Gap 10.2 mEq/L (5-15); Aspartate Amino Transferase 33 U/L (17-59); Blood Urea Nitrogen 19 mg/dl (9-20); Calcium 9.5 mg/dl (8.4-10.2); Carbon Dioxide 29 mmol/L (22.0-30.0); Chloride 102 mmol/L (98-107); Chol/HDL Ratio 5.6 (1-3.5); Cholesterol 236 mg/dl (140-200); Estimated Glomerular Filt Rate 55 ml/min (>60); GFR (African American) 66 ML/MIN (>60); Globulin 2.5 g/dL (1.3-3.2); Glucose 119 mg/dl (74-100); HDL Cholesterol 42 mg/dl (40-60); Potassium 4.2 mmoL/L (3.5-5.1); Sodium 137 mmol/L (136-145); Total Protein,Serum 6.9 g/dl (6.3-8.2); Triglycerides 272 mg/dl (30-150); VLDL Cholesterol 54 mg/dL (0-40)
[2024-02-15 12:02] LABS: Albumin Level 4.5 g/dl (3.5-5.0); Anion Gap 11.1 mEq/L (5-15); Blood Urea Nitrogen 19 mg/dl (9-20); Calcium 9.3 mg/dl (8.4-10.2); Carbon Dioxide 27 mmol/L (22.0-30.0); Chloride 103 mmol/L (98-107); Estimated Glomerular Filt Rate 55 ml/min (>60); GFR (African American) 66 ML/MIN (>60); Glucose 118 mg/dl (74-100); Phosphorous 3.3 mg/dl (2.5-4.5); Potassium 4.1 mmoL/L (3.5-5.1); Sodium 137 mmol/L (136-145); Uric Acid 5.5 mg/dl (3.5-8.5)
[2024-02-15 12:11] LABS: Direct LDL Cholesterol 136.77 mg/dL (100-129)
[2024-02-15 12:31] LABS: Thyroid Stimulating Hormone 2.15 uIU/mL (0.465-4.68)
== END 2024-02-15 23:59 | disposition home or self-care (01) ==
LOC: LAB 10:52
PROVIDERS: Internal Medicine Rheumatology; PCP Family Medicine; Visit Provider Family Medicine
DX: E11.9 Type 2 diabetes mellitus without complications (principal); Z79.899 Other long term (current) drug therapy; I10 Essential (primary) hypertension; E78.5 Hyperlipidemia, unspecified; E03.9 Hypothyroidism, unspecified; M1A.09X0 Idiopathic chronic gout, multiple sites, without tophus (tophi)
CPT/HCPCS: 36415; 80053; 80061; 80069; 83036; 84443; 84550; 85025

== ENCOUNTER 2024-04-29 14:37 | Outpatient (CLI) | payer MEDICARE, SELFPAY ==
[2024-04-29 15:09] LABS: Basophils # 0.1 K/mm3 (0-0.2); Basophils % 0.6 % (0.1-2.0); Eosinophils # 0.3 K/mm3 (0.0-0.4); Eosinophils % 3.7 % (0.1-12.0); Hematocrit 41.7 % (42.0-52.0); Hemoglobin 14.4 g/dL (14.1-18.0); Lymphocytes # 2.1 K/mm3 (0.7-4.5); Lymphocytes % 25.5 % (10-50); Mean Corpuscular HGB Conc 34.6 g/dL (31.8-35.4); Mean Corpuscular Volume 101.2 fl (80-94); Monocytes # 0.6 K/mm3 (0.1-1.0); Monocytes % 6.9 % (1.7-9.3); Neutrophils # 5.1 K/mm3 (1.8-7.8); Neutrophils % 63.3 % (37.0-80.0); Platelet Count 189 K/mm3 (142-424); Red Blood Count 4.12 M/mm3 (4.60-6.20); Red Cell Distribution Width 13.6 % (11.5-17.5)
[2024-04-29 15:33] LABS: Alanine Aminotransferase 28 U/L (12-78); Albumin Level 4.1 g/dl (3.5-5.0); Alkaline Phosphatase 62 U/L (38-126); Aspartate Amino Transferase 25 U/L (17-59); Bilirubin,Direct 0.5 mg/dl (0.0-0.4); Bilirubin,Indirect 0.6 mg/dL (0.0-0.9); Bilirubin,Total 1.1 mg/dl (0.2-1.3); Bilirubin,Unconjugated 0.6 mg/dL (0.0-1.1); Blood Urea Nitrogen 23 mg/dl (9-20); Calcium 9.3 mg/dl (8.4-10.2); Carbon Dioxide 29 mmol/L (22.0-30.0); Chloride 101 mmol/L (98-107); Chol/HDL Ratio 5.4 (1-3.5); Cholesterol 199 mg/dl (140-200); Estimated Glomerular Filt Rate 50 ml/min (>60); GFR (African American) 61 ML/MIN (>60); Glucose 83 mg/dl (74-100); HDL Cholesterol 37 mg/dl (40-60); Magnesium 1.8 mg/dl (1.6-2.3); Sodium 137 mmol/L (136-145); Total Protein,Serum 6.4 g/dl (6.3-8.2); Triglycerides 216 mg/dl (30-150); VLDL Cholesterol 43 mg/dL (0-40)
[2024-04-29 15:44] LABS: Direct LDL Cholesterol 129.41 mg/dL (100-129)
[2024-04-29 16:20] LABS: Anion Gap 11.2 mEq/L (5-15); Potassium 4.2 mmoL/L (3.5-5.1)
[2024-04-29 16:41] LABS: Free T4 (Free Thyroxine) 1.31 ng/dl (0.78-2.19)
[2024-04-29 16:55] LABS: Thyroid Stimulating Hormone 2.38 uIU/mL (0.465-4.68)
== END 2024-04-29 23:59 | disposition home or self-care (01) ==
LOC: LAB 14:38
PROVIDERS: PCP Family Medicine; Visit Provider Physician Assistant
DX: I50.20 Unspecified systolic (congestive) heart failure (principal); E78.2 Mixed hyperlipidemia; I10 Essential (primary) hypertension; Z95.0 Presence of cardiac pacemaker; K21.9 Gastro-esophageal reflux disease without esophagitis; R94.31 Abnormal electrocardiogram [ECG] [EKG]; Z95.1 Presence of aortocoronary bypass graft; I25.10 Atherosclerotic heart disease of native coronary artery without angina pectoris
CPT/HCPCS: 36415; 80048; 80061; 80076; 83735; 84439; 84443; 85025

== ENCOUNTER 2024-05-29 09:27 | Outpatient (CLI) | payer MEDICARE, SELFPAY ==
[2024-05-29 10:58] LABS: Alanine Aminotransferase 29 U/L (12-78); Albumin Level 4.3 g/dl (3.5-5.0); Alkaline Phosphatase 43 U/L (38-126); Aspartate Amino Transferase 48 U/L (17-59); Bilirubin,Direct 0.6 mg/dl (0.0-0.4); Bilirubin,Indirect 0.3 mg/dL (0.0-0.9); Bilirubin,Total 0.9 mg/dl (0.2-1.3); Bilirubin,Unconjugated 0.3 mg/dL (0.0-1.1); Chol/HDL Ratio 5.2 (1-3.5); Cholesterol 172 mg/dl (140-200); HDL Cholesterol 33 mg/dl (40-60); Total Protein,Serum 6.6 g/dl (6.3-8.2); Triglycerides 137 mg/dl (30-150); VLDL Cholesterol 27 mg/dL (0-40)
[2024-05-29 11:09] LABS: Direct LDL Cholesterol 107.95 mg/dL (100-129)
== END 2024-05-29 23:59 | disposition home or self-care (01) ==
PROVIDERS: PCP Family Medicine; Visit Provider Internal Medicine
DX: E78.5 Hyperlipidemia, unspecified (principal); I10 Essential (primary) hypertension; Z87.891 Personal history of nicotine dependence
CPT/HCPCS: 36415; 80061; 80076

== ENCOUNTER 2024-05-30 13:48 | Outpatient (CLI) | payer MEDICARE, SELFPAY ==
[2024-05-30] MEDS: INCLISIRAN SODIUM 284 MG/1.5 ML SYRINGE SUBCUT (14:00)
[2024-05-30 14:02] VITALS: BP 131/66; PULSE 71; RESP 18; O2SAT 99
== END 2024-05-30 14:02 | disposition home or self-care (01) ==
LOC: INF 13:49
PROVIDERS: PCP Family Medicine; Visit Provider Physician Assistant
DX: E78.5 Hyperlipidemia, unspecified (principal)
CPT/HCPCS: 96372; J1306

== ENCOUNTER 2024-06-19 14:23 | Outpatient (CLI) | payer MEDICARE, SELFPAY ==
[2024-06-19 15:18] LABS: Cholesterol 193 mg/dl (140-200); HDL Cholesterol 32 mg/dl (40-60); Triglycerides 280 mg/dl (30-150); VLDL Cholesterol 56 mg/dL (0-40)
[2024-06-19 15:33] LABS: Direct LDL Cholesterol 123.25 mg/dL (100-129)
== END 2024-06-19 23:59 | disposition home or self-care (01) ==
LOC: LAB 14:25
PROVIDERS: PCP Family Medicine; Visit Provider Internal Medicine
DX: R06.09 Other forms of dyspnea (principal); R07.89 Other chest pain
CPT/HCPCS: 36415; 80061

== ENCOUNTER 2024-08-14 11:40 | Outpatient (CLI) | payer MEDICARE, SELFPAY ==
--- NOTE | 2024-08-14 11:45 | XR_ITS ---
FINAL REPORT CLINICAL HISTORY: PAIN, denies injury, no prior surgeries COMPARISON: None FINDINGS: RIGHT HIP Two views of the right hip with an AP view of the pelvis demonstrate no acute fracture or dislocation. There are mild degenerative changes. Small bone island is noted in the intertrochanteric right femoral neck. No soft tissue abnormality is seen. IMPRESSION: Mild degenerative changes. Reviewed, Interpreted and Dictated by David Zamorano MD Transcribed by Bhumi Mccarthy Authenticated and [facility]
== END 2024-08-14 23:59 | disposition home or self-care (01) ==
PROVIDERS: PCP Family Medicine; Visit Provider Family Medicine
DX: M25.551 Pain in right hip (principal)
CPT/HCPCS: 73502

== ENCOUNTER 2024-12-03 13:18 | Outpatient (CLI) | payer MEDICARE, SELFPAY ==
--- OUTSIDE RECORDS SUMMARY | 2024-09-09 10:15 | XMS_ITS ---
Author Organization [facility] Address [address] [facility] [address] [id number] Care Team Providers Care Separator Operator Shellfish Meats Name Role Phone Jaelyn Pacheco Primary Care Provider [phone] Allergies No Known Allergies REASON FOR VISIT Continued Pain Medications Medication SIG (Take, Route, Frequency, Duration) Notes Start Date End Date Status Leqvio 284 MG/1.5ML as directed Subcutaneous Active Lisinopril 5 MG 1 tab(s) orally twic e a day Active Ozempic (1 MG/DOSE) 4 MG/3ML inject 1 mg Subcutaneous once a week 05/29/2024 Not-Taking Ozempic (1 MG/DOSE) 4 MG/3ML 1 mg Subcutaneous once a week; Duration: 30 days 09/05/2024 Active Farxiga 10 MG 1 tablet Orally Once a day Active Zetia 10 MG TAKE 1 TABLET EVERY DAY Active Levothyroxine Sodium 50 MCG 1 tab(s) orally once a day Active Nitroglycerin 0.4 MG 1 tab(s) sublingual ly every 5 minutes x 3 Active Bisoprolol Fumarate 10 MG 1 tab(s) orall y once a day Active Aspirin Adult Low Dose 81 MG 1 tab(s) orally QD Active Levothyroxine Sodium 50 MCG TAKE 1 TABLET EVERY DAY; Duration: [address] 500 MG TAKE 1 TABLET TWICE DAILY; Duration: 90 Active Furosemide 40 MG TAKE 1 TABLET EVERY DAY; Duration: 90 Active Lisinopril 5 MG 1 tab(s) orally twic e a day; Duration: 90 days Active traMADol-Acetaminophen 37.5-325 MG 1 tab(s) orally qid prn 06/09/2024 Acti ve Triamcinolone Acetonide 0.1 % 1 application Externally Two times a day 02/14/2024 Active Aquaphor Adv Therapy Feet - as directed Externally Two times a day 02/12/2024 Active Pantoprazole Sodium 40 MG TAKE 1 TABLET EVERY DAY; Duration: 90 Active Potassium Chloride ER 10 MEQ 1 tab(s) orally once a day Active Ranolazine ER 500 MG 1 tablet Orally Twi ce a day; Duration: 30 day(s) Active Allopurinol 300 MG 1 tablet Orally Once a day; Duration: 30 day(s) Active predniSONE 10 MG 1 tab tid x 5 days t hen 1 tab bid x 5 days then 1 tab qd x 5 days Orally 09/09/2024 Active Isosorbide Mononitrate ER 30 MG 1 tablet in the morning Orally Once a day; Duration: 30 day(s) Active Vital Signs Blood pressure systolic 118 mm Hg 09/10/19 25 Blood pressure diastolic 68 mm Hg 025 Heart Rate 60 /min 09/09/2024 Height 70.50 in 09/09/2024 Weight 271.0 lbs 09/09/2024 BMI 38.33 kg/m2 09/09/2024 Encounters Encounter Location Date Provider Diagnosis [facility] [address] [facility] [address] [place] [id number] 09/09/2024 Jaelyn Pacheco Bilateral hip pain M25.551 and BMI 38.0-38.9,adult Z68.38 Assessments Encounter Date Diagnosis (ICD Code) Assessment Notes Treatment Notes Treatment Clinical Notes Section Notes 09/09/2024 Bilateral hip pain (ICD-10 - M25.551) If symptoms persist or recur, will consider MRI. ---Suspect spinal stenosis 09/09/2024 BMI 38.0-38.9,adul t (ICD-10 - Z68.38) ---Suspect spinal stenosis Plan Of Treatment Medication Medication Name Sig Start Date Stop Date Notes predniSONE 10 MG 1 tab tid x 5 days t hen 1 tab bid x 5 days then 1 tab qd x 5 days Orally 09/09/2024 Treatment Notes Assessment Notes Bilateral hip pain If symptoms persist or recur, will consider MRI. Next Appt Details Follow Up: 2 Weeks,prn, Reas on: Provider Name:Jaelyn Billingsley, 02/12/2025 10:00:00 AM, [address] [facility], [address], [place], [place], [id number], Progress Notes * TY ANTONY LDOB:[birth year] (69 yo M)Acc No.[id number]:09/09/2024 Progress Notes Patient: TY GLORIA Provider: Jaelyn Pacheco M.D. :1955 A ge:68 Y S ex:Male Date:09/09/2024 Address:[address] [place], [place] [phone] Subjective: * Chief Complaints: * 1 . Continued Pain. * HPI: H ip/Thigh: He returns with ongoing complaints of, now, bilateral hip pain and on further questioning notes that the pain starts in the lower back and radiates to the SI areas bilaterally and into the buttocks. Pain is the worst in the morning and tends to gradually get better with movement through the day. His symptoms completely resolved after the Medrol Dosepak but soon recurred. * ROS: O PTHALMOLOGY: Negative for d enies vision issues. * Medical History: C oronary Artery Disease, Myocardial Infarction, Tobacco abuse, quit in 2003 (50 pack year history), Hypertension, Hyperlipidemia, Hypothyroidism, Gout, Sleep apnea, Chronic neck pain, Obesity, GERD, OA, Statin intolerance, SSS - s/p PPM, COLOGUARD: Negative 01/2019; 06/2023, CKD 3a. * Surgical History: C ABGx5 2003, colonoscopy 07/2007, heart cath 05/2008, cataract removed from right eye 10/01/18, cataract removed from left eye 10/08/18, heart cath-Dr Moreira 10/2018, cardiac stent-Dr Whitfield , pacemaker placed-Dr Whitfield 12/2019, Pacemaker lead replacement -Dr. Whitfield 03/2020. * Hospitalization/Major Diagno stic Procedure: H MH for heart rate low 02-03, [facility]-chest pain 12/23/12. * Family History: F ather: , diagnosed with Heart Disease. M other: alive, diagnosed with Diabetes.?2 son(s) . . Siblings with heart disease. * Social History: C URRENT TOBACCO USE S moking Status: Patient does NOT smoke. C affeine: no. Exercise: yes. Home smoke detector use: yes. Marital Status: . Past smoking status: no, Smoking status: Does not smoke. * Medications: T aking Allopurinol 300 MG Tablet 1 tablet Orally Once a day , Taking Isosorbide Mononitrate ER 30 MG Tablet Extended Release 24 Hour 1 tablet in the morning Orally Once a day , Taking Ranolazine ER 500 MG Tablet Extended Release 12 Hour 1 tablet Orally Twice a day , Taking Potassium Chloride ER 10 MEQ Capsule Extended Release 1 tab(s) orally once a day , Taking Pantoprazole Sodium 40 MG Tablet Delayed Release TAKE 1 TABLET EVERY DAY , Taking Aquaphor Adv Therapy Feet - Ointment as directed Externally Two times a day , Taking Triamcinolone Acetonide 0.1 % Cream 1 application Externally Two times a day , Taking Levothyroxine Sodium 50 MCG Tablet TAKE 1 TABLET EVERY DAY , Taking Lisinopril 5 MG Tablet 1 tab(s) orally twice a day , Taking Furosemide 40 MG Tablet TAKE 1 TABLET EVERY DAY , Taking Naproxen DR 500 MG Tablet Delayed Release TAKE 1 TABLET TWICE DAILY , Taking traMADol-Acetaminophen 37.5- 325 MG Tablet 1 tab(s) orally qid prn , Taking Aspirin Adult Low Dose 81 MG Tablet Delayed Release 1 tab(s) orally QD , Taking Bisoprolol Fumarate 10 MG Tablet 1 tab(s) orally once a day , Taking Nitroglycerin 0.4 MG Tablet Sublingual 1 tab(s) sublingually every 5 minutes x 3 , Taking Levothyroxine Sodium 50 MCG Tablet 1 tab(s) orally once a day , Taking Zetia 10 MG Tablet TAKE 1 TABLET EVERY DAY , Taking Lisinopril 5 MG Tablet 1 tab(s) orally twice a day , Taking Leqvio 284 MG/1.5ML Solution Prefilled Syringe as directed Subcutaneous , Taking Farxiga 10 MG Tablet 1 tablet Orally Once a day , Taking Ozempic (1 MG/DOSE) 4 MG/3ML Solution Pen-injector 1 mg Subcutaneous once a week , Not-Taking Ozempic (1 MG/DOSE) 4 MG/3ML Solution Pen-injector inject 1 mg Subcutaneous once a week , Medication List reviewed and reconciled with the patient * Allergies: N .K.D.A. Objective: * Vitals: W t: 271.0, Temp: 97.9, BP: 118/68, HR: 60, Nurse: mmcecilia, Ht: 70.50, BMI:38.33. * Examination: G eneral Examination: Back: D ecreased normal lumbar lordosis. No bony tenderness of the lumbar spine. Decreased range of motion on full flexion due to pain.. Assessment: * Assessment: 1. B ilateral hip pain - M25.551 (Primary) 2 . B VA 38.0-38.9,adult - Z68.38 ---Suspect spinal stenosis. Plan: * Treatment: * Procedure Codes: G 2211 Complex e/m visit add on, 3074F SYST BP LT 130 MM HG, 3078F DIAST BP < 80 MM HG * Follow Up: 2 Weeks,prn * Images: Billing Information: * Visit Code: 58094 Office Visit, Est Pt., Level 3. * Procedure Codes: G2211 Complex e/m visit add on. 3074F SYST BP LT 130 MM HG. 3078F DIAST BP < 80 MM HG. * Electronic signature of Jaelyn Pacheco MD on 12/03/2024 at 01:23 PM EDT Sign off status: Pending * Provider: Jaelyn Pacheco M.D. Date: 0 09/09/2024 Generated for Roman kraus/Nico/Jaymeitting on: 0 12/03/2024 01:23 PM EDT History and Physical Notes * HPI (History of Present Illness) Category Sub-Category Detail Notes Category Not es Hip/Thigh His symptoms co mpletely resolved after the Medrol Dosepak but soon recurred. Examination Category Sub-Category Detail Notes Category Not es General Examination Back: Decreased no rmal lumbar lordosis. No bony tenderness of the lumbar spine. Decreased range of motion on full flexion due to pain.
--- OUTSIDE RECORDS SUMMARY | 2024-09-23 09:30 | XMS_ITS ---
Author Organization [facility] Address [address] [facility] [address] [phone] Care Team Providers Care Orthopedic Tech Name Role Phone Jaelyn Pacheco Primary Care Provider [phone] Allergies No Known Allergies REASON FOR VISIT [...] 09/23/2024 Encounters Encounter Location Date Provider Diagnosis [facility] [address] [facility] [address] [facility] [address] [place] [phone] 09/23/2024 Jaelyn Monaco Tara Type 2 diabetes mellitus without complication, unspecified whether dental laboratory supervisor insulin use E11.9 Assessments Encounter Date Diagnosis (ICD Code) Assessment Notes Treatment Notes Treatment Clinical Notes Section Notes 09/23/2024 Type 2 diabetes mellitus without complication, unspecified whether dental laboratory supervisor insulin use (ICD-10 - E11.9) He will [...] diabetes mellitus wit hout complication, unspecified whether dental laboratory supervisor insulin use He will remain off work this week. Next Appt Details Follow Up: prn, Reason: Provider Name:Jaelyn Billingsley, 02/12/2025 10:00:00 AM, [address] [facility], [address], [place], [phone], Progress Notes * TY ANTONY LDOB:[birth year] (69 yo M)Acc No.[id number]:09/23/2024 Progress Notes Patient: TY GLORIA Provider: Jaelyn Pacheco M.D. :1955 A ge:68 Y S ex:Male Date:09/23/2024 Address:[address] [place], [place] [phone] Subjective: * Chief Complaints: * 1 . [...] Procedure: H for heart rate low 02-03, [facility]-chest pain 12/23/12. * Family History: F [...] 2 diabetes mellitus without complication, unspecified whether care home insulin use - E11.9 (Primary) Plan: * Treatment: * Procedure Codes: G 2211 Complex e/m visit add on, G8752 MOST RECENT SYSTOLIC BP < 140MM HG, G8754 MOST RECENT DIASTOLIC BP < 90MM HG, 3044F HG A1C LEVEL LT 7.0% * Follow Up: p rn * Images: Billing Information: * Visit Code: 01441 Office Visit, Est Pt., Level 3. * [...] 09/23/2024 Generated for Roman kraus/Nico/Jaymeitting on: 0 12/03/2024 01:23 PM EDT
--- OUTSIDE RECORDS SUMMARY | 2024-11-12 14:30 | XMS_ITS | Encounter Summary ---
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); Encounter for long-term (current) use of medications; Localized osteoarthritis of left shoulder Social History Tobacco Use Types Packs/Day Years Used Date Smoking Tobacco: Former Cigarettes Smokeless Tobacco: Never Sex and Gender Information Value Date Recorded Sex Assigned at Not on file Legal Sex Male 11:32 AM EST Gender Identity Not on file Sexual Orientation Not on file documented as of this encounter Last Filed Vital Signs Vital Sign Reading Time Taken Comments Blood Pressure 142/68 11/12/2024 2:46 PM EDT Pulse - - Temperature 36.7 C (98.1 F) 11/12/2024 2:46 PM EDT Respiratory Rate - - Oxygen Saturation - - Inhaled Oxygen Concentration - - Weight 127.5 kg (281 lb) 11/12/2024 2:46 PM EDT Height 182.9 cm (6') 11/12/2024 2:46 PM EDT Body Mass Index 38.11 11/12/2024 2:46 PM EDT documented in this encounter Ordered Prescriptions Prescription Sig Dispense Quantity Refills Last Filled Start Date End Date allopurinoL (ZYLOPRIM) 300 mg Oral TabletIndications:I diopathic chronic gout of multiple sites without tophus Take 1 Tablet by mouth daily. 90 Tablet 3 11/12/2024 documented in this encounter Progress Notes * Larisa Echevarria MD - 11/12/2024 2:30 PM EDT Images from the original note were not included. Subjective Subjective: Patient ID: Scott Scott is a 69 y.o. male. Chief Complaint Patient presents with Gout HPI: Scott Scott is a 69 y.o.male Patient is here for f/u of gout and joint pain. Patient denies any gout flares. Patient is on allopurinol 300 mg daily. Patient discontinued naproxen. Uses tramadol as needed for pain. No red or swollen joints. (He had been taking naproxen twice a day if he had neck and low back pain. Once pain resolved he goes back to taking it one a day.) The pain / function / disease activity questionnaire (located in the chart) was filled out by the patient and reviewed with me. Refer to flowsheets for full RAPID3. Disease Activity on RAPID 3 = 0.3/10 (stable) REVIEW OF SYSTEMS The patient denies fever, weight loss, rash, photosensitivity, Raynaud's phenomenon, dry eyes, dry mouth, oral ulcers, sore throat, heartburn, dysphagia, visual changes, nausea, vomiting, abdominal pain, melena, chest pain, cough, shortness of breath, hemoptysis, hematuria, dysuria, numbness, and tingling. See HPI for further details. Review of systems otherwise negative. Past pertinent patient has had pacemaker placement in 2019. Before that he was significantly tired. Patient also has right 10th rib fracture from x-rays done 12/2016. Chest x-ray with no acute findings done at the same time. Patient reports he had a renal ultrasound which did not show any stones. Records of this not available for review. Right shoulder without pain and good range of motion.. He has had right bicipital tendon rupture. No pain over this area. Past Medical History: Diagnosis Date CAD (coronary artery disease) Depression Diabetes mellitus (HCC) Heart disease Hypertension Osteoarthritis Social History Tobacco Use Smoking status: Former Types: Cigarettes Smokeless tobacco: Never Substance Use Topics Alcohol use: Not on file History reviewed. No pertinent family history. No Known Allergies Outpatient Medications Marked as Taking for the 11/12/24 encounter (Office Visit) with Larisa Echevarria MD Medication Sig Dispense Refill allopurinoL (ZYLOPRIM) 300 mg Oral Tablet Take 1 Tablet by mouth daily. 90 Tablet 3 [DISCONTINUED] allopurinoL (ZYLOPRIM) 300 mg Oral Tablet Take 1 Tablet by mouth daily. 90 Tablet 3 aspirin 81 mg Oral Tablet, Delayed Release (E.C.) 1 tab(s) orally QD bisoprolol (ZEBETA) 10 mg Oral Tablet Take 10 mg by mouth daily. EC-NAPROXEN 500 mg Oral Tablet, Delayed Release (E.C.) Take 500 mg by mouth 2 times daily as needed. fUROsemide (LASIX) 40 mg Oral Tablet Take 40 mg by mouth once. isosorbide mononitrate (IMDUR) 30 mg Oral Tablet Sustained Release 24 hr Take 30 mg by mouth daily. LEVOthyroxine (SYNTHROID) 50 mcg Oral Tablet Take 50 mcg by mouth daily. lisinopriL (PRINIVIL;ZESTRIL) 5 mg Oral Tablet Take 5 mg by mouth 2 times daily. pantoprazole (PROTONIX) 40 mg Oral Tablet, Delayed Release (E.C.) Take 40 mg by mouth daily. potassium chloride (KLOR-CON) 10 mEq Oral Tablet Sustained Release Take 10 mEq by mouth once. ranolazine (RANEXA) 500 mg Oral Tablet Sustained Release 12 hr Take 500 mg by mouth 2 times daily. REPATHA SYRINGE 140 mg/mL SubQ Syringe Inject 140 mg under the skin every 14 days. traMADol-acetaminophen (ULTRACET) 37.5-325 mg Oral Tablet as needed. Objective: Vital Signs: BP 142/68 (BP Location: Left arm, Patient Position: Sitting) Temp 98.1 ??F (36.7 ??C) (Forehead) Ht 6' (1.829 m) Wt 281 lb (127.5 kg) BMI 38.11 kg/m?? Body mass index is 38.11 kg/m??. Physical Exam Constitutional: no apparent distress EYE: No conjunctival erythema Lung: Normal respiratory effort. No wheezing. SKIN: no visible rash MSK: Bilateral shoulders without erythema, warmth or swelling. Right shoulder FROM without tenderness. Patient has ruptured bicipital tendon with biceps muscle bunched up at lower part of arm. Nontender. No synovitis bilateral feet .No tenderness involving Achilles insertion. Gait normal. Assessment and Plan: Diagnoses and all orders for this visit: Idiopathic chronic gout of multiple sites without tophus Overview: On allopurinol . No flares. Disease with excellent control. Continue with current dose of allopurinol. Orders: - RENAL FUNCTION PANEL-QUEST; Future - URIC ACID-QUEST; Future - allopurinoL (ZYLOPRIM) 300 mg Oral Tablet; Take 1 Tablet by mouth daily. Dispense: 90 Tablet; Refill: 3 Encounter for long-term (current) use of medications Overview: Allopurinol risks and benefits discussed in detail, including GI upset, rare bone marrow suppression and liver damage, allopurinol hypersensitivity syndrome with fever and rash and rarely Bowman-Ubaldo syndrome, acutely introducing gout attacks. Patient expressed understanding. Labs 07/2016 uric acid 7.8 mg/dL. Normal creatinine. Localized osteoarthritis of left shoulder Overview: : Resolved Assessment & Plan: Patient responds to intra-articular steroid injection. Injected left shoulder with corticosteroids 03/03/21. X-ray left shoulder obtained in the office 01/08/17 and reviewed by me with patient on the same day.It revealed a.c. joint osteoarthritis and mild glenohumeral osteoarthritis. No chondrocalcinosis. -Physical therapy was prescribed for left shoulder. Return in about 10 months (around 09/24/2025). * Larisa Echevarria MD - 11/10/2024 9:48 PM EDTAssociated Problem(s): Localized osteoarthritis of left shoulder Patient responds to intra-articular steroid injection. Injected left shoulder with corticosteroids 03/03/21. X-ray left shoulder obtained in the office 01/08/17 and reviewed by me with patient on the same day.It revealed a.c. joint osteoarthritis and mild glenohumeral osteoarthritis. No chondrocalcinosis. -Physical therapy was prescribed for left shoulder. documented in this encounter Plan of Treatment Upcoming Encounters Date Type Department Care Team (Late st Contact Info) Description 09/24/2025 11:30 AM EDT Office Visit [facility] [address] [place] [address] Larisa Echevarria MD [address] [place] [address] Scheduled Orders Name Type Priority Associated Diagnoses Orde r Schedule RENAL FUNCTION PANEL-QUEST Lab Routine Idiopathic chronic gout of multiple sites without tophus 1 Occurrences starting 11/12/2024 until 11/10/2025 URIC ACID-QUEST Lab Routine Idiopathic chronic gout of multiple sites without tophus 1 Occurrences starting 11/12/2024 until 11/10/2025 documented as of this encounter Visit Diagnoses Diagnosis Idiopathic chronic gout of multiple sites without tophus- Primary 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 Reorder 01/24/2024 11/12/2024 documented as of this encounter Historical Medications * This list may reflect changes made after this encounter. REPATHA SYRINGE 140 mg/mL SubQ Syringe Inject 140 mg under the skin every 14 days. 09/22/2024 added in this encounter Care Teams Senior Living Advisor Relationship Specialty Start Date End Date Larisa Echevarria MD [address] [place] [address] Internal Medicine-Rheumatology 02/19/23 documented as of this encounter
--- OUTSIDE RECORDS SUMMARY | 2024-12-02 12:45 | XMS_ITS ---
[facility] [address] [facility] [address] [id number] Care Team Providers Care Blueprint Clerk Name Role Phone Jaelyn Pacheco Primary Care Provider Allergies No Known Allergies REASON FOR VISIT Issues w/ Hips Medications [...] 12/02/2024 Encounters Encounter Location Date [facility] [address] [facility] [address] [place] [phone] 12/02/2024 Jaelyn Pacheco Primary generalized (osteo)arthritis M15.0 [...] likely need advanced imaging for definitive diagnosis. Pending Test Test Name Order Date X ray : Spine, lumbosacral 12/02/2024 Next Appt Details Follow Up: via phone to repo rt test results, Reason: Provider Name:Jaelyn Monaco [place] et, 02/12/2025 10:00:00 AM, [address], [address], [place], [place], [id number], Progress Notes * TY ANTONY LDOB:[birth year] (69 yo M)Acc No.[id number]:12/02/2024 Progress Notes Patient: TY GLORIA Provider: Jaelyn Pacheco M.D. :1955 A ge:69 Y S ex:Male Date:12/02/2024 Address:[address] [place], [place] [phone] Subjective: * Chief Complaints: * 1 . [...] stic Procedure: H for heart rate low -, [facility]-chest pain 12/23/12. * Family History: F [...] I maging: X ray : Spine, lumbosacral * Follow Up: v ia phone to report test results * Images: Billing Information: * Visit Code: 44681 Office Visit, Est Pt., Level 4. * Procedure Codes: * Electronic signature of Jaelyn Pacheco MD on 12/03/2024 at 01:24 PM EDT Sign off status: Pending * Provider: Jaelyn Pacheco M.D. Date: 12/02/2024 Generated for Roman kraus/Nico/Seamus on: 12/03/2024 01:24 PM EDT History and Physical Notes * [...]
--- NOTE | 2024-12-03 13:22 | XR_ITS ---
FINAL REPORT TECHNIQUE: 6 views CLINICAL HISTORY: Pain x4 months; leg weakness COMPARISON: None FINDINGS: LUMBAR SPINE 6 VIEWS At the T12-L1 level there are moderate anterior osteophytes present. The lumbar vertebral bodies are well aligned. No significant disc space narrowing is identified. There is moderate facet sclerosis in the lower lumbar spine. Mild abdominal aorta vascular calcification is present. IMPRESSION: Mild degenerative change without acute bony abnormality. Reviewed, Interpreted and Dictated by Alfredo Dominguez MD Transcribed by Mimi Whitmore Authenticated and . [facility]
--- OUTSIDE RECORDS SUMMARY | 2024-12-03 13:24 | XMS_ITS | Encounter Summary ---
Author Organization [facility] Address [address] [place] [address] Care Team Providers Care Bucket Turner Name Role Phone Larisa Echevarria MD Unavailable Encounter Details Date Type Department Care Team (Late st Contact Info) Description 11/12/2024 Orders Only [facility] [address] [place] [address] Larisa Echevarria MD [address] [place] [address] Social History Tobacco Use Types Packs/Day Years Used Date Smoking Tobacco: Former Cigarettes Smokeless Tobacco: Never Sex and Gender Information Value Date Recorded Sex Assigned at Not on file Legal Sex Male 11:32 AM EST Gender Identity Not on file Sexual Orientation Not on file documented as of this encounter Plan of Treatment Upcoming Encounters Date Type Department Care Team (Late st Contact Info) Description 09/24/2025 11:30 AM EDT [facility] [address] [place] [address] Larisa Echevarria MD [address] [place] [address] documented as of this encounter Procedures Procedure Name Priority Date/Time Associated Diagnosis Comments URIC ACID-QUEST Routine 11/12/2024 2:34 PM EDT RENAL FUNCTION PANEL-QUEST Routine 11/12/2024 2:34 PM EDT documented in this encounter Results * (ABNORMAL) RENAL FUNCTION PANEL-QUEST (11/12/2024 2:34 PM EDT) Glucose 92 65 - 99 mg/dL [facility] Comment: Fasting reference interval BUN 20 7 - 25 mg/dL [facility] Creatinine 1.33(H) 0.70 - 1.28 mg/dL [facility] EGFR 57(L) > OR = 60 mL/min/1.7 3m2 [facility] BUN/Creatinine Ratio 15 6 - 22 (calc) [facility] Sodium 136 135 - 146 mmol/L [facility] Potassium 4.4 3.5 - 5.3 mmol/L [facility] Chloride 99 98 - 110 mmol/L [facility] CO2 27 20 - 32 mmol/L [facility] Calcium 9.2 8.6 - 10.3 mg/dL [facility] Phosphorus 4.5(H) 2.1 - 4.3 mg/dL [facility] Albumin 4.2 3.6 - 5.1 g/dL [facility] 11/12/2024 2:34 PM EDT 11/12/2024 2:35 PM EDT us Larisa Echevarria MD [facility]-CHEMISTRY ORDERABLES Fi nal Result [facility] [address] [place] [address] * URIC ACID-QUEST (11/12/2024 2:34 PM EDT) Uric Acid 6.0 4.0 - 8.0 mg/dL [facility] Comment: Therapeutic target for gout patients: <6.0 mg/dL 11/12/2024 2:34 PM EDT 11/12/2024 2:35 PM EDT us Larisa Echevarria MD [facility]-CHEMISTRY ORDERABLES Fi nal Result QUE[facility] [address] [place] [address] documented in this encounter Visit Diagnoses Not on filedocumented in this encounter Care Teams Bucket Turner Relationship Specialty Start Date End Date Larisa Echevarria MD [address] [place] [address] Internal Medicine-Rheumatology 02/19/23 documented as of this encounter
--- OUTSIDE RECORDS SUMMARY | 2024-12-03 13:24 | XMS_ITS | Clinical Summary ---
Author Organization [facility] Address [address] [place] [address] Care Team Providers Care Watch Train Assembler Name Role Phone Estuardo Pacheco MD Primary Care Provider [phone]- [phone] Social History Tobacco Use Types Packs/Day Years Used Date Smoking Tobacco: Never Assessed Sex and Gender Information Value Date Recorded Sex Assigned at Not on file Legal Sex Male 7:50 PM EDT Gender Identity Not on file Sexual Orientation Not on file Plan of Treatment Health Maintenance Due Date Last Done Comments [facility]-Depression Screening 1955 [facility]-Diabetes: Hemoglobin A1C 1955 [facility]-Hepatitis C Screening 1955 [facility]Medicare Annual Wellness (AWV) 1955 [facility]-Infant/Child/Adol SDOH Screenings 1955 Diabetes: Dental Exam 10/10/1963 [facility]- SDOH Screenings 10/10/1971 [facility]-Adult SDOH Screenings 10/10/1971 CT Colonography 1998 Colonoscopy 1998 FIT-DNA 1998 FIT 1998 FOBT 1998 Sigmoidoscopy 1998 [facility]-Colorectal Cancer Screening 1998 [facility]-Zoster Vaccines (1 of 2) 10/10/2003 [id number] Vaccine ( season) 2024 03/17/2022, 03/30/2021, 08/19/2020, Additional history exists [facility]-Influenza Vaccine (#1) 01/26/202502/07, 02/04/2021, 02/02/2017 [facility]-DTaP,Tdap,and Td Vaccines (2 - Td or Tdap) 02/02/2028 02/01/2018 [facility]-RSV Vaccine: 60+ Years or (1 - 1-dose 75+ series) 2028 [facility]-Pneumococcal Vaccine: 50+ Years Completed 08/14/2023, 02/04/2021 HPV Vaccines Aged Out No longer eligi ble based on patient's age to complete this topic [facility]-HIB Vaccines Aged Out No longer e ligible based on patient's age to complete this topic [facility]-Hepatitis A Vaccines Aged Out No longer eligible based on patient's age to complete this topic [facility]-IPV Vaccines Aged Out No longer e ligible based on patient's age to complete this topic [facility]-Rotavirus Vaccines Aged Out No lo nger eligible based on patient's age to complete this topic Insurance [employer] Care Teams Watch Train Assembler Relationship Specialty Start Date End Date Estuardo Pacheco MD [address] [facility] [address] [place] [id number] PCP - General 10/08/20
--- OUTSIDE RECORDS SUMMARY | 2024-12-03 13:24 | XMS_ITS | Patient Health Record ---
Author Organization [facility] Address [address] [id number] Care Team Providers Care Electrical System Specialist Name Role Phone Jaelyn Pacheco Primary Care Provider Fransisco Hoyos Unavailable [phone] Allergies No Known Allergies Results Component Value Reference Range Notes CBC Venipuncture (in house) Reviewed date:08/19/2024 08:51:33 AM Interpretation: Performing Lab: Notes/Report: wbc 6.2 3.5 - 10 lymph 29.1 15 - 50 mid 5.4 2 - 15 gran 65.5 35 - 80 rbc 4.33 3.5 - 5.5 hgb 14.7 11.5 - 16.5 hct 43.7 35 - 55 mcv 101.0 75 - 100 mch 34.0 25 - 35 mchc 33.6 31 - 38 platlet 230 100 - 400 Glycohemoglobin A1c (in hous e) Reviewed date:08/19/2024 08:51:33 AM Interpretation:5.5% Performing Lab: Notes/Report: 5.5% glycohemoglobin 5.5% 5 - 6.5 % P-Comprehensive Metabolic Pa fito (CMP) Reviewed date:08/19/2024 08:51:33 AM Interpretation: Performing Lab: Notes/Report: Test performed by [facility] , [address], [place] [address] Brad Sun MD, Business Process Analyst CLIA: [id number] Sodium 140 135-145 mmol/L Potassium 4.7 3.5-5.3 mmol/L Chloride 102 97-108 mmol/L CO2 27 22-32 mmol/L Glucose 117 65-99 mg/dL BUN 20 8-23 mg/dL Creatinine 1.24 0.70-1.30 mg/dL Calcium 9.4 8.6-10.4 mg/dL eGFR by Creatinine 62 >59 mL/min/1.73m2 Protein 7.0 6.0-8.3 g/dL Albumin 4.6 3.5-5.3 g/dL Alkaline Phosphatase 61 40-129 IU/L ALT (SGPT) 26 <5-55 IU/L AST (SGOT) 24 <5-46 IU/L Bilirubin, Total 0.8 <0.2-1.2 mg/dL A/G Ratio 1.9 1.1-2.5 P-PSA Reviewed date:08/19/2024 08:51:33 AM Interpretation: Performing Lab: Notes/Report: Test performed by [facility] [address] [place], [place] [address] [place] , [address], [place] [address] Brad Sun MD, Business Process Analyst CLIA: [id number] PSA 0.23 <4.00 ng/mL Please note this is an ultrasensitive PSA assay with a lower limit of detection of 0.014 ng/mL. This test is performed by the Lyle ECLIA methodology. Values obtained with different assay methods or kits cannot be directly compared. P-TSH Reviewed date:08/19/2024 08:51:33 AM Interpretation: Performing Lab: Notes/Report: Test performed by [facility] [address] [place] [address] , [address], [place] [address] Brad Sun MD, Business Process Analyst CLIA: [id number] TSH 1.91 0.43-5.25 mU/L P-Microalbumin/Creatinine, R andom Urine Sample Reviewed date:08/19/2024 08:51:33 AM Interpretation: Performing Lab: Notes/Report: Test performed by [facility] [address] [place] [address] , [address], [place] [address] Brad Sun MD, Business Process Analyst CLIA: [id number] Albumin/Creatinine Ratio, Urine <24.3 0-30 ug/m g Microalbumin, Urine, Random <0.3 Creatinine, Urine 12.3 Influenza Screen (in house) Reviewed date:01/15/2024 10:16:31 AM Interpretation: Performing Lab: Notes/Report: results Neg CBC Fingerstick (in house) Reviewed date:01/15/2024 10:16:18 AM Interpretation: Performing Lab: Notes/Report: wbc 8.0 3.5 - 10 lym 29.5 15 - 50 mid 6.1 2 - 15 gran 64.4 35 - 80 rbc 4.77 3.5 - 5.5 hgb 15.9 11.5 - 16.5 hct 48.7 35 - 55 mcv 102.1 75 - 100 mch 33.3 25 - 35 mchc 32.6 31 - 38 plat 140 100 - 400 Covid test (in house) Reviewed date:01/15/2024 10:17:25 AM Interpretation:Negative Performing Lab: Notes/Report: Negative Result: Neg H-TSH Reviewed date:02/18/2024 01:13:49 PM Interpretation:Normal Performing Lab: Notes/Report: TSH 2.15 0.465-4.68 uIU/mL H-Lipid Panel Reviewed date:02/18/2024 01:13:49 PM Interpretation:trigs 272, chol 236, dldl 137, vldl 54, chol/hdl 5.6 Performing Lab: Notes/Report: Patient Fasting? Y TRIG 272 30-150 mg/dl CHOL 236 140-200 mg/dl DLDL 136.77 100-129 mg/dL VLDL 54 0-40 mg/dL HDL 42 40-60 mg/dl CHLHDL 5.6 1-3.5 H-CMP Reviewed date:02/18/2024 01:13:49 PM Interpretation:Cr 1.3, gfr 55, gluc 119 Performing Lab: Notes/Report: NA 137 136-145 mmol/L K 4.2 3.5-5.1 mmoL/L CL 102 98-107 mmol/L CO2 29 22.0-30.0 mmol/L GAP 10.2 5-15 mEq/L BUN 19 9-20 mg/dl CREATT 1.30 0.66-1.25 mg/dl GFRAA 66 >60 ML/MIN EGFR 55 >60 ml/min GLU 119 74-100 mg/dl CA 9.5 8.4-10.2 mg/dl BILIT 1.0 0.2-1.3 mg/dl AST 33 17-59 U/L ALT 36 12-78 U/L TP 6.9 6.3-8.2 g/dl ALB 4.4 3.5-5.0 g/dl GLOB 2.5 1.3-3.2 g/dL AGRATIO 1.8 1.1-1.8 ALP 60 38-126 U/L H-Glycohemoglobin A1C Reviewed date:02/18/2024 01:13:49 PM Interpretation:6.1 Performing Lab: Notes/Report: HGBA1C 6.1 4.0-6.0 % < 6% Non-Diabetic Level < 7% Controlled Diabetic Level > 8% Poorly Controlled Diabetic Level X ray : Hip, right Reviewed date:08/19/2024 08:51:33 AM Interpretation: Performing Lab: Notes/Report: Medications Medication SIG (Take, Route, Frequency, Duration) Notes Start Date End Date Status Ondansetron HCl 4 MG 1 tablet Orally thr ee times a day as needed 09/22/2024 Not-Taking Triamcinolone Acetonide 0.1 % 1 application Externally Two times a day 02/14/2024 Active Isosorbide Mononitrate ER 30 MG 1 tablet in the morning Orally Once a day; Duration: 30 day(s) Active Zetia 10 MG TAKE 1 TABLET EVERY DAY Not-Taking Ranolazine ER 500 MG 1 tablet Orally Twi ce a day; Duration: 30 day(s) Active Leqvio 284 MG/1.5ML as directed Subcutaneous Not-Taking Potassium Chloride ER 10 MEQ 1 tab(s) orally once a day Active Farxiga 10 MG 1 tablet Orally Once a day Not-Taking Pantoprazole Sodium 40 MG TAKE 1 TABLET EVERY DAY; Duration: 90 Active predniSONE 10 MG 1 tab tid x 5 days t hen 1 tab bid x 5 days then 1 tab qd x 5 days Orally 09/09/2024 Not-Taking Levothyroxine Sodium 50 MCG 1 tablet in the morning on an empty stomach Orally Once a day; Duration: 90 days Active Aspirin Adult Low Dose 81 MG 1 tab(s) orally QD Active Ozempic (1 MG/DOSE) 4 MG/3ML inject 1 mg Subcutaneous once a week 05/29/2024 Not-Taking Bisoprolol Fumarate 10 MG 1 tab(s) orall y once a day Active Allopurinol 300 MG 1 tablet Orally Once a day; Duration: 30 day(s) Active Nitroglycerin 0.4 MG 1 tab(s) sublingual ly every 5 minutes x 3 Not-Taking traMADol HCl 50 MG 1 tab Orally 4 times a day prn 12/02/2024 Active Furosemide 40 MG 1 tablet Orally Once a day; Duration: [address] 500 MG TAKE 1 TABLET TWICE DAILY; Duration: 90 Active Lisinopril 5 MG 1 tablet Orally twic e a day; Duration: 90 days Active Immunizations Vaccine Route Administration Date Status Comme nts Zostavax IM Intramuscular 02/04/2020 Administered xFluzone-trivalent- medicare pts. IM Intramuscular 04/12/2012 Administered xFluzone Intradermal (18-64yrs)-trivalen t-medicare pts ID Intradermal 05/01/2014 Administered xFluzone (6mos and older)-trivalent IM Intramuscular 04/15/2013 Administered xFlu shot-36 months and older IM Intramuscular 04/02/2006 Administered xFlu shot-36 months and older IM Intramuscular 01/22/2009 Administered xFlu shot-36 months and older IM Intramuscular 03/14/2010 Administered xFlu shot-36 months and older IM Intramuscular 03/17/2011 Administered Tetanus Tdap-Adacel (over 7yrs) IM Intramuscular 02/01/2018 Administered Shingrix Unknown 04/03/2020 Administered Prevnar (PCV20) IM Intramuscular 08/14/2023 Administered Prevnar (PCV13) IM Intramuscular 02/02/2015 Administered Prevnar (PCV13) IM Intramuscular 02/04/2019 Administered PNEUMOVAX 23 VACCINE IM Intramuscular 02/04/2021 Administered Fluzone Quad-Medicare (6months&older) IM Intramuscular 02/02/2017 Administered Fluzone Quad (6months&older) IM Intramuscular 02/02/2015 Administered Fluzone High Dose (65yr and older) IM Intramuscular 02/01/2018 Administered Fluzone High Dose (65yr and older) IM Intramuscular 02/03/2019 Administered Fluzone High Dose (65yr and older) IM Intramuscular 01/27/2020 Administered Fluzone High Dose (65yr and older) IM Intramuscular 02/04/2021 Administered Fluzone High Dose (65yr and older) IM Intramuscular 02/07/2022 Administered Fluzone High Dose (65yr and older) IM Intramuscular 02/08/2023 Administered Fluzone High Dose (65yr and older) IM Intramuscular 02/12/2024 Administered given by jaison houg COVID 19 Moderna Unknown 07/21/2020 Administered COVID 19 Moderna Unknown 08/19/2020 Administered COVID 19 Moderna Unknown 03/30/2021 Administered Problems Problem Type SNOMED Code ICD Code Onset Dates Problem Status W/U Status Risk Notes Problem Gastroesophageal reflux disease (214720926) GERD (gastroesophageal reflux disease) (K21.9) Active confirmed Problem Coronary arteriosclerosis (65675532) ASCVD (arteriosclerotic cardiovascular disease) (I25.10) Active confirmed Problem Hypertension (97202010) HTN (hypertension) (I10) Active confirmed Problem Hyperuricemia (56181315) Hyperuricemia (E79.0) Active confirmed Problem Sick sinus syndrome (45188241) Sick sinus syndrome (I49.5) Active confirmed Problem Male erectile disorder (493285142) Male erectile disorder (F52.21) Active confirmed Problem Primary generalised osteoarthritis (199164442) Primary generalized (osteo)arthritis (M15.0) Active confirmed Problem Chronic kidney disease (disorder) (338072986) Chronic kidney disease (CKD) (N18.9) Active confirmed Problem Chronic pain (53561645) Other chronic pain (G89.29) Active confirmed Problem Cardiac pacemaker in situ (463888180) Presence of cardiac pacemaker (Z95.0) Active confirmed Problem Male erectile disorder (549071143) Male erectile disorder (N52.9) Active confirmed Problem Acquired hypothyroidism (084314912) Acquired hypothyroidism (E03.9) Active confirmed Problem Spinal stenosis of lumbosacral region (486361109) Spinal stenosis of lumbosacral region (M48.07) Active confirmed Problem Obstructive sleep apnea syndrome (85255314) GEORGINA (obstructive sleep apnea) (G47.33) Active confirmed Problem Obese class II (807198895079245) BMI 38.0-38.9,adult (Z68.38) Active confirmed Problem Body mass index 40+ - morbidly obese (444229984) BMI 40.0-44.9, adult (Z68.41) Active confirmed Problem Chronic gouty arthritis (36283117) 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) Active confirmed Problem Multiple nodules of lung (131961138) Lung nodules (R91.8) Active confirmed Problem Obese class II (914303966469487) BMI 37.0-37.9, adult (Z68.37) Active confirmed Problem Dyslipidemia (303118935) Dyslipidemia (E78.5) Active confirmed Problem Obese class II (594698030312245) BMI 39.0-39.9,adult (Z68.39) Active confirmed Problem History of nicotine dependence (311411664237448690 ) History of nicotine dependence (Z87.891) Active confirmed Problem Type II diabetes mellitus without complication (637500474) Type 2 diabetes mellitus without complication, unspecified whether shelter insulin use (E11.9) Active confirmed Vital Signs Heart Rate 60 /min 12/02/2024 Blood pressure diastolic 72 mm Hg 12/02/2024 Height 70.50 in 12/02/2024 Blood pressure systolic 120 mm Hg 12/02/2024 Weight 277.6 lbs 12/02/2024 BMI 39.26 kg/m2 12/02/2024 Encounters Encounter Location Date Provider Diagnosis [facility] [address] [facility] [place] [address] [place] [id number] 01/15/2024 [facility] Tara Viral syndrome B34.9 and Chronic kidney disease (CKD) N18.9 [facility] [place] [address] [place] [id number] [facility] ; HTN (hypertension) I10 ; Dyslipidemia E78.5 ; ASCVD (arteriosclerotic cardiovascular disease) I25.10 ; Acquired hypothyroidism E03.9 ; Statin intolerance Z78.9 ; Chronic kidney disease (CKD) N18.9 ; Screening for prostate cancer Z12.5 ; Sick sinus syndrome I49.5 ; GERD (gastroesophageal reflux disease) K21.9 ; Male erectile disorder N52.9 and History of nicotine dependence Z87.891 [facility] [place] [address] [place] [id number] 08/14[facility] Z00.00 ; HTN (hypertension) I10 ; Dyslipidemia E78.5 ; ASCVD (arteriosclerotic cardiovascular disease) I25.10 ; Acquired hypothyroidism E03.9 ; Statin intolerance Z78.9 ; Chronic kidney disease (CKD) N18.9 ; Sick sinus syndrome I49.5 ; GERD (gastroesophageal reflux disease) K21.9 ; Type 2 diabetes mellitus without complication, unspecified whether shelter insulin use E11.9 ; Hip pain, right M25.551 ; BMI 39.0-39.9,adult Z68.39 ; Male erectile disorder N52.9 ; Screening for prostate cancer Z12.5 ; History of nicotine dependence Z87.891 ; GEORGINA (obstructive sleep apnea) G47.33 and Presence of cardiac pacemaker Z95.0 [facility] [address] [place], [place] [id number] 09/09/2024 R Carlos Enrique Tara Bilateral hip pain M25.551 and BMI 38.0-38.9,adult Z68.38 [facility] [address] [place], [place] [id number] 09/23/2024 R Carlos Enrique Tara Type 2 diabetes major itus without complication, unspecified whether shelter insulin use E11.9 [facility] [address] [place] [id number] 12/02/2024 R Carlos Enrique Tara Primary generalized (osteo)arthritis M15.0 and Spinal stenosis of lumbosacral region M48.07 [facility] [address] [place], [place] [id number] 02/14/2024 R Carlos Enrique Tara [facility] [address] [place], [place] [id number] 02/15/2024 R Carlos Enrique Tara Chronic kidney disea se (CKD) N18.9 [facility] [address] [place] [id number] 02/18/2024 R Carlos Enrique Tara [facility] [address] [place], [place] [id number] 03/04/2024 Fransisco Paisley Primary generalized (osteo)arthritis M15.0 [facility] [address] [place] [id number] 04/08/2024 R Carlos Enrique Tara [facility] [address] [place], [place] [id number] 05/29/2024 R Carlos Enrique Tara [facility] [address] [place] [id number] 05/29/2024 R Carlos Enrique Tara [facility] [address] [place] [id number] 06/04/2024 R Carlos Enrique Tara [facility] [address] [place], [place] [id number] 06/09/2024 R Carlos Enrique Tara Primary generalized (osteo)arthritis M15.0 [facility] [address] [place], [place] [id number] 08/19/2024 R Carlos Enrique Tara [facility] [address] [place] [id number] 08/22/2024 R Carlos Enrique Tara [facility] [address] [place] [id number] 09/05/2024 R Carlos Enrique Tara Type 2 diabetes major itus without complication, unspecified whether shelter insulin use E11.9 [facility] [address] [place], [place] [id number] 09/22/2024 R Carlos Enrique Tara Assessments Encounter Date Diagnosis (ICD Code) Assessment Notes Treatment Notes Treatment Clinical Notes Section Notes 01/15/2024 Viral syndrome (ICD-10 - B34.9) 01/15/2024 Chronic kidney disease (CKD) (ICD-10 - N18.9) 02/12/2024 HTN (hypertension) (ICD-10 - I10) 02/12/2024 Encounter for immunization (ICD-10 - Z23) 02/15/2024 Chronic kidney disease (CKD) (ICD-10 - N18.9) 03/04/2024 Primary generalized (osteo)arthritis (ICD-10 - M15.0) 06/09/2024 Primary generalized (osteo)arthritis (ICD-10 - M15.0) 08/14/2024 HTN (hypertension) (ICD-10 - I10) 08/14/2024 Adult general medical examination (ICD-10 - Z00.00) Patient instructed to return to office Annually for Annual Wellness Visits to include annual screenings of Pain assessment, Functional Ability assessment, Cognitive Ability assessment, Fall Risk assessment, Depression screening and Bladder control screening. 09/05/2024 Type 2 diabetes mellitus without complication, unspecified whether intermediate project manager insulin use (ICD-10 - E11.9) 09/09/2024 Bilateral hip pain (ICD-10 - M25.551) If symptoms persist or recur, will consider MRI. ---Suspect spinal stenosis 09/09/2024 BMI 38.0-38.9,adult (ICD-10 - Z68.38) ---Suspect spinal stenosis 09/23/2024 Type 2 diabetes mellitus without complication, unspecified whether shelter insulin use (ICD-10 - E11.9) He will remain off work this week. 12/02/2024 Primary generalized (osteo)arthritis (ICD-10 - M15.0) 12/02/2024 Spinal stenosis of lumbosacral region (ICD-10 - M48.07) Will obtain plain x-rays of the lumbar spine but will likely need advanced imaging for definitive diagnosis. 08/14/2024 Dyslipidemia (ICD-10 - E78.5) 02/12/2024 Dyslipidemia (ICD-10 - E78.5) 02/12/2024 ASCVD (arteriosclerotic cardiovascular disease) (ICD-10 - I25.10) 08/14/2024 ASCVD (arteriosclerotic cardiovascular disease) (ICD-10 - I25.10) 08/14/2024 Acquired hypothyroidism (ICD-10 - E03.9) 02/12/2024 Acquired hypothyroidism (ICD-10 - E03.9) 02/12/2024 Statin intolerance (ICD-10 - Z78.9) 08/14/2024 Statin intolerance (ICD-10 - Z78.9) 08/14/2024 Chronic kidney disease (CKD) (ICD-10 - N18.9) Considering his heart disease, chronic kidney disease, and prediabetes, he would benefit from starting Farxiga 02/12/2024 Chronic kidney disease (CKD) (ICD-10 - N18.9) Considering his heart disease, chronic kidney disease, and prediabetes, he would benefit from starting Farxiga 02/12/2024 Screening for prostate cancer (ICD-10 - Z12.5) 08/14/2024 Sick sinus syndrome (ICD-10 - I49.5) 08/14/2024 GERD (gastroesophageal reflux disease) (ICD-10 - K21.9) 02/12/2024 Sick sinus syndrome (ICD-10 - I49.5) 02/12/2024 GERD (gastroesophageal reflux disease) (ICD-10 - K21.9) 08/14/2024 Type 2 diabetes mellitus without complication, unspecified whether shelter insulin use (ICD-10 - E11.9) 08/14/2024 Hip pain, right (ICD-10 - M25.551) 02/12/2024 Male erectile disorder (ICD-10 - N52.9) 02/12/2024 History of nicotine dependence (ICD-10 - Z87.891) 08/14/2024 BMI 39.0-39.9,adult (ICD-10 - Z68.39) 08/14/2024 Male erectile disorder (ICD-10 - N52.9) 08/14/2024 Screening for prostate cancer (ICD-10 - Z12.5) 08/14/2024 History of nicotine dependence (ICD-10 - Z87.891) 08/14/2024 GEORGINA (obstructive sleep apnea) (ICD-10 - G47.33) 08/14/2024 Presence of cardiac pacemaker (ICD-10 - Z95.0) Plan Of Treatment Pending Test Test Name Order Date X ray : Spine, lumbosacral 12/02/2024 Next Appt Details Provider Name:Jaelyn Billingsley, 02/12/2025 10:00:00 AM, [address] [facility], [address], [place], [place], [id number], Insurance Providers Payer Name Payer Address Payer Phone Subscriber Number Group Number Insured Name Patient Relationship to Insured Coverage Start Date Coverage End Date [employer] (MEDICAR E) [address] [address] [place] [address] [id number] [id number] ANTONY Self - patient is the insured Medications Administered Medication Instructions Date of Administration Dosage Notes Depo- Medrol 40 mg/ml 06/01/2005 2 mL Depo- Medrol 40 mg/ml 06/20/2005 2 mL Depo- Medrol 40 mg/ml 09/22/2005 2 mL Depo- Medrol 40 mg/ml 10/30/2005 1 mL Depo- Medrol 40 mg/ml 11/03/2005 1 mL Depo- Medrol 40 mg/ml 12/28/2005 1.5 mL Depo- Medrol 40 mg/ml 02/02/2006 1.5 mL Depo- Medrol 40 mg/ml 04/19/2007 1.5 mL Depo- Medrol 40 mg/ml 11/11/2007 1.5 mL Depo- Medrol 40 mg/ml 01/14/2008 1.5 mL Depo- Medrol 40 mg/ml 02/28/2008 1.5 mL Depo- Medrol 40 mg/ml 04/30/2008 1.5 mL Depo- Medrol 40 mg/ml 05/18/2009 1.5 mL Depo- Medrol 40 mg/ml 10/26/2009 1.5 mL Depo- Medrol 40 mg/ml 03/14/2010 2 mL Dexamethasone 12/29/2005 1 mL Medical (General) History Medical History History ICD Code Coronary Artery Disease Myocardial Infarction tobacco abuse, quit in 2003 (50 pack yea r history) hypertension hyperlipidemia Hypothyroidism Gout sleep apnea chronic neck pain obesity GERD OA Statin intolerance SSS - s/p PPM COLOGUARD: Negative 01/2019; 06/2023 CKD 3a Surgical History Surgery Date(Month/Year) CABGx5 2004 colonoscopy 07/2007 heart cath 05/2008 cataract removed from right eye 10/01/18 cataract removed from left eye 10/08/18 heart cath-Dr Moreira 10/2018 cardiac stent-Dr Whitfield pacemaker placed-Dr Whitfield 12/2019 Pacemaker lead replacement -Dr. Whitfield 03/2020 Hospitalization History Reason Date(Month/Year) H-chest pain 12/23/12 [facility] for heart rate low -
--- OUTSIDE RECORDS SUMMARY | 2024-12-03 13:24 | XMS_ITS | Clinical Summary ---
Author Organization [facility] Address [address] [place] [address] Phone Care Team Providers Care Community Service Officer Name Role Phone Larisa Echevarria MD Unavailable [phone] Allergies No known active allergies Medications ezetimibe (ZETIA) 10 mg Oral Tablet Take 10 mg by mouth daily. 3 Active bisoprolol (ZEBETA) 10 mg Oral Tablet Take 10 mg by mouth daily. 3 Active fUROsemide (LASIX) 40 mg Oral Tablet Take 40 mg by mouth once. 3 Active isosorbide mononitrate (IMDUR) 30 mg Oral Tablet Sustained Release 24 hr Take 30 mg by mouth daily. 3 Active LEVOthyroxine (SYNTHROID) 50 mcg Oral Tablet Take 50 mcg by mouth daily. 3 Active lisinopriL (PRINIVIL;ZESTR IL) 5 mg Oral Tablet Take 5 mg by mouth 2 times daily. 3 Active EC-NAPROXEN 500 mg Oral Tablet, Delayed Release (E.C.) Take 500 mg by mouth 2 times daily as needed. 3 Active pantoprazole (PROTONIX) 40 mg Oral Tablet, Delayed Release (E.C.) Take 40 mg by mouth daily. 3 Active potassium chloride (KLOR-CON) 10 mEq Oral Tablet Sustained Release Take 10 mEq by mouth once. 3 Active ranolazine (RANEXA) 500 mg Oral Tablet Sustained Release 12 hr Take 500 mg by mouth 2 times daily. 3 Active traMADol-acetam inophen (ULTRACET) 37.5-325 mg Oral Tablet as needed. 3 Active fish oil OTC (OMEGA-3 DHA-EPA 300 MG) 300-1,000 mg Oral Capsule, Delayed Release(E.C.) Take by mouth 2 times daily. Active cyanocobalamin 1,000 mcg Oral Tablet Take 1,000 mcg by mouth daily. Active aspirin 81 mg Oral Tablet, Delayed Release (E.C.) 1 tab(s) orally QD 9 Active inclisiran (LEQVIO) 284 mg/1.5 mL SubQ Syringe as directed Subcutaneous Active FARXIGA 10 mg Oral Tablet 1 Tablet. 4 Active REPATHA SYRINGE 140 mg/mL SubQ Syringe Inject 140 mg under the skin every 14 days. 5 Active allopurinoL (ZYLOPRIM) 300 mg Oral TabletIndicatio ns:Idiopathic chronic gout of multiple sites without tophus Take 1 Tablet by mouth daily. 90 Tablet 3 5 Active Active Problems Problem Noted Date Diagnosed Date Idiopathic chronic gout of multiple sites withou t tophus 02/21/2023 Overview (01/24/2024): On allopurinol . No flares. Disease with excellent control. Continue with current dose of allopurinol. Localized osteoarthritis of left shoulder 2022 Overview (11/10/2024): : Resolved Assessment & Plan (11/10/2024 9:48 PM EDT): Patient responds to intra-articular steroid injection. Injected left shoulder with corticosteroids 03/03/21. X-ray left shoulder obtained in the office 01/08/17 and reviewed by me with patient on the same day. It revealed a.c. joint osteoarthritis and mild glenohumeral osteoarthritis. No chondrocalcinosis. -Physical therapy was prescribed for left shoulder. 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 Patient expressed understanding. Labs 07/2016 uric acid 7.8 mg/dL. Normal creatinine. Encounters Date Type Department Care Team Description 11/13/2024 Results Follow-Up [facility] [address] [place] [address] Larisa Echevarria MD URIC ACID-QUEST, RENAL FUNCTION PANEL-QUEST 11/12/2024 2:30 PM EDT Office Visit [facility] [address] [place] [address] Larisa Echevarria MD 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); Encounter for long-term (current) use of medications; Localized osteoarthritis of left shoulder 11/12/2024 Orders Only [facility] [address] [place] [address] Larisa Echevarria MD from Last 3 Months Surgical History Surgery Date Site/Laterality Comments CARDIAC PACEMAKER PLACEMENT COLONOSCOPY Medical History Medical History Date Comments Diabetes mellitus (HCC) Heart disease Osteoarthritis CAD (coronary artery disease) Hypertension Depression Social History Tobacco Use Types Packs/Day Years Used Date Smoking Tobacco: Former Cigarettes Smokeless Tobacco: Never Tobacco Cessation:Counseling Given: Not Answered Sex and Gender Information Value Date Recorded Sex Assigned at Not on file Legal Sex Male 11:32 AM EST Gender Identity Not on file Sexual Orientation Not on file Obstetrics History Last Filed Vital Signs Vital Sign Reading [...] Mass Index 38.11 11/12/2024 2:46 PM EDT Plan of Treatment Upcoming Encounters Date Type Department Care Team (Late st Contact Info) Description 09/24/2025 11:30 AM EDT Office Visit [facility] [address] [place] [address] Larisa Echevarria MD [address] [place] [address] Health Maintenance Due Date Last Done Comments Wellness Exam Medicare 1958 Hepatitis C Screening 10/10/1971 Colonoscopy 1998 FIT 1998 Sigmoidoscopy 1998 Virtual Colonography 1998 Zoster (1 of 2) 10/10/2003 RSV or 60+ (1 - Risk 60-74 years 1-dose series) 2013 AAA Screening 2018 COVID-19 Vaccine ( season) 2024 03/17/2022, 03/30/2021, 08/19/2020, Additional history exists Influenza Vaccine (#1) 2025 , 02/04/2021, 01/27/2020, Additional history exists Cologuard 08/19/2026 08/20/2023, 02/16/2019 Colon Cancer Screening 08/19/2026 DTaP/TDaP/Td (2 - Td or Tdap) 02/02/2028 02/01/2018 Pneumococcal Vaccine 50+ Completed 08/14/2023, 01/26 Hepatitis B Vaccine Aged Out No longe r eligible based on patient's age to complete this topic Meningococcal B Vaccine Aged Out No l onger eligible based on patient's age to complete this topic Procedures Procedure Name Priority Date/Time Associated Diagnosis Comments RENAL FUNCTION PANEL-QUEST Routine 11/12/2024 2:34 PM EDT URIC ACID-QUEST Routine 11/12/2024 2:34 PM EDT from Last 3 Months Results * URIC ACID-QUEST (11/12/2024 2:34 PM EDT) Uric Acid 6.0 4.0 - 8.0 mg/dL [facility] Comment: Therapeutic target for gout patients: <6.0 mg/dL 11/12/2024 2:34 PM EDT 11/12/2024 2:35 PM EDT us Larisa Echvearria MD [facility]-CHEMISTRY ORDERABLES Fi nal Result [facility] [address] [place] [address] * (ABNORMAL) RENAL FUNCTION PANEL-QUEST (11/12/2024 2:34 PM EDT) Pathologist [facility] Glucose 92 65 - 99 mg/dL [facility] [...] Echevarria MD QUEST-CHEMISTRY ORDERABLES Fi nal Result Performing Organization Address City/[facility]/ZIP Co de Phone Number [facility] [address] [place] [address] from Last 3 Months Insurance Care Teams Community Service Officer Relationship Specialty Start Date End Date Larisa Echevarria MD [address] [place] [address] Internal Medicine-Rheumatology 02/19/23
--- OUTSIDE RECORDS SUMMARY | 2024-12-03 13:24 | XMS_ITS | Encounter Summary ---
Author Organization [facility] Address [address] [place] [address] Care Team Providers Care Director Critical Care Name Role Phone Larisa Echevarria MD Unavailable [phone] Encounter Details Date Type Department Care Team (Latest Contact Info) Description 11/13/2024 Results Follow-Up [facility] [address] [place] [address] Larisa Echevarria MD [address] [place] [address] URIC ACID-QUEST, RENAL FUNCTION PANEL-QUEST Social History Tobacco Use Types Packs/Day Years [...] Visit [facility] [address] [place] [address] Larisa Echevarria MD [address] [place] [address] documented as of this encounter Visit Diagnoses Not on filedocumented in this encounter Care Teams Director Critical Care Relationship Specialty Start Date End Date Larisa Echevarria MD [address] [place] [address] Internal Medicine-Rheumatology 02/19/23 documented as of this encounter
== END 2024-12-03 23:59 | disposition home or self-care (01) ==
LOC: RAD 13:18
PROVIDERS: PCP Family Medicine; Visit Provider Family Medicine
DX: M47.816 Spondylosis without myelopathy or radiculopathy, lumbar region (principal); M48.00 Spinal stenosis, site unspecified
CPT/HCPCS: 72110

== ENCOUNTER 2024-12-16 08:14 | Outpatient (CLI) | payer MEDICARE, SELFPAY ==
--- OUTSIDE RECORDS SUMMARY | 2024-09-23 09:30 | XMS_ITS ---
Author Organization [facility] [address] [facility] [address] [phone] Care Team Providers Care Entry Level Programmer Name Role Phone Jaelyn Pacheco Primary Care Provider Allergies No Known Allergies REASON FOR VISIT [...] orally once a day Active Vital Signs Weight 260.6 lbs 09/23/2024 Blood pressure systolic 120 mm Hg 09/24/19 25 Blood pressure diastolic 64 mm Hg 025 Heart Rate 60 /min 09/23/2024 Height 70.50 in 09/23/2024 BMI 36.86 kg/m2 09/23/2024 Encounters Encounter Location Date Provider Diagnosis [facility] [address] [facility] [address] [place] [phone] 09/23/2024 Jaelyn Monaco Tara Type 2 diabetes mellitus without complication, unspecified whether rn long term care insulin use E11.9 Assessments Encounter Date Diagnosis (ICD Code) Assessment Notes Treatment Notes Treatment Clinical Notes Section Notes 09/23/2024 Type 2 diabetes mellitus without complication, unspecified whether rn long term care insulin use (ICD-10 - E11.9) He will [...] diabetes mellitus wit hout complication, unspecified whether rn long term care insulin use He will remain off work this week. Next Appt Details Follow Up: prn, Reason: Provider Name:Jaelyn Billingsley, 02/12/2025 10:00:00 AM, [address] [facility], [address], [place], [phone], Progress Notes * TY ANTONY LDOB:[birth year] (69 yo M)Acc No.[id number]:09/23/2024 Progress Notes Patient: TY GLORIA Provider: Jaelyn Pacheco M.D. :1955 A ge:68 Y S ex:Male Date:09/23/2024 Address:[address] [place], [place] [phone] Subjective: * Chief Complaints: * 1 . [...] H for heart rate low 02-03, [facility]-chest pain 12/23/12. * Family History: [...] * Images: Billing Information: * Visit Code: 39001 Office Visit, Est Pt., Level 3. * Procedure Codes: G2211 Complex e/m visit add on. G8752 MOST RECENT SYSTOLIC BP < 140MM HG. G8754 MOST RECENT DIASTOLIC BP < 90MM HG. 3044F HG A1C LEVEL LT 7.0%. * Electronic signature of Jaelyn Pacheco MD on 12/16/2024 at 08:19 AM EDT Sign off status: Pending * Provider: Jaelyn Pacheco M.D. Date: 0 09/23/2024 Generated for Roman kraus/Nico/Jaymeitting on: 0 12/16/2024 08:19 AM EDT
--- OUTSIDE RECORDS SUMMARY | 2024-11-12 14:30 | XMS_ITS | Encounter Summary ---
Author Organization [facility] Address [address] [place] [address] Care Team Providers Care Audio Specialist Name Role Phone Larisa Echevarria MD Unavailable [phone] Reason for Visit * Reason Comments Gout Encounter Details Date Type Department Care Team (Latest Contact Info) Description 11/12/2024 2:30 PM EDT Office Visit [facility] [address] [place] [address] Larisa Echevarria MD [address] [place] [address] Idiopathic chronic gout of multiple [...] Visit [facility] [address] [place] [address] Larisa Echevarria MD [address] [place] [address] Scheduled Orders Name Type Priority [...] 09/22/2024 added in this encounter Care Teams Audio Specialist Relationship Specialty Start Date End Date Larisa Echevarria MD [address] [place] [address] Internal Medicine-Rheumatology 02/19/23 documented as of this encounter
--- OUTSIDE RECORDS SUMMARY | 2024-12-02 12:45 | XMS_ITS ---
Author Organization [facility] Address [address] [facility] [address] [phone] Care Team Providers Care Fixture Fabricator Repairer Name Role Phone Jaelyn Pacheco Primary Care [...] lumbosacral region (M48.07) Active confirmed Vital Signs Weight 277.6 lbs 12/02/2024 Blood pressure systolic 120 mm Hg 12/03/19 25 Blood pressure diastolic 72 mm Hg 025 Heart Rate 60 /min 12/02/2024 Height 70.50 in 12/02/2024 BMI 39.26 kg/m2 12/02/2024 Encounters Encounter Location Date Provider Diagnosis [facility] [address] [facility] [address] [place], [place] [phone] 12/02/2024 Jaelyn Pacheco Primary generalized (osteo)arthritis M15.0 [...] [address], [address], [place], [place], [phone], Progress Notes * TY ANTONY LDOB:[birth year] (69 yo M)Acc No.[id number]:12/02/2024 Progress Notes Patient: TY GLORIA Provider: Jaelyn Pacheco M.D. :1955 A ge:69 Y S ex:Male Date:12/02/2024 Address:[address] [place], [place] [id number] Subjective: * Chief Complaints: * 1 . [...] Procedure: H for heart rate low 02-03, [facility]-chest pain 12/23/12. * Family History: F ather: [...] * Images: Billing Information: * Visit Code: 88637 Office Visit, Est Pt., Level 4. * Procedure Codes: G2211 Complex e/m visit add on. 1036F TOBACCO NON-USER. G8783 BP SCR PRFRM RCMDD DEFIND SCR INTVL. G8752 MOST RECENT SYSTOLIC BP < 140MM HG. G8754 MOST RECENT DIASTOLIC BP < 90MM HG. * Electronic signature of Jaelyn Pacheco MD on 12/16/2024 at 08:18 AM EDT Sign off status: Pending * Provider: Jaelyn Pacheco M.D. Date: 12/02/2024 Generated for Marileei nayana/Nico/eTransmitting on: 12/16/2024 08:18 AM EDT History and Physical Notes * [...]
--- OUTSIDE RECORDS SUMMARY | 2024-12-04 04:26 | XMS_ITS ---
[facility] Address [address] [facility] [address] [facility] [address] [place] [id number] Care Team Providers Care Information Delivery Analyst Name Role Phone Jaelyn Pacheco Primary Care Provider [phone] REASON FOR VISIT Test Results/Controlled Rx Medications Medication SIG (Take, Route, Fr equency, Duration) Notes Start Date End Date Status traMADol HCl 50 MG 1 tab Orally 4 times a day prn 12/05/2024 Active Problems Problem Type SNOMED Code ICD Code Onset Dates Problem Status W/U Status Risk Notes Problem Facet arthropathy, lumbar (M46.96) Active confirmed Encounters Encounter Location Date Provider Diagnosis Sandra [address] [facility] [address] [place] [id number] 12/04/2024 Jaelyn Pacheco Spinal stenosis of lumbosacral region M48.07 ; Facet arthropathy, lumbar M46.96 and Primary generalized (osteo)arthritis M15.0 Assessments Encounter Date Diagnosis (ICD Code) Assessment Notes Treatment Notes Treatment Clinical Notes Section Notes 12/04/2024 Spinal stenosis of lumbosacral region (ICD-10 - M48.07) 12/04/2024 Facet arthropathy, lumbar (ICD-10 - M46.96) 12/04/2024 Primary generalized (osteo)arthritis (ICD-10 - M15.0) Plan Of Treatment Medication Medication Name Sig Start Date Stop Date Notes traMADol HCl 50 MG 1 tab Orally 4 times a day prn 12/06/19 25 Pending Test Test Name Order Date MRI : Spine, Lumbosacral, without contra st 12/04/2024 Next Appt Details Provider Name:Jaelyn Billingsley, 02/12/2025 10:00:00 AM, [address] [facility], [address], [place], [place], [id number], Progress Notes * TY ANTONY LDOB:[birth year] (69 yo M)Acc No.[id number]:12/04/2024 Patient: TY GLORIA :1955 A ge:69 Y S ex:Male Address:[address] [place] [phone] * Refills Start traMADol HCl Tablet, 50 MG, Orally, 30, 1 tab, 4 times a day prn Subjective: * Chief Complaints: * T est Results/Controlled Rx * Medical History: * Surgical History: * Hospitalization/Major Diagno stic Procedure: * Medications: Objective: * Vitals: * Physical Examination: Assessment: * Assessment: 1. S judah stenosis of lumbosacral region - M48.07 (Primary) 2 . F acet arthropathy, lumbar - M46.96 3 . P rimary generalized (osteo)arthritis - M15.0 Plan: * Treatment: 2.?Facet arthropathy, lumbar?Imaging: MRI : Spine, Lumbosacral, without contrast* Mariella Villalba 12/04/2024 09:2 6:53 AM EDT > auth#[id number]; valid 12/04/2024-01/31/2025; CPT code 16829; faxed to Schedulingif patient does not berry picker the phone, please leave a voicemail 3.?Others? Start traMADol HCl Tablet, 50 MG, 1 tab, Orally, 4 times a day prn, 30.?? * Procedure Codes: * true * Date: Generated for Roman kraus/Nico/eTransmitting on: 0 12/16/2024 08:19 AM EDT
--- NOTE | 2024-12-16 08:17 | CT_ITS ---
FINAL REPORT CLINICAL HISTORY: SPINAL STENOSIS OF L-SPINE, BILATERAL PAIN INTO LEGS RIGHT WORSE THAN LEFT COMPARISON: 12/03/2024 FINDINGS: CT LUMBAR SPINE TECHNIQUE: Thin section noncontrast axial CT with sagittal reconstructions This study was performed with techniques to keep radiation doses as low as reasonably achievable, (ALARA). Individualized dose reduction techniques using automated exposure control or adjustment of mA and/or kV according to the patient''s size were employed. FINDINGS: No fracture is present. Alignment is normal. T12-L1: No significant disc disease is present. There is no canal stenosis. L1-L2: Small central disc osteophyte with moderate facet overgrowth. Mild central canal stenosis and neuroforaminal narrowing. L2-L3: Moderate annular disc bulge with facet overgrowth. Mild central canal stenosis. Moderate bilateral neuroforaminal narrowing. L3-L4: Moderate annular disc bulge with severe facet overgrowth. Severe central canal stenosis and neuroforaminal narrowing. L4-L5: Mild annular disc bulge with severe facet overgrowth, severe central canal stenosis and neuroforaminal narrowing. L5-S1: Mild annular disc bulge with moderate facet overgrowth. Mild central canal stenosis and moderate bilateral neuroforaminal narrowing. IMPRESSION: Significant canal stenosis and neuroforaminal narrowing, particularly severe at L3-4 and L4-5. This study was performed using automated techniques to achieve radiation exposure as low as reasonably achievable Reviewed, Interpreted and Dictated by David Zamorano MD Transcribed by Rosangela Longo Authenticated and [facility]
--- OUTSIDE RECORDS SUMMARY | 2024-12-16 08:18 | XMS_ITS | Encounter Summary ---
Author Organization [employer] ([place], [place], [place], [place]) Address [address] [place] [address] Care Team Providers Care Watch Crystal Molder Name Role Phone Unavailable Primary Care Provider Unavailabl e Encounter Details Date Type Department Care Team (Late st Contact Info) Description 11/26/2018 Transcribed Document [facility] [address] [place] [address] ProviderBrennan MD [address], [place] [id number] Social History Tobacco Use Types Packs/Day Years Used Date Smoking Tobacco: Never Assessed Sex and Gender Information Value Date Recorded Sex Assigned at Not on file Legal Sex Male 7:30 PM CDT Gender Identity Not on file Sexual Orientation Not on file documented as of this encounter Miscellaneous Notes * Cerner Conversion Note - Historical ProviderMD - 11/26/2018 6:46 PM CDT Event Note Entered On: 11/26/2018 18:47 EDT Performed On: 11/26/2018 18:46 EDT by OVI LAM RN Event Note Event Date/Time : 11/26/2018 18:45 EDT Description of Event : Up at bed side. Right leg weak and numb. sitting on side of bed rubbing leg. Groin site WNL. OVI LAM, KAMERON - 11/26/2018 18:46 EDT documented in this encounter Plan of Treatment Not on file documented as of this encounter Visit Diagnoses Not on filedocumented in this encounter
--- OUTSIDE RECORDS SUMMARY | 2024-12-16 08:18 | XMS_ITS | Patient Health Record ---
Author Organization Formerly [facility] Address [address] [id number] Care Team Providers Care Marketing Information Coordinator Name Role Phone Jaelyn Pacheco Primary Care Provider [phone] Fransisco Hoyos Unavailable [phone] Allergies No Known Allergies Results Component Value Reference Range Notes Covid test (in house) Reviewed date:01/15/2024 10:17:25 AM Interpretation:Negative Performing Lab: Notes/Report: Negative Result: Neg CBC Fingerstick (in house) Reviewed date:01/15/2024 [...] - 38 plat 140 100 - 400 Influenza Screen (in house) Reviewed date:01/15/2024 10:16:31 AM Interpretation: Performing Lab: Notes/Report: results Neg X ray : Spine, lumbosacral Reviewed date:12/04/2024 08:42:33 AM Interpretation: Performing Lab: Notes/Report: H-TSH Reviewed date:02/18/2024 01:13:49 PM Interpretation:Normal Performing [...] Level > 8% Poorly Controlled Diabetic Level CBC Venipuncture (in house) Reviewed date:08/19/2024 08:51:33 [...] Interpretation: Performing Lab: Notes/Report: Test performed by [facility] [address] [place] [address] , [place] [address] Brad Sun MD, Hurl Shaker CLIA: [id number] Sodium 140 135-145 mmol/L Potassium 4.7 3.5-5.3 [...] Interpretation: Performing Lab: Notes/Report: Test performed by [facility] [address] [place] [address] , [place] [address] Brad Sun MD, Hurl Shaker CLIA: [id number] PSA 0.23 <4.00 ng/mL Please note this is an ultrasensitive PSA assay with a lower limit of detection of 0.014 ng/mL. This test is performed by the Lyle ECLIA methodology. Values obtained with different assay methods or kits cannot be directly compared. P-TSH Reviewed date:08/19/2024 08:51:33 AM Interpretation: Performing Lab: Notes/Report: Test performed by [facility] [address] [place] [address] , [place] [address] Brad Sun MD, Hurl Shaker CLIA: [id number] TSH 1.91 0.43-5.25 mU/L P-Microalbumin/Creatinine, R andom Urine Sample Reviewed date:08/19/2024 08:51:33 AM Interpretation: Performing Lab: Notes/Report: Test performed by [facility] [address] [place] [address] , [address], [place] [address] Brad Sun MD, Hurl Shaker CLIA: [id number] Albumin/Creatinine Ratio, Urine <24.3 0-30 ug/m g Microalbumin, Urine, Random <0.3 Creatinine, Urine 12.3 X ray : Hip, right Reviewed date:08/19/2024 [...] qd x 5 days Orally 09/09/2024 Not-Taking Aspirin Adult Low Dose 81 MG [...] e a day; Duration: 90 days Active Levothyroxine Sodium 50 MCG 1 tablet in the morning on an empty stomach Orally Once a day; Duration: 90 days Active traMADol HCl 50 MG 1 tab Orally 4 times a day prn 12/05/2024 Active Immunizations Vaccine Route Administration Date Status [...] IM Intramuscular 02/12/2024 Administered given by jaison reynolds COVID 19 Moderna Unknown 07/21/2020 Administered COVID 19 Moderna Unknown 08/19/2020 Administered COVID 19 Moderna Unknown 03/30/2021 Administered Problems Problem Type SNOMED Code ICD Code Onset Dates Problem Status W/U Status Risk Notes Problem Gastroesophageal reflux disease (650991915) GERD (gastroesophageal reflux disease) (K21.9) Active confirmed Problem Coronary arteriosclerosis (53777639) ASCVD (arteriosclerotic cardiovascular disease) (I25.10) Active confirmed Problem Hypertension (52959121) HTN (hypertension) (I10) Active confirmed Problem Hyperuricemia (89586905) Hyperuricemia (E79.0) Active confirmed Problem Sick sinus syndrome (41216229) Sick sinus syndrome (I49.5) Active confirmed Problem Male erectile disorder (601315383) Male erectile disorder (F52.21) Active confirmed Problem Primary generalised osteoarthritis (406820163) Primary generalized (osteo)arthritis (M15.0) Active confirmed Problem Chronic kidney disease (disorder) (782639897) Chronic kidney disease (CKD) (N18.9) Active confirmed Problem Chronic pain (10237126) Other chronic pain (G89.29) Active confirmed Problem Cardiac pacemaker in situ (044585955) Presence of cardiac pacemaker (Z95.0) Active confirmed Problem Male erectile disorder (044407519) Male erectile disorder (N52.9) Active confirmed Problem Acquired hypothyroidism (765845897) Acquired hypothyroidism (E03.9) Active confirmed Problem Spinal stenosis of lumbosacral region (201033167) Spinal stenosis of lumbosacral region (M48.07) Active confirmed Problem Arthropathy of lumbar facet joint (disorder) (465585075) Facet arthropathy, lumbar (M46.96) Active confirmed Problem Obstructive sleep apnea syndrome (28076313) GEORGINA (obstructive sleep apnea) (G47.33) Active confirmed Problem Obese class II (123268545100370) BMI 38.0-38.9,adult (Z68.38) Active confirmed Problem Body mass index 40+ - morbidly obese (109507385) BMI 40.0-44.9, adult (Z68.41) Active confirmed Problem Chronic gouty arthritis (69554342) 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) Active confirmed Problem Multiple nodules of lung (445947417) Lung nodules (R91.8) Active confirmed Problem Obese class II (520894263751003) BMI 37.0-37.9, adult (Z68.37) Active confirmed Problem Dyslipidemia (495584631) Dyslipidemia (E78.5) Active confirmed Problem Obese class II (489798459723481) BMI 39.0-39.9,adult (Z68.39) Active confirmed Problem History of nicotine dependence (353543686056791427 ) History of nicotine dependence (Z87.891) Active confirmed Problem Type II diabetes mellitus without complication (608224487) Type 2 diabetes mellitus without complication, unspecified whether care home insulin use (E11.9) Active confirmed Vital Signs Heart Rate 60 /min 12/02/2024 Blood pressure diastolic 72 mm Hg 12/02/2024 Height 70.50 in 12/02/2024 Blood pressure systolic 120 mm Hg 12/02/2024 Weight 277.6 lbs 12/02/2024 BMI 39.26 kg/m2 12/02/2024 Encounters Encounter [facility] Date Provider [facility] [address] [place] [id number] 01/15/2024 R Carlos Enrique Pacheco Viral syndrome B34.9 and Chronic kidney disease (CKD) N18.9 [facility] [address] [place] [id number] 02/12/2024 R Carlos Enrique Pacheco Encounter for immunization Z23 ; HTN (hypertension) I10 ; Dyslipidemia E78.5 ; ASCVD (arteriosclerotic cardiovascular disease) I25.10 ; Acquired hypothyroidism E03.9 ; Statin intolerance Z78.9 ; Chronic kidney disease (CKD) N18.9 ; Screening for prostate cancer Z12.5 ; Sick sinus syndrome I49.5 ; GERD (gastroesophageal reflux disease) K21.9 ; Male erectile disorder N52.9 and History of nicotine dependence Z87.891 [facility] [address] [place] [id number] 08/14/2024 R Carlos Enrique [facility] Adult general medica l examination Z00.00 ; HTN (hypertension) I10 ; Dyslipidemia E78.5 ; ASCVD (arteriosclerotic cardiovascular disease) I25.10 ; Acquired hypothyroidism E03.9 ; Statin intolerance Z78.9 ; Chronic kidney disease (CKD) N18.9 ; Sick sinus syndrome I49.5 ; GERD (gastroesophageal reflux disease) K21.9 ; Type 2 diabetes mellitus without complication, unspecified whether care home insulin use E11.9 ; Hip pain, right M25.551 ; BMI 39.0-39.9,adult Z68.39 ; Male erectile disorder N52.9 ; Screening for prostate cancer Z12.5 ; History of nicotine dependence Z87.891 ; GEORGINA (obstructive sleep apnea) G47.33 and Presence of cardiac pacemaker Z95.0 [facility] [address] [facility] [address] [place] [id number] 09/09/2024 R Carlos Enrique Castrejon[place]et Bilateral hip pain M25.551 and BMI 38.0-38.9,adult Z68.38 [facility] [address] [facility] [address] [place] [id number] 09/23/2024 R Carlos Enrique Castrejonfleet Type 2 diabetes major itus without complication, unspecified whether care home insulin use E11.9 [facility] [address] [facility] [address] [place] [id number] 12/02/2024 R Carlos Enrique Castrejonfleet Primary generalized (osteo)arthritis M15.0 and Spinal stenosis of lumbosacral region M48.07 [facility] [address] [facility] [address] [place] [id number] 12/08/2024 R Carlos Enrique Tara [facility] [address] [facility] [address] [place] [id number] 02/14/2024 R Carlos Enrique Tara [facility] [address] [facility] [address] [place] [id number] 02/15/2024 R Carlos Enrique Tara Chronic kidney disea se (CKD) N18.9 [facility] [address] [facility] [address] [place], [place] [id number] 02/18/2024 R Carlos Enrique Tara [facility] [address] [place], [place] [id number] 03/04/2024 Fransisco Caspar Primary generalized (osteo)arthritis M15.0 [facility] [address] [place], [place] [id number] 04/08/2024 R Carlos Enrique Tara [facility] [address] [place], [place] [id number] 05/29/2024 R Carlos Enrique Tara [facility] [address] [place], [place] [id number] 05/29/2024 R Carlos Enrique Tara [facility] [address] [place], [place] [id number] 06/04/2024 R Carlos Enrique Tara [facility] [address] [place], [place] [id number] 06/09/2024 R Carlos Enrique Tara Primary generalized (osteo)arthritis M15.0 [facility] [address] [place], [place] [id number] 08/19/2024 R Carlos Enrique Tara [facility] [address] [place], [place] [id number] 08/22/2024 R Carlos Enrique Tara [facility] [address] [place], [place] [id number] 09/05/2024 R Carlos Enrique Tara Type 2 diabetes major itus without complication, unspecified whether care home insulin use E11.9 [facility] [address] [place], [place] [id number] 09/22/2024 R Carlos Enrique Tara [facility] [address] [place], [place] [id number] 12/04/2024 R Carlos Enrique Tara Spinal stenosis of lumbosacral region M48.07 ; Facet arthropathy, lumbar M46.96 and Primary generalized (osteo)arthritis M15.0 [facility] [address] [place], [place] [id number] 12/04/2024 Jaelyn Pacheco Assessments Encounter Date Diagnosis (ICD Code) Assessment [...] complication, unspecified whether care home insulin use (ICD-10 - E11.9) 09/09/2024 Bilateral hip pain (ICD-10 - M25.551) If symptoms persist or recur, will consider MRI. ---Suspect spinal stenosis 09/09/2024 BMI 38.0-38.9,adult (ICD-10 - Z68.38) ---Suspect spinal stenosis 09/23/2024 Type 2 diabetes mellitus without complication, unspecified whether ferry terminal agent insulin use (ICD-10 - E11.9) He will remain off work this week. 12/02/2024 Primary generalized (osteo)arthritis (ICD-10 - M15.0) 12/02/2024 Spinal stenosis of lumbosacral region (ICD-10 - M48.07) Will obtain plain x-rays of the lumbar spine but will likely need advanced imaging for definitive diagnosis. 12/04/2024 Spinal stenosis of lumbosacral region (ICD-10 - M48.07) 12/04/2024 Facet arthropathy, lumbar (ICD-10 - M46.96) 08/14/2024 Dyslipidemia (ICD-10 - E78.5) 12/04/2024 Primary generalized (osteo)arthritis (ICD-10 - M15.0) 02/12/2024 Dyslipidemia (ICD-10 - E78.5) 02/12/2024 ASCVD [...] complication, unspecified whether care home insulin use (ICD-10 - E11.9) 02/12/2024 Male erectile disorder (ICD-10 - N52.9) 08/14/2024 Hip pain, right (ICD-10 - M25.551) 02/12/2024 History of nicotine dependence (ICD-10 - Z87.891) 08/14/2024 BMI 39.0-39.9,adult (ICD-10 - Z68.39) 08/14/2024 Male erectile disorder (ICD-10 - N52.9) 08/14/2024 Screening for prostate cancer (ICD-10 - Z12.5) 08/14/2024 History of nicotine dependence (ICD-10 - Z87.891) 08/14/2024 GOERGINA (obstructive sleep apnea) (ICD-10 - G47.33) 08/14/2024 Presence of cardiac pacemaker (ICD-10 - Z95.0) Plan Of Treatment Pending Test Test Name Order Date MRI : Spine, Lumbosacral, without contra st 12/04/2024 CT Scan : Spine, lumbosacral, without co ntrast 12/08/2024 Next Appt Details Provider Name:Jaelyn Ho et, 02/12/2025 10:00:00 AM, [address] [facility], [address], [place], [place], [id number], Insurance Providers Payer Name Payer Address Payer Phone Subscriber Number Group Number Insured Name Patient Relationship to Insured Coverage Start Date Coverage End Date [employer] (MEDICAR E) [address] [address] [place] [phone] [id number] ANTONY Self - patient is the [...] CKD 3a Surgical History Surgery Date(Month/Year) CABGx5 2003 colonoscopy 07/2007 heart cath 05/2008 cataract removed from right eye 10/01/18 cataract removed from left eye 10/08/18 heart cath-Dr Moreira 10/2018 cardiac stent-Dr Whitfield pacemaker placed-Dr Whitfield 12/2019 Pacemaker lead replacement -Dr. Whitfield 03/2020 Hospitalization History Reason Date(Month/Year) [facility] 12/23/12 [facility] for heart rate low 9-09
--- OUTSIDE RECORDS SUMMARY | 2024-12-16 08:18 | XMS_ITS | Clinical Summary ---
Author Organization [facility] ([place], [place], [place], [place]) Address [address] [place] [address] Care Team Providers Care Security Systems Sales Representative Name Role Phone Unavailable Primary Care Provider Unavailabl e Social History Tobacco Use Types Packs/Day Years Used Date Smoking Tobacco: Never Assessed Sex and Gender Information Value Date Recorded Sex Assigned at Not on file Legal Sex Male 7:30 PM CDT Gender Identity Not on file Sexual Orientation Not on file Plan of Treatment Not on file
--- OUTSIDE RECORDS SUMMARY | 2024-12-16 08:18 | XMS_ITS | Clinical Summary ---
Author Organization Healthcare Address [address] [place] [address] Care Team Providers Care Gasket Former Name Role Phone Estuardo Pacheco MD Primary Care Provider [phone] Social History Tobacco Use Types Packs/Day Years Used Date Smoking Tobacco: Never Assessed Sex and Gender Information Value Date Recorded Sex Assigned at Not on file Legal Sex Male 7:50 PM EDT Gender Identity Not on file Sexual Orientation Not on file Plan of Treatment Upcoming Encounters Date Type Department Care Team (Late st Contact Info) Description 04/22/2025 11:30 AM EST Appointment [facility] [address] [place] [address] Health Maintenance Due Date Last Done Comments [facility]-Depression Screening 1955 [facility]-Diabetes: Hemoglobin A1C 1955 [facility]-Hepatitis C Screening 1955 [facility]Medicare Annual Wellness (AWV) 1955 [facility]-/Child/Adol SDOH Screenings 1955 Diabetes: Dental Exam 10/10/1963 [facility]- SDOH Screenings 10/10/1971 [facility]-Adult SDOH Screenings 10/10/1971 CT Colonography 1998 Colonoscopy 1998 FIT-DNA 1998 FIT 1998 FOBT 1998 Sigmoidoscopy 1998 [facility]-Colorectal Cancer Screening 1998 [facility]-Zoster Vaccines (1 of 2) 10/10/2003 [id number] Vaccine ( season) 2024 03/17/2022, 03/30/2021, 08/19/2020, Additional history exists [facility]-Influenza Vaccine (#1) 01/26/202502/07, 02/04/2021, 01/27/2020, Additional history exists [facility]-DTaP,Tdap,and Td Vaccines (2 - Td or [...] patient's age to complete this topic Insurance MEDICARE Care Teams Gasket Former Relationship Specialty Start Date End Date Estuardo Pacheco MD [address] [place] [address] PCP - General 10/08/20
--- OUTSIDE RECORDS SUMMARY | 2024-12-16 08:19 | XMS_ITS | Encounter Summary ---
Author Organization [employer] ([place], [place], [place], [place]) Address [address] [place] [address] Care Team Providers Care Senior Regulatory Affairs Specialist Name Role Phone Unavailable Primary Care Provider Unavailabl e Encounter Details Date Type Department Care Team (Late st Contact Info) Description 11/26/2018 Transcribed Document [facility] [place] Family Medicine [facility] [place] [address] ProviderBrennan MD [address] [place] [id number] Social History Tobacco Use Types Packs/Day Years Used Date Smoking Tobacco: Never Assessed Sex and Gender Information Value Date Recorded Sex Assigned at Not on file Legal Sex Male 7:30 PM CDT Gender Identity Not on file Sexual Orientation Not on file documented as of this encounter Miscellaneous Notes * Cerner Conversion Note - Brennan ProviderMD - 11/26/2018 7:23 PM CDT [facility] [place] [address] TY ANTONY SAM :1955 Visit Time:11/26/2018 Your Visit Summary Your Care Team Admitting Physician - SELENE SURESH MD-CAR Attending Physician - SELENE SURESH MD-CAR Primary Care Physician - UMAIR ROBLERO (REF)MD Referring Physician - SELENE SURESH MD-CAR Your Diagnosis Atherosclerotic heart disease of [place] coronary artery with unstable angina pectoris, Atherosclerotic heart disease of [place] coronary artery with unstable angina pectoris Discharge Vitals Heart Rate (Monitored) 52 Respiratory Rate 12 Blood Pressure 143/62 What to do next Instructions From Your Care Team Diet after Discharge: Resume usual diet as tolerated, _, _ Fluid Restriction after Discharge: _ Activity after Discharge: _, Rest and relax today, No strenuous activity Lifting Restrictions: No heavy lifting over 10 pounds for 3 days. Weight Bearing: _ Bedrest: _ Driving after Discharge: Do not drive for 24 hours May Return to Work/School: Showering/Bathing: May shower tomorrow, _ Notify Provider of: Wound/Incision Care after Discharge: Keep operative site/wound site clean and dry, _ Medical Equipment for Home Use: Home Health Services: Community Services: Discharge Follow Up Instructions: follow up with Sepideh Shahid PA-C in [phone] Follow-Up Appointments Follow Up with SELENE SURESH MD-CAR When Within 1 month Comments Call for follow up appointment Where: [address] [place] [address] [address] [place] [address]- Medications What How Much When Instructions Next Dose levothyroxine 50 Microgram(s) Oral At Bedtime potassium chloride (potassium chloride 10 mEq oral tablet, extended release) 1 Tablet(s) Oral Every Day acetaminophen-tramadol (acetaminophen-traMADOL 325 mg-37.5 mg oral tablet) 1 Tablet(s) Oral Every 4 Hours as needed for for pain allopurinol (allopurinol 300 mg oral tablet) 1 Tablet(s) Oral Every Day aspirin 81 Milligram(s) Oral Every Day ezetimibe (Zetia) 5 Milligram(s) Oral At Bedtime furosemide (furosemide 40 mg oral tablet) 1 Tablet(s) Oral Every Day lisinopril (lisinopril 2.5 mg oral tablet) 1 Tablet(s) Oral Two Times A Day multivitamin (Multiple Vitamins oral tablet) 1 Tablet(s) Oral Every Day naproxen (naproxen 500 mg oral tablet) 1 Tablet(s) Oral Two Times A Day omega-3 polyunsaturated fatty acids (Fish Oil) 1,000 Milligram(s) Oral Two Times A Day pantoprazole (pantoprazole 40 mg oral enteric coated tablet) 1 Tablet(s) Oral Every Day ticagrelor (Brilinta (ticagrelor) 90 mg oral tablet) 1 Tablet(s) Oral Two Times A Day ubiquinone (Co Q-10) 100 Milligram(s) Oral At Bedtime Take your medications faithfully. Do NOT skip medication. Do NOT stop taking medications without the direction of a physician. Carry a list of your medications with you at all times, and take this medication list with you to your first follow up visit. Report any side effects. Avoid herbal remedies unless discussed with your physician. As part of your treatment plan, your physician may have prescribed a limited course of a controlled substance. This medication may be given to help people with moderate or severe pain or for other medical conditions, but there are risks involved with treatment. Common side effects may include nausea, constipation, drowsiness, sweating, itching, dry mouth, and rash. More serious side effects may include cognitive and motor impairment, like problems with thinking, concentrating, alertness, and movement (e.g. slowed reflexes), and driving and operating heavy machinery can be dangerous. It is important for you to talk to your physician if you have these side effects or questions. These controlled substances can produce physical dependence and be habit-forming if taken for an extended period of time, which means that the body has gotten used to them and may experience withdrawal symptoms if they are abruptly stopped. Withdrawal symptoms can include runny nose, sweating, goose bumps, diarrhea, abdominal cramping, rapid heartbeat, difficulty sleeping, and nervousness. Please dispose of unused and medications per your retail pharmacy guidance. Allergies No Known Allergies Immunizations This Visit No Immunizations Found Education Materials Moderate Conscious Sedation, Adult, Care After These instructions provide you with information about caring for yourself after your procedure. Your health care provider may also give you more specific instructions. Your treatment has been planned according to current medical practices, but problems sometimes occur. Call your health care provider if you have any problems or questions after your procedure. What can I expect after the procedure? After your procedure, it is common: ??? To feel sleepy for several hours. ??? To feel clumsy and have poor balance for several hours. ??? To have poor judgment for several hours. ??? To vomit if you eat too soon. Follow these instructions at home: For at least 24 hours after the procedure: ??? Do not: ? Participate in activities where you could fall or become injured. ? Drive. ? Use heavy machinery. ? Drink alcohol. ? Take sleeping pills or medicines that cause drowsiness. ? Make important decisions or sign legal documents. ? Take care of children on your own. ??? Rest. Eating and drinking ??? Follow the diet recommended by your health care provider. ??? If you vomit: ? Drink water, juice, or soup when you can drink without vomiting. ? Make sure you have little or no nausea before eating solid foods. General instructions ??? Have a responsible adult stay with you until you are awake and alert. ??? Take avlv-rpo-eutqwcl and prescription medicines only as told by your health care provider. ??? If you smoke, do not smoke without supervision. ??? Keep all follow-up visits as told by your health care provider. This is important. Contact a health care provider if: ??? You keep feeling nauseous or you keep vomiting. ??? You feel light-headed. ??? You develop a rash. ??? You have a fever. Get help right away if: ??? You have trouble breathing. This information is not intended to replace advice given to you by your health care provider. Make sure you discuss any questions you have with your health care provider. Document Released: 03/04/2014 Document Revised: 10/16/2016 Document Reviewed: 09/02/2016 [employer] Interactive Patient Education ?? 2019 [employer] Coronary Angiogram A coronary angiogram is an X-ray procedure that is used to examine the arteries in the heart. In this procedure, a dye (contrast dye) is injected through a long, thin tube (catheter). The catheter is inserted through the groin, wrist, or arm. The dye is injected into each artery, then X-rays are taken to show if there is a blockage in the arteries of the heart. This procedure can also show if you have valve disease or a disease of the aorta, and it can be used to check the overall function of your heart muscle. You may have a coronary angiogram if: ??? You are having chest pain, or other symptoms of angina, and you are at risk for heart disease. ??? You have an abnormal electrocardiogram (ECG) or stress test. ??? You have chest pain and heart failure. ??? You are having irregular heart rhythms. ??? You and your health care provider determine that the benefits of the test information outweigh the risks of the procedure. Let your health care provider know about: ??? Any allergies you have, including allergies to contrast dye. ??? All medicines you are taking, including vitamins, herbs, eye drops, creams, and fifm-mob-wfbdnhz medicines. ??? Any problems you or family members have had with anesthetic medicines. ??? Any blood disorders you have. ??? Any surgeries you have had. ??? History of kidney problems or kidney failure. ??? Any medical conditions you have. ??? Whether you are or may be . What are the risks? Generally, this is a safe procedure. However, problems may occur, including: ??? Infection. ??? Allergic reaction to medicines or dyes that are used. ??? Bleeding from the access site or other locations. ??? Kidney injury, especially in people with impaired kidney function. ??? Stroke (rare). ??? Heart attack (rare). ??? Damage to other structures or organs. What happens before the procedure? Staying hydrated Follow instructions from your health care provider about hydration, which may include: ??? Up to 2 hours before the procedure ??? you may continue to drink clear liquids, such as water, clear fruit juice, black coffee, and plain tea. Eating and drinking restrictions Follow instructions from your health care provider about eating and drinking, which may include: ??? 8 hours before the procedure ??? stop eating heavy meals or foods such as meat, fried foods, or fatty foods. ??? 6 hours before the procedure ??? stop eating light meals or foods, such as toast or cereal. ??? 2 hours before the procedure ??? stop drinking clear liquids. General instructions ??? Ask your health care provider about: ? Changing or stopping your regular medicines. This is especially important if you are taking diabetes medicines or blood thinners. ? Taking medicines such as ibuprofen. These medicines can thin your blood. Do not take these medicines before your procedure if your health care provider instructs you not to, though aspirin may be recommended prior to coronary angiograms. ??? Plan to have someone take you home from the hospital or clinic. ??? You may need to have blood tests or X-rays done. What happens during the procedure? An IV tube will be inserted into one of your veins. ??? You will be given one or more of the following: ? A medicine to help you relax (sedative). ? A medicine to numb the area where the catheter will be inserted into an artery (local anesthetic). ??? To reduce your risk of infection: ? Your health care team will wash or sanitize their hands. ? Your skin will be washed with soap. ? Hair may be removed from the area where the catheter will be inserted. ??? You will be connected to a continuous ECG monitor. ??? The catheter will be inserted into an artery. The location may be in your groin, in your wrist, or in the fold of your arm (near your elbow). ??? A type of X-ray (fluoroscopy) will be used to help guide the catheter to the opening of the blood vessel that is being examined. ??? A dye will be injected into the catheter, and X-rays will be taken. The dye will help to show where any narrowing or blockages are located in the heart arteries. ??? Tell your health care provider if you have any chest pain or trouble breathing during the procedure. ??? If blockages are found, your health care provider may perform another procedure, such as inserting a coronary stent. The procedure may vary among health care providers and hospitals. What happens after the procedure? After the procedure, you will need to keep the area still for a few hours, or for as long as told by your health care provider. If the procedure is done through the groin, you will be instructed to not bend and not cross your legs. ??? The insertion site will be checked frequently. ??? The pulse in your foot or wrist will be checked frequently. ??? You may have additional blood tests, X-rays, and a test that records the electrical activity of your heart (ECG). ??? Do not drive for 24 hours if you were given a sedative. Summary ??? A coronary angiogram is an X-ray procedure that is used to look into the arteries in the heart. ??? During the procedure, a dye (contrast dye) is injected through a long, thin tube (catheter). The catheter is inserted through the groin, wrist, or arm. ??? Tell your health care provider about any allergies you have, including allergies to contrast dye. ??? After the procedure, you will need to keep the area still for a few hours, or for as long as told by your health care provider. This information is not intended to replace advice given to you by your health care provider. Make sure you discuss any questions you have with your health care provider. Document Released: 11/18/2003 Document Revised: 02/23/2017 Document Reviewed: 02/23/2017 [employer] Interactive Patient Education ?? 2019 [employer] Groin Site Care Refer to this sheet in the next few weeks. These instructions provide you with information on caring for yourself after your procedure. Your caregiver may also give you more specific instructions. Your treatment has been planned according to current medical practices, but problems sometimes occur. Call your caregiver if you have any problems or questions after your procedure. HOME CARE INSTRUCTIONS ??? You may shower 24 hours after the procedure. Remove the bandage (dressing ) and gently wash the site with plain soap and water. Gently pat the site dry. ??? Do not apply powder or lotion to the site. ??? Do not sit in a bathtub, swimming pool, or whirlpool for 5 to 7 days. ??? No bending, squatting, or lifting anything over 10 pounds (4.5 kg) as directed by your caregiver. ??? Inspect the site at least twice daily. ??? Do not drive home if you are discharged the same day of the procedure. Have someone else drive you. ??? You may drive 24 hours after the procedure unless otherwise instructed by your caregiver. What to expect: ??? Any bruising will usually fade within 1 to 2 weeks. ??? Blood that collects in the tissue (hematoma ) may be painful to the touch. It should usually decrease in size and tenderness within 1 to 2 weeks. SEEK IMMEDIATE MEDICAL CARE IF: ??? You have unusual pain at the groin site or down the affected leg. ??? You have redness, warmth, swelling, or pain at the groin site. ??? You have drainage (other than a small amount of blood on the dressing). ??? You have chills. ??? You have a fever or persistent symptoms for more than 72 hours. ??? You have a fever and your symptoms suddenly get worse. ??? Your leg becomes pale, cool, tingly, or numb. ??? You have heavy bleeding from the site. Hold pressure on the site. Document Released: 06/16/2011 Document Revised: 08/05/2012 Document Reviewed: 06/16/2011 ExitCare?? Patient Information ??2013 [employer]. Emergency Awareness and Preventative Care STROKE is an EMERGENCY Every Minute Counts Act FAST and Check for these signs: FACE Does the face look uneven? ARM Does one arm drift down? SPEECH Does their speech sound strange? TIME Call at any sign of stroke Stroke Risk Factors Atrial Fibrillation (irregular heartbeat) Diabetes Family history of stroke Heart Disease Heavy alcohol use High Blood Pressure High Cholesterol Physical inactivity and obesity Smoking Cigarette Smoking The facts are clear, cigarette smoking will shorten your life. Smoking can cause many illnesses along the way. As a healthcare provider, we recommend that you stop smoking. Assistance with quitting is available by contacting 9-573-RGXBNOW. This is a free resource providing counseling, support, and referral. Or you may contact your personal physician. [employer] Suicide Prevention Lifeline: The National Suicide Prevention Lifeline is a national network of local crisis centers that provides free and confidential emotional support to people in suicidal crisis or emotional distress 24 hours a day, 7 days a week. Don't Wait! Stop a Heart Attack Before it Starts What is a heart attack? A heart attack is damage or to a part of the heart from severely decreased or lack of blood flow to the heart. Over time, arteries can become narrow from the buildup of fat and cholesterol, which is called plaque. The plaque can rupture causing a blood clot to form. When the blood clot forms, the artery can become severely narrowed or completely blocked, causing a heart attack. Heart attack is the leading cause of in the [place]. 85% of muscle damage occurs within the first 2 hours. Delay in the recognition of heart attack symptoms increases the chances of . Know the early symptoms of a heart attack: Nausea Feeling of fullness in chest Jaw Pain Pain that travels down one or both arms Fatigue/being tired Anxiety Back Pain Chest pressure, squeezing, or discomfort Shortness of breath Sweating, or a cold sweat Feeling of impending doom There are unusual signs of a heart attack, too! Women, the elderly, and diabetics may present with atypical symptoms: Fainting/dizziness Weakness Confusion Risk Factors for a Heart Attack Some heart disease risk factors, such as age and family history, cannot be changed. Others, like smoking and lack of exercise, can be changed. Smoking High Cholesterol High Blood Pressure Family History Obesity Age Gender (Males are at higher risk) Lack of Exercise Diabetes Diet Stress Excessive Alcohol Intake If you or someone you know is experiencing the signs and symptoms of a heart attack, DON???T DELAY. Call immediately and seek help. If someone collapses, perform CPR! Do not attempt to drive if you are having symptoms of heart attack. Hands-Only CPR Why Hands-Only CPR? Hands-Only CPR has been shown to be as effective as conventional CPR for cardiac arrests that occur outside of a hospital. Survival depends on immediately receiving CPR from someone nearby. How do you perform Hands-Only CPR? There are two easy steps: Call if you see a teen or adult collapse Push hard and fast in the center of the chest at a beat of 100 beats per minute. Save a life! 4 WAYS TO GET AHEAD OF SEPSIS SEPSIS is a MEDICAL EMERGENCY. Time matters! Infections put you and your family at risk for a life-threatening condition called sepsis. Sepsis is the body's extreme response to an infection. It is life-threatening, and without timely treatment, sepsis can rapidly lead to tissue damage, organ failure, and . Sepsis happens when an infection you already have-in your skin, lungs, urinary tract or somewhere else-triggers a chain reaction throughout your body. 1 PREVENT INFECTIONS Take good care of chronic conditions. Talk to your doctor about getting the recommended vaccines. 2 PRACTICE GOOD HYGIENE Wash your hands frequently. Keep cuts or open sores clean and covered until they are healed. 3 KNOW THE SYMPTOMS Confusion or disorientation Shortness of breath High heart rate Fever, shivering, or feeling very cold Extreme pain or discomfort Clammy or sweaty skin 4 ACT FAST Get medical care IMMEDIATELY if you suspect sepsis or if you have an infection that is not getting better or is getting worse. To learn more about sepsis and how to prevent infections, visit www.cdc.gov/sepsis. Test Results Laboratory or Other Results This Visit (last charted value for your 11/26/2018 visit) Hematology 11/26/18 13:35:00 Platelet Count: 183 K/uL -- Normal range between ( 163 and 369 ) Patient Name:TY ANTONY I have received and understand this information and was given the opportunity to ask questions. 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
--- OUTSIDE RECORDS SUMMARY | 2024-12-16 08:19 | XMS_ITS | Encounter Summary ---
Author Organization [facility] Address [address] [place] [address] Care Team Providers Care Operations Program Manager Name Role Phone Larisa Echevarria MD Unavailable Encounter Details Date Type Department Care Team (Late st Contact Info) Description 11/12/2024 Orders Only [facility] [address] [place] [address] Larisa Echevarria MD [address] [place] [address] Social History Tobacco Use Types [...] Description 09/24/2025 11:30 AM EDT [facility] [address] [place] [address] Larisa Echevarria MD [address] [place] [address] documented as of this encounter [...] QUEST-CHEMISTRY ORDERABLES Fi nal Result [facility] [address] [place] [address] * URIC ACID-[facility] (11/12/2024 2:34 PM EDT) Uric Acid 6.0 4.0 - 8.0 mg/dL [facility] Comment: Therapeutic target for gout patients: <6.0 mg/dL 11/12/2024 2:34 PM EDT 11/12/2024 2:35 PM EDT us Larisa Echevarria MD QUEST-CHEMISTRY ORDERABLES Fi nal Result QUE[facility] [address] [place] [address] documented in this encounter Visit Diagnoses Not on filedocumented in this encounter Care Teams Operations Program Manager Relationship Specialty Start Date End Date Larisa Echevarria MD [address] [place] [address] Internal Medicine-Rheumatology 02/19/23 documented as of this encounter
--- OUTSIDE RECORDS SUMMARY | 2024-12-16 08:19 | XMS_ITS | Encounter Summary ---
Author Organization [employer] ([place], [place], [place], [place]) Address [address] [place] [address] Care Team Providers Care Paid Search Marketing Strategist Name Role Phone Unavailable Primary Care Provider Unavailabl e Encounter Details Date Type Department Care Team (Late st Contact Info) Description 11/26/2018 Transcribed Document [facility] [place] [facility] [place] [address] ProviderBrennan MD [address] [place], [place] [id number] Social History Tobacco Use Types Packs/Day Years Used Date Smoking Tobacco: Never Assessed Sex and Gender Information Value Date Recorded Sex Assigned at Not on file Legal Sex Male 7:30 PM CDT Gender Identity Not on file Sexual Orientation Not on file documented as of this encounter Miscellaneous Notes * Cerner Conversion Note - Brennan Stafford MD - 11/26/2018 6:28 PM CDT Patient Education Materials Follows: Groin Site Care Refer to this sheet [...] questions after your procedure. HOME CARE INSTRUCTIONS ? You may shower 24 hours after the procedure. Remove the bandage (dressing ) and gently wash the site with plain soap and water. Gently pat the site dry. ? Do not apply powder or lotion to the site. ? Do not sit in a bathtub, swimming pool, or whirlpool for 5 to 7 days. ? No bending, squatting, or lifting anything over 10 pounds (4.5 kg) as directed by your caregiver. ? Inspect the site at least twice daily. ? Do not drive home if you are discharged the same day of the procedure. Have someone else drive you. ? You may drive 24 hours after the procedure unless otherwise instructed by your caregiver. What to expect: ? Any bruising will usually fade within 1 to 2 weeks. ? Blood that collects in the tissue (hematoma ) may be painful to the touch. It should usually decrease in size and tenderness within 1 to 2 weeks. SEEK IMMEDIATE MEDICAL CARE IF: ? You have unusual pain at the groin site or down the affected leg. ? You have redness, warmth, swelling, or pain at the groin site. ? You have drainage (other than a small amount of blood on the dressing). ? You have chills. ? You have a fever or persistent symptoms for more than 72 hours. ? You have a fever and your symptoms suddenly get worse. ? Your leg becomes pale, cool, tingly, or numb. ? You have heavy bleeding from the site. Hold pressure on the site. Document Released: 06/16/2011 Document Revised: 08/05/2012 Document Reviewed: 06/16/2011 ExitCare? Patient Information ?2014 Contents First. Pharmacology Moderate Conscious Sedation, Adult, Care After These [...] you are awake and alert. ??? Take xcbo-lvo-movklxi and prescription medicines only as told by [...] 03/04/2014 Document Revised: 10/16/2016 Document Reviewed: 09/02/2016 [employer] Interactive Patient Education ? 2019 [employer]. Radiology Coronary Angiogram A coronary angiogram is an [...] including vitamins, herbs, eye drops, creams, and koec-dvy-glwknsj medicines. ??? Any problems you or family [...] Up to 2 hours before the procedure ? you may continue to drink clear liquids, such as water, clear fruit juice, black coffee, and plain tea. Eating and drinking restrictions Follow instructions from your health care provider about eating and drinking, which may include: ??? 8 hours before the procedure ? stop eating heavy meals or foods such as meat, fried foods, or fatty foods. ??? 6 hours before the procedure ? stop eating light meals or foods, such as toast or cereal. ??? 2 hours before the procedure ? stop drinking clear liquids. General instructions ??? [...] 11/18/2003 Document Revised: 02/23/2017 Document Reviewed: 02/23/2017 [employer] Interactive Patient Education ? 2019 [employer] documented in this encounter Plan of Treatment Not on file documented as of this encounter Visit Diagnoses Not on filedocumented in this encounter
--- OUTSIDE RECORDS SUMMARY | 2024-12-16 08:19 | XMS_ITS | Encounter Summary ---
Author Organization [employer] ([place], [place], [place], [place]) Address [address] [place] [address] Care Team Providers Care Salesperson China And Glassware Name Role Phone Unavailable Primary Care Provider Unavailabl e Encounter Details Date Type Department Care Team (Late st Contact Info) Description 11/26/2018 Transcribed Document [facility] [place] [address] [place] [address] ProviderBrennan MD [address] [place] [address] Social History Tobacco Use Types Packs/Day Years Used Date Smoking Tobacco: Never Assessed Sex and Gender Information Value Date Recorded Sex Assigned at Not on file Legal Sex Male 7:30 PM CDT Gender Identity Not on file Sexual Orientation Not on file documented as of this encounter Miscellaneous Notes * Cerner Conversion Note - Historical ProviderMD - 11/26/2018 6:30 PM CDT Nursing Discharge Summary Entered On: 11/26/2018 18:30 EDT Performed On: 11/26/2018 18:30 EDT by OVI LAM RN Discharge Documentation Patient Disposition, General : Discharge Discharge To : Home with ambulatory/outpatient follow-up Mode Of Departure, General Discharge : Private vehicle, Wheelchair Accompanied By, Discharge : Son IV Discontinued : Yes Discharge Instructions Reviewed With, Opportunity For Questions Given : Patient, Son Patient Education Completed : Yes Teaching Method : Explanation, Printed materials Teaching Evaluation : Returns demonstration, Verbalizes understanding OVI LAM RN - 11/26/2018 18:30 EDT documented in this encounter Plan of Treatment Not on file documented as of this encounter Visit Diagnoses Not on filedocumented in this encounter
--- OUTSIDE RECORDS SUMMARY | 2024-12-16 08:19 | XMS_ITS | Encounter Summary ---
Author Organization [facility] Address [address] [place] [address] Care Team Providers Care Day Haul Or Farm Charter Bus Driver Name Role Phone Larisa Echevarria MD Unavailable [phone] Encounter Details Date Type Department Care Team (Latest Contact Info) Description 11/13/2024 Results Follow-Up [facility] [address] [place] [address] Larisa Echevarria MD [address] [place] [address] URIC ACID-QUEST, RENAL FUNCTION PANEL-QUEST [...] Visit [facility] [address] [place] [address] Larisa Echevarria MD [address] [place] [address] documented as of this encounter Visit Diagnoses Not on filedocumented in this encounter Care Teams Day Ha[employer] Farm Charter Bus Driver Relationship Specialty Start Date End Date Larisa Echevarria MD [address] [place] [id number] Internal Medicine-Rheumatology 02/19/23 documented as of this encounter
--- OUTSIDE RECORDS SUMMARY | 2024-12-16 08:19 | XMS_ITS | Encounter Summary ---
Author Organization [employer] ([place], [place], [place], [place]) Address [address] [place] [address] Care Team Providers Care Personnel Generalist Manager Name Role Phone Unavailable Primary Care Provider Unavailabl e Encounter Details Date Type Department Care Team (Late st Contact Info) Description 11/26/2018 Transcribed Document [facility] [place] [facility] [place] [address] ProviderBrennan MD [address] [place] [phone] Social History Tobacco Use Types Packs/Day Years Used Date Smoking Tobacco: Never Assessed Sex and Gender Information Value Date Recorded Sex Assigned at Not on file Legal Sex Male 7:30 PM CDT Gender Identity Not on file Sexual Orientation Not on file documented as of this encounter Miscellaneous Notes * Cerner Conversion Note - Historical ProviderMD - 11/26/2018 7:22 PM CDT Nursing Discharge Summary Entered On: 11/26/2018 19:23 EDT Performed On: 11/26/2018 19:22 EDT by OVI LAM credit review officer Documentation Discharge Date/Time : 11/26/2018 19:35 EDT Patient Disposition, General : Discharge Discharge To : Home with ambulatory/outpatient follow-up Mode Of Departure, General Discharge : Private vehicle, Wheelchair Accompanied By, Discharge : Son IV Discontinued : Yes Personal Belongings With Patient : Yes Discharge Instructions Reviewed With, Opportunity For Questions Given : Patient, Son Patient Education Completed : Yes Teaching Method : Explanation, Printed materials Teaching Evaluation : Returns demonstration, Verbalizes understanding OVI LAM, RN - 11/26/2018 19:22 EDT documented in this encounter Plan of Treatment Not on file documented as of this encounter Visit Diagnoses Not on filedocumented in this encounter
--- OUTSIDE RECORDS SUMMARY | 2024-12-16 08:19 | XMS_ITS | Clinical Summary ---
Author Organization [facility] Address [address] [place] [address] Phone Care Team Providers Care Business Office Associate Name Role Phone Larisa Echevarria MD Unavailable [phone] Allergies No known active allergies Medications [...] Department Care Team Description 11/13/2024 Results [facility]Up [facility] [address] [place] [address] Larisa Echevarria MD URIC ACID-QUEST, RENAL FUNCTION PANEL-QUEST 11/12/2024 2:30 PM EDT Office Visit [facility] [address] [place] [address] Larisa Echevarria MD 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); Encounter for long-term (current) use of medications; Localized osteoarthritis of left shoulder 11/12/2024 Orders Only [facility] [address] [place] [address] Larisa Echevarria MD from Last 3 Months [...] Office Visit [facility] [address] [place] [address] Larisa Echevarria MD [address] [place] [address] Health Maintenance Due Date Last [...] Echevarria MD QUEST-CHEMISTRY ORDERABLES Fi nal Result [facility] [address] [place] [address] * (ABNORMAL) RENAL FUNCTION PANEL-QUEST (11/12/2024 2:34 PM EDT) Pathologist [facility] Glucose 92 65 - 99 mg/dL [facility] [...] ORDERABLES Fi nal Result Performing Organization Address City/[facility]/ZIP Co de Phone Number [facility] [address] [place] [address] from Last 3 Months Insurance Care Teams Business Office Associate Relationship Specialty Start Date End Date Larisa Echevarria MD [address] [place] [address] Internal Medicine-Rheumatology 02/19/23
--- OUTSIDE RECORDS SUMMARY | 2024-12-16 08:19 | XMS_ITS | Referral Summary ---
Author Organization [employer] [facility] ([place], [place], [place], [place]) Address [address] [place] [address] Care Team Providers Care Manager Energy Name Role Phone Unavailable Primary Care Provider [...]
--- OUTSIDE RECORDS SUMMARY | 2024-12-16 08:20 | XMS_ITS | Encounter Summary ---
Author Organization [employer] ([place], [place], [place], [place]) Address [address] [place] [address] Care Team Providers Care Ophthalmic Technician Name Role Phone Unavailable Primary Care Provider Unavailabl e Encounter Details Date Type Department Care Team (Late st Contact Info) Description 11/26/2018 Transcribed Document [facility] [place] Family Medicine [address] [place] [address] ProviderBrennan MD [address] [place], [place] [phone] Social History Tobacco Use Types Packs/Day Years Used Date Smoking Tobacco: Never Assessed Sex and Gender Information Value Date Recorded Sex Assigned at Not on file Legal Sex Male 7:30 PM CDT Gender Identity Not on file Sexual Orientation Not on file documented as of this encounter Miscellaneous Notes * Cerner Conversion Note - Historical ProviderMD - 11/26/2018 1:27 PM CDT Pre Procedure Adult Entered On: 11/26/2018 13:31 EDT Performed On: 11/26/2018 13:27 EDT by OVI LAM RN Height and Weight, Clinical Dosing Height Source : Stated Height Entry Format : [place] Height, Feet : 6 ft(Converted to: 183 cm, 72 Inch) Height, Inches : 0 Inch(Converted to: 0 ft 0 Inch, 0.00 cm) Clinical Height : 182.88 cm Weight Source : Standing scale Weight Entry Format : [place] Clinical Dosing Weight : 113.64 kg Weight, Pounds : 250 lb Body Surface Area (BSA) : 2.34 m2 Body Mass Index : 34 kg/m2 (HI) [place] Body Weight : 77 kg OVI LAM RN - 11/26/2018 13:27 EDT Health Histories Smoking Status : Former smoker, quit more than 30 days ago Smokeless Tobacco Status : Former smokeless tobacco user, quit more than 30 days ago OVI LAM RN - 11/26/2018 13:27 EDT Social History (As Of: 11/26/2018 13:31:03 EDT) Tobacco: Use in Last 12 Months: No. Smoking Status Former smoker. Years of Use: 32. Packs/Tins Daily: 1. Last Used: 2003. (Last Updated: 01/08/2013 12:22:56 EDT by CYN BONILLA RN) Alcohol: Use in Last 12 Months: No. (Last Updated: 01/08/2013 12:21:57 EDT by CYN BONILLA, KAMERON) Exercise: Comments: 01/08/2013 12:22 - CYN BONILLA RN: does not exercise regularly (Last Updated: 01/08/2013 12:22:22 EDT by CYN BONILLA RN) Infectious Disease History Infectious Disease History : None, Chicken pox/Shingles, Measles, Mumps Fever/Chills Last 48 Hours : No Travel To Regions with Travel Advisories : No Travel Outside [place] Within Last 30 Days : No Contact With Traveler to Advisory Region : No Tuberculosis Symptoms : None OVI LAM RN - 11/26/2018 13:27 EDT Anesthesia/Transfusion History Family History of Anesthesia Reaction : No prior transfusion(s) Transfusion History : Prior anesthesia without reaction Family History of Anesthesia Reaction : None OVI LAM RN - 11/26/2018 13:27 EDT Functional Assessment Living Situation : Home Patient Lives With : Alone Current Home Treatments : None OVI LAM RN - 11/26/2018 13:27 EDT Psychosocial History Chronic/Terminal Illness w/Freq Visits : No Currently in Unsafe Situation : No Tried to Harm Yourself in the Past? : No Thoughts of Harming/Killing Yourself : No OVI ALM RN - 11/26/2018 13:27 EDT Advance Directive Patient has Advance Directive *Q : Yes, Advance Directive not with the patient Advance Directive Type : Living will Copy Advance Directive Verified/on Chart : No OVI LAM RN - 11/26/2018 13:27 EDT General Info Support Person/Patient Ink Blender : Yes Support Person/Pt Rep Name : amandeep son Want Family/Rep/Phys Notified of Admit : No Emergency Contact #1 : na Emergency Contact #1 Phone Number : na Emergency Contact #1 Relationship : na Emergency Contact #2 : na Emergency Contact #2 Phone Number : na Emergency Contact #2 Relationship : na Primary Language : Russian Communication Barrier : None OVI LAM RN - 11/26/2018 13:27 EDT Sleep Apnea Risk Assmt Hx of Obstructive Sleep Apnea Diagnosis : No Snore Loudly : No Tired, Fatigued, or Sleepy During Day : Yes Observed Stopping Breathing During Sleep : No Have/Are Being Treated for Hypertension : Yes BMI Greater Than 35 kg/m2 : Yes Age over 50 Years Old : Yes Neck Circumference Greater Than 40 cm : Yes Gender Male : Yes STOP-BANG Sleep Apnea Risk Level Score : 6 OVI LAM RN - 11/26/2018 13:27 EDT Shar Scale Shar Sensory Perception : No impairment Shar Moisture : Rarely moist Shar Activity : Walks frequently Shar Mobility : No limitation Shar Nutrition : Excellent Shar Friction and Shear : No apparent problem Shar Score : 23 OVI LAM RN - 11/26/2018 13:27 EDT Fall Risk Scales ABCs Fall Injury Risk Identification : None KOHLER Hx Falls Immediate/Within 3 Months : Yes Kohler Secondary Diagnosis : No KOHLER Use of Ambulatory Aid : None KOHLER IV Therapy or IV Access : No Kohler Gait/Transferring : Normal, bedrest, immobile Kohler Mental Status : Oriented to own ability Kohler Fall Risk Score : 25 KOHLER Fall Scale Risk Level : 0-24 Low Risk [place] Fall Interventions : Bed in low position, Call device within reach, Non-slip footwear, Wheels locked OVI LAM RN - 11/26/2018 13:27 EDT Valuables and Belongings Valuables and Belongings : Clothing Clothing : Common streetwear Clothing Disposition : Bedside OVI LAM RN - 11/26/2018 13:27 EDT documented in this encounter Plan of Treatment Not on file documented as of this encounter Visit Diagnoses Not on filedocumented in this encounter
--- OUTSIDE RECORDS SUMMARY | 2024-12-16 08:20 | XMS_ITS | Encounter Summary ---
Author Organization [employer] ([place], [place], [place], [place]) Address [address] [place] [address] Care Team Providers Care Tool Clerk Name Role Phone Unavailable Primary Care Provider Unavailabl e Encounter Details Date Type Department Care Team (Late st Contact Info) Description 11/26/2018 Transcribed Document [facility] [place] Family Medicine [facility] [place] [address] ProviderBrennan MD [address] [place], [place] [phone] Social History Tobacco Use Types Packs/Day Years Used Date Smoking Tobacco: Never Assessed Sex and Gender Information Value Date Recorded Sex Assigned at Not on file Legal Sex Male 7:30 PM CDT Gender Identity Not on file Sexual Orientation Not on file documented as of this encounter Miscellaneous Notes * Cerner Conversion Note - Historical ProviderMD - 11/26/2018 7:21 PM CDT Event Note Entered On: 11/26/2018 19:22 EDT Performed On: 11/26/2018 19:21 EDT by OVI LAM RN Event Note Event Date/Time : 11/26/2018 19:10 EDT Description of Event : Numbness subsiding. Up ambulaing in jenkins and to bathroom. Tolerated well. OVI LAM, KAMERON - 11/26/2018 19:21 EDT documented in this encounter Plan of Treatment Not on file documented as of this encounter Visit Diagnoses Not on filedocumented in this encounter
== END 2024-12-16 23:59 | disposition home or self-care (01) ==
LOC: RAD 08:14
PROVIDERS: PCP Family Medicine; Visit Provider Family Medicine
DX: M48.061 Spinal stenosis, lumbar region without neurogenic claudication (principal); M48.07 Spinal stenosis, lumbosacral region; M99.73 Connective tissue and disc stenosis of intervertebral foramina of lumbar region
CPT/HCPCS: 72131

== ENCOUNTER 2024-12-29 08:57 | Outpatient (POV) | payer MEDICARE, SELFPAY ==
--- OUTSIDE RECORDS SUMMARY | 2024-09-23 09:30 | XMS_ITS ---
Author Organization [facility] Address [address] [facility] [address] [id number] Care Team Providers Care Seam Stayer Name Role Phone Jaelyn Pacheco Primary Care Provider [phone] Allergies No Known Allergies REASON FOR VISIT [...] 09/23/2024 Encounters Encounter Location Date Provider Diagnosis [facility] [address] [facility] [address] [facility] [address] [place] [id number] 09/23/2024 Jaelyn Monaco Tara Type 2 diabetes mellitus without complication, unspecified whether custodial insulin use E11.9 Assessments Encounter Date Diagnosis (ICD Code) Assessment Notes Treatment Notes Treatment Clinical Notes Section Notes 09/23/2024 Type 2 diabetes mellitus without complication, unspecified whether custodial insulin use (ICD-10 - E11.9) He will [...] diabetes mellitus wit hout complication, unspecified whether custodial insulin use He will remain off work this week. Next Appt Details Follow Up: prn, Reason: Provider Name:Jaelyn Billingsley, 02/12/2025 10:00:00 AM, [address] [facility], [address], [place], [phone], Progress Notes * TY ANTONY LDOB:[birth year] (69 yo M)Acc No.[id number]:09/23/2024 Progress Notes Patient: TY GLORIA Provider: Jaelyn Pacheco M.D. :1955 A ge:68 Y S ex:Male Date:09/23/2024 Address:[address] [place], [place] [phone] Subjective: * Chief Complaints: * 1 . [...] Procedure: H for heart rate low 02-03, [facility]-chest pain 12/23/12. * Family History: F ather: [...] 2 diabetes mellitus without complication, unspecified whether custodial insulin use - E11.9 (Primary) Plan: * Treatment: * Procedure Codes: G 2211 Complex e/m visit add on, G8752 MOST RECENT SYSTOLIC BP < 140MM HG, G8754 MOST RECENT DIASTOLIC BP < 90MM HG, 3044F HG A1C LEVEL LT 7.0% * Follow Up: p rn * Images: Billing Information: * Visit Code: 10014 Office Visit, Est Pt., Level 3. * Procedure Codes: G2211 Complex e/m visit add on. G8752 MOST RECENT SYSTOLIC BP < 140MM HG. G8754 MOST RECENT DIASTOLIC BP < 90MM HG. 3044F HG A1C LEVEL LT 7.0%. * Electronic signature of Jaelyn Pacheco MD on 12/29/2024 at 05:04 AM EDT Sign off status: Pending * Provider: Jaelyn Pacheco M.D. Date: 0 09/23/2024 Generated for Roman kraus/Nico/Jaymeitting on: 0 12/29/2024 05:04 AM EDT
--- OUTSIDE RECORDS SUMMARY | 2024-11-12 14:30 | XMS_ITS | Encounter Summary ---
Author Organization [facility] Address [address] [place] [address] Care Team Providers Care Solar Manufacturer'S Representative Name Role Phone Larisa Echevarria MD Unavailable [phone] Reason for Visit * Reason Comments Gout Encounter Details Date Type Department Care Team (Latest Contact Info) Description 11/12/2024 2:30 PM EDT Office Visit [facility] [address] [place] [address] Larisa Echevarria MD [address] [place] [address] Idiopathic chronic gout of multiple [...] Visit [facility] [address] [place] [address] Larisa Echevarria MD [address] [place] [address] Scheduled Orders Name Type Priority [...] 09/22/2024 added in this encounter Care Teams Solar Manufacturer'S Representative Relationship Specialty Start Date End Date Larisa Echevarria MD [address] [place] [address] Internal Medicine-Rheumatology 02/19/23 documented as of this encounter
--- OUTSIDE RECORDS SUMMARY | 2024-12-02 12:45 | XMS_ITS ---
Author Organization [facility] [address] [facility] [address] [phone] Care Team Providers Care Teacher Vocational Training Name Role Phone Jaelyn Pacheco Primary Care Provider Allergies No Known Allergies Results Component Value Reference Range Notes X ray : Spine, lumbosacral Reviewed date:12/04/2024 08:42:33 AM Interpretation: Performing Lab: Notes/Report: REASON FOR VISIT Issues w/ Hips Medications Medication SIG (Take, Route, Frequency, Duration) Notes Start Date End Date Status Levothyroxine Sodium 50 MCG 1 tablet in the morning on an empty stomach Orally Once a day; Duration: 90 days Active Ozempic (1 MG/DOSE) 4 MG/3ML inject 1 mg Subcutaneous once a week 05/29/2024 Not-Taking traMADol HCl 50 MG 1 tab Orally 4 times a day prn 12/02/2024 Active Lisinopril 5 MG 1 tablet Orally twic e a day; Duration: 90 days Active Ondansetron HCl 4 MG 1 tablet Orally thr ee times a day as needed 09/22/2024 Not-Taking Leqvio 284 MG/1.5ML as directed Subcutaneous Not-Taking Farxiga 10 MG 1 tablet Orally Once a day Not-Taking predniSONE 10 MG 1 tab tid x 5 days t hen 1 tab bid x 5 days then 1 tab qd x 5 days Orally 09/09/2024 Not-Taking Furosemide 40 MG 1 tablet Orally Once a day; Duration: 90 days Active Zetia 10 MG TAKE 1 TABLET EVERY DAY Not-Taking Aspirin Adult Low Dose 81 MG 1 tab(s) orally QD Active Bisoprolol Fumarate 10 MG 1 tab(s) orall y once a day Active Nitroglycerin 0.4 MG 1 tab(s) sublingual ly every 5 minutes x 3 Not-Taking Naproxen DR 500 MG TAKE 1 TABLET TWICE DAILY; Duration: 90 Active Triamcinolone Acetonide 0.1 % 1 application Externally Two times a day 02/14/2024 Active Ranolazine ER 500 MG 1 tablet Orally Twi ce a day; Duration: 30 day(s) Active Potassium Chloride ER 10 MEQ 1 tab(s) orally once a day Active Pantoprazole Sodium 40 MG TAKE 1 TABLET EVERY DAY; Duration: 90 Active Isosorbide Mononitrate ER 30 MG 1 tablet in the morning Orally Once a day; Duration: 30 day(s) Active Allopurinol 300 MG 1 tablet Orally Once a day; Duration: 30 day(s) Active Problems Problem Type SNOMED Code ICD Code Onset Dates Problem Status W/U Status Risk Notes Problem Spinal stenosis of lumbosacral region (M48.07) Active confirmed Vital Signs Blood pressure systolic 120 mm Hg 12/03/19 25 Blood pressure diastolic 72 mm Hg 025 Heart Rate 60 /min 12/02/2024 Height 70.50 in 12/02/2024 Weight 277.6 lbs 12/02/2024 BMI 39.26 kg/m2 12/02/2024 Encounters Encounter Location Date Provider Diagnosis [facility] [address] [facility] [address] [place] [id number] 12/02/2024 Jaelyn Pacheco Primary generalized (osteo)arthritis M15.0 and Spinal stenosis of lumbosacral region M48.07 Assessments Encounter Date Diagnosis (ICD Code) Assessment Notes Treatment Notes Treatment Clinical Notes Section Notes 12/02/2024 Primary generalized (osteo)arthritis (ICD-10 - M15.0) 12/02/2024 Spinal stenosis of lumbosacral region (ICD-10 - M48.07) Will obtain plain x-rays of the lumbar spine but will likely need advanced imaging for definitive diagnosis. Plan Of Treatment Medication Medication Name Sig Start Date Stop Date Notes traMADol-Acetaminophen 37.5- 325 MG 1 tab(s) orally qid prn 06/09/2024 traMADol HCl 50 MG 1 tab Orally 4 times a day prn 12/02/2024 Treatment Notes Assessment Notes Spinal stenosis of lumbosacral region Wi ll obtain plain x-rays of the lumbar spine but will likely need advanced imaging for definitive diagnosis. Next Appt Details Follow Up: via phone to repo rt test results, Reason: Provider Name:Jaelyn Ho et, 02/12/2025 10:00:00 AM, [address], [address], [place], [place], [id number], Progress Notes * TY ANTONY LDOB:[birth year] (69 yo M)Acc No.[id number]:12/02/2024 Progress Notes Patient: TY GLORIA Provider: Jaelyn Pacheco M.D. :1955 A ge:69 Y S ex:Male Date:12/02/2024 Address:[address] [place], [place] [id number] Subjective: * Chief Complaints: * 1 . Issues w/ Hips. * HPI: H ip/Thigh: Aiden returns with ongoing complaints of hip pain. He now reports bilateral hip pain mostly radiating to the buttock areas and down the back of his thighs. He has had no recent injury. It is worse if he has been sitting for a period of time and then stands to walk. He also keeps him awake at night sometimes. No bowel or bladder dysfunction. He gets relief with Ultram but not currently covered by his insurance. He continues on his naproxen. * ROS: D ERMATOLOGY: no R tameka. n o H dayton. G ASTROENTEROLOGY: no N ausea. n o V omiting. n o D iarrhea.? U ROLOGY: no D ifficulty urinating. n o B lood in urine. * Medical History: C oronary Artery Disease, [...] Procedure: H for heart rate low 02-03, [facility]-chest pain 12/23/12. * Family History: F [...] TAKE 1 TABLET EVERY DAY , Taking Triamcinolone Acetonide 0.1 % Cream 1 application Externally Two times a day , Taking Naproxen DR 500 MG Tablet Delayed Release TAKE 1 TABLET TWICE DAILY , Taking traMADol-Acetaminophen 37.5-325 MG Tablet 1 tab(s) orally qid prn , Taking Aspirin Adult Low Dose 81 MG Tablet Delayed Release 1 tab(s) orally QD , Taking Bisoprolol Fumarate 10 MG Tablet 1 tab(s) orally once a day , Taking Furosemide 40 MG Tablet 1 tablet Orally Once a day , Taking Lisinopril 5 MG Tablet 1 tablet Orally twice a day , Taking Levothyroxine Sodium 50 MCG Tablet 1 tablet in the morning on an empty stomach Orally Once a day , Not-Taking Nitroglycerin 0.4 MG Tablet Sublingual 1 tab(s) sublingually every 5 minutes x 3 , Not-Taking Zetia 10 MG Tablet TAKE 1 TABLET EVERY DAY , Not-Taking Leqvio 284 MG/1.5ML Solution Prefilled Syringe as directed Subcutaneous , Not-Taking Farxiga 10 MG Tablet 1 tablet Orally Once a day , Not-Taking predniSONE 10 MG Tablet 1 tab tid x 5 days then 1 tab bid x 5 days then 1 tab qd x 5 days Orally , Not-Taking Ondansetron HCl 4 MG Tablet 1 tablet Orally three times a day as needed , Not-Taking Ozempic (1 MG/DOSE) 4 MG/3ML Solution Pen-injector inject 1 mg Subcutaneous once a week , Discontinued Aquaphor Adv Therapy Feet - Ointment as directed Externally Two times a day , Medication List reviewed and reconciled with the patient * Allergies: N .K.D.A. Objective: * Vitals: W t: 277.6, Temp: 97.6, BP: 120/72, HR: 60, Nurse: pe, Ht: 70.50, BMI:39.26. * Examination: G eneral Examination: H e moves slowly from the chair to standing position. There is no bony tenderness of the lumbar spine or SI joints. Slight increase in the normal lumbar lordosis. Terminal lumbar flexion is limited by pain. Strength in lower extremities is normal. Hamstrings are tight. Assessment: * Assessment: 1. S judah stenosis of lumbosacral region - M48.07 (Primary) 2 . P rimary generalized (osteo)arthritis - M15.0 Plan: * Treatment: 2. P rimary generalized (osteo)arthritis Stop traMADol-Acetaminophen Tablet, 37.5-325 MG, 1 tab(s), orally, qid prn; S tart traMADol HCl Tablet, 50 MG, 1 tab, Orally, 4 times a day prn, 30. * Imaging: * I maging: X ray : Spine, lumbosacral (Performed Date - 12/03/2024) * Procedure Codes: G 2211 Complex e/m visit add on, 1036F TOBACCO NON-USER, G8783 BP SCR PRFRM RCMDD DEFIND SCR INTVL, G8752 MOST RECENT SYSTOLIC BP < 140MM HG, G8754 MOST RECENT DIASTOLIC BP < 90MM HG * Follow Up: v ia phone to report test results * Images: Billing Information: * Visit Code: 73138 Office Visit, Est Pt., Level 4. * Procedure Codes: G2211 Complex e/m visit add on. 1036F TOBACCO NON-USER. G8783 BP SCR PRFRM RCMDD DEFIND SCR INTVL. G8752 MOST RECENT SYSTOLIC BP < 140MM HG. G8754 MOST RECENT DIASTOLIC BP < 90MM HG. * Electronic signature of Jaelyn Pacheco MD on 12/29/2024 at 05:04 AM EDT Sign off status: Pending * Provider: Jaelyn Pacheco M.D. Date: 12/02/2024 Generated for Marileei nayana/Nico/eTransmitting on: 0 12/29/2024 05:04 AM EDT History and Physical Notes * HPI (History of Present Illness) Category Sub-Category Detail Notes Category Not es Hip/Thigh He gets relief with Ultram but not currently covered by his insurance. He continues on his naproxen. Examination Category Sub-Category Detail Notes Category Not es General Examination He moves slowly from the chair to standing position. There is no bony tenderness of the lumbar spine or SI joints. Slight increase in the normal lumbar lordosis. Terminal lumbar flexion is limited by pain. Strength in lower extremities is normal. Hamstrings are tight.
--- OUTSIDE RECORDS SUMMARY | 2024-12-04 04:26 | XMS_ITS ---
Author [facility] [address] [facility] [address] [facility] [address] [place] [id number] Care Team Providers Care Vice President Of Procurement Name Role Phone Jaelyn Pacheco Primary Care Provider REASON FOR VISIT Test Results/Controlled Rx Medications [...] Encounter Location Date Provider Diagnosis Sandra [address] [facility] [address] [facility] [address] [place] [id number] 12/04/2024 Jaelyn Pacheco Spinal stenosis of lumbosacral [...] 02/12/2025 10:00:00 AM, [address] [facility], [address], [place], [place], [phone], Progress Notes * TY ANTONY LDOB:[birth year] (69 yo M)Acc No.[id number]:12/04/2024 Patient: TY GLORIA :1955 A ge:69 Y S ex:Male Address:[address] [place] [phone] * Refills Start traMADol HCl Tablet, 50 [...] Villalba 12/04/2024 09:2 6:53 AM EDT > auth#[id number]; valid 12/04/2024-01/31/2025; CPT code 50973; faxed to Schedulingif patient does not cotton picking machine operator the phone, please leave a voicemail 3.?Others? Start traMADol HCl Tablet, 50 MG, 1 tab, Orally, 4 times a day prn, 30.?? * Procedure Codes: * true * Date: Generated for Roman kraus/Nico/eTransmitting on: 0 12/29/2024 05:04 AM EDT
--- OUTSIDE RECORDS SUMMARY | 2024-12-29 09:07 | XMS_ITS | Clinical Summary ---
Author Organization [employer] [facility] ([place], [place], [place], [place]) Address [address] [place] [address] Care Team Providers Care Mica Miner Blasting Name Role Phone Unavailable Primary Care Provider [...]
--- OUTSIDE RECORDS SUMMARY | 2024-12-29 09:07 | XMS_ITS | Clinical Summary ---
Author Organization [facility] Address [address] [place] [address] Care Team Providers Care Hotel Engineer Name Role Phone Estuardo Pacheco MD Primary Care Provider [phone] Social History Tobacco Use Types Packs/Day Years [...] EST Appointment [facility] [address] [place] [address] Health Maintenance Due Date Last Done Comments [facility]-Depression Screening 1955 [facility]-Diabetes: Hemoglobin A1C 1955 [facility]-Hepatitis C Screening 1955 [facility]-Medicare Annual Wellness (AWV) 1955 [facility]-Infant/Child/Adol SDOH Screenings 1955 Diabetes: Dental Exam 10/10/1963 [facility]- SDOH Screenings 10/10/1971 [facility]-Adult SDOH Screenings 10/10/1971 CT Colonography 1998 Colonoscopy 1998 FIT-DNA 1998 FIT 1998 FOBT 1998 Sigmoidoscopy 1998 [facility]-Colorectal Cancer Screening 1998 [facility]-Zoster Vaccines (1 of 2) 10/10/2003 [id number] Vaccine ( season) 2024 03/17/2022, 03/30/2021, 08/19/2020, [...] complete this topic Insurance MEDICARE Care Teams Hotel Engineer Relationship Specialty Start Date End Date Estuardo Pacheco MD [address] [place] [id number] PCP - General 10/08/20
--- OUTSIDE RECORDS SUMMARY | 2024-12-29 09:07 | XMS_ITS | Patient Health Record ---
Author Organization [facility] Address [address] [facility] [address] [id number] Care Team Providers Care Processing Tech Name Role Phone Jaelyn Pacheco Primary Care Provider Fransisco Hoyos Unavailable [phone] Allergies No Known Allergies Results Component Value Reference Range Notes X ray : Spine, lumbosacral Reviewed date:12/04/2024 08:42:33 AM Interpretation: Performing Lab: Notes/Report: CT Scan : Spine, lumbosacral , without contrast Reviewed date:12/23/2024 08:57:03 AM Interpretation:significant stenosis and neuroforaminal narrowing Performing Lab: Notes/Report: significant stenosis and neuroforaminal narrowing CBC Venipuncture (in house) Reviewed date:08/19/2024 08:51:33 [...] - 38 platlet 230 100 - 400 H-Glycohemoglobin A1C Reviewed date:02/18/2024 01:13:49 PM Interpretation:6.1 Performing Lab: Notes/Report: HGBA1C 6.1 4.0-6.0 % < 6% Non-Diabetic Level < 7% Controlled Diabetic Level > 8% Poorly Controlled Diabetic Level H-CMP Reviewed date:02/18/2024 01:13:49 PM Interpretation:Cr 1.3, [...] AGRATIO 1.8 1.1-1.8 ALP 60 38-126 U/L H-Lipid Panel Reviewed date:02/18/2024 01:13:49 PM Interpretation:trigs 272, chol 236, dldl 137, vldl 54, chol/hdl 5.6 Performing Lab: Notes/Report: Patient Fasting? Y TRIG 272 30-150 mg/dl CHOL 236 140-200 mg/dl DLDL 136.77 100-129 mg/dL VLDL 54 0-40 mg/dL HDL 42 40-60 mg/dl CHLHDL 5.6 1-3.5 H-TSH Reviewed date:02/18/2024 01:13:49 PM Interpretation:Normal Performing Lab: Notes/Report: TSH 2.15 0.465-4.68 uIU/mL Covid test (in house) Reviewed date:01/15/2024 10:17:25 [...] AM Interpretation: Performing Lab: Notes/Report: results Neg Glycohemoglobin A1c (in hous e) Reviewed date:08/19/2024 08:51:33 AM Interpretation:5.5% Performing Lab: Notes/Report: 5.5% glycohemoglobin 5.5% 5 - 6.5 % P-Comprehensive Metabolic Pa fito (CMP) Reviewed date:08/19/2024 08:51:33 AM Interpretation: Performing Lab: Notes/Report: Test performed by [facility] [address] [place], [place] [address] [place] , [address], [place] [address] Brad Sun MD, Book Mender CLIA: [id number] Sodium 140 135-145 mmol/L Potassium 4.7 3.5-5.3 [...] Interpretation: Performing Lab: Notes/Report: Test performed by [facility] [address] [place], [place] [address] [place] , [address], [place] [address] Brad Sun MD, Book Mender CLIA: [id number] PSA 0.23 <4.00 ng/mL Please note this is an ultrasensitive PSA assay with a lower limit of detection of 0.014 ng/mL. This test is performed by the Lyle ECLIA methodology. Values obtained with different assay methods or kits cannot be directly compared. P-TSH Reviewed date:08/19/2024 08:51:33 AM Interpretation: Performing Lab: Notes/Report: Test performed by [facility] [address] [place] [address] , [address], [place] [address] Brad Sun MD, Book Mender CLIA: [id number] TSH 1.91 0.43-5.25 mU/L P-Microalbumin/Creatinine, R andom Urine Sample Reviewed date:08/19/2024 08:51:33 AM Interpretation: Performing Lab: Notes/Report: Test performed by [facility] [address] [place] [address] , [address], [place] [address] Brad Sun MD, Book Mender CLIA: [id number] Albumin/Creatinine Ratio, Urine <24.3 0-30 ug/m g [...] Status Risk Notes Problem Gastroesophageal reflux disease (107709464) GERD (gastroesophageal reflux disease) (K21.9) Active confirmed Problem Coronary arteriosclerosis (72782236) ASCVD (arteriosclerotic cardiovascular disease) (I25.10) Active confirmed Problem Hypertension (33733860) HTN (hypertension) (I10) Active confirmed Problem Hyperuricemia (87570365) Hyperuricemia (E79.0) Active confirmed Problem Sick sinus syndrome (89604809) Sick sinus syndrome (I49.5) Active confirmed Problem Male erectile disorder (025744853) Male erectile disorder (F52.21) Active confirmed Problem Primary generalised osteoarthritis (124619850) Primary generalized (osteo)arthritis (M15.0) Active confirmed Problem Chronic kidney disease (disorder) (218859394) Chronic kidney disease (CKD) (N18.9) Active confirmed Problem Chronic pain (06923704) Other chronic pain (G89.29) Active confirmed Problem Cardiac pacemaker in situ (910287053) Presence of cardiac pacemaker (Z95.0) Active confirmed Problem Male erectile disorder (644329846) Male erectile disorder (N52.9) Active confirmed Problem Acquired hypothyroidism (450218221) Acquired hypothyroidism (E03.9) Active confirmed Problem Spinal stenosis of lumbosacral region (394041754) Spinal stenosis of lumbosacral region (M48.07) Active confirmed Problem Arthropathy of lumbar facet joint (disorder) (735485891) Facet arthropathy, lumbar (M46.96) Active confirmed Problem Obstructive sleep apnea syndrome (53882626) GEORGINA (obstructive sleep apnea) (G47.33) Active confirmed Problem Obese class II (367643324130741) BMI 38.0-38.9,adult (Z68.38) Active confirmed Problem Body mass index 40+ - morbidly obese (715209589) BMI 40.0-44.9, adult (Z68.41) Active confirmed Problem Chronic gouty arthritis (87288653) 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) Active confirmed Problem Multiple nodules of lung (004058968) Lung nodules (R91.8) Active confirmed Problem Obese class II (026566751651983) BMI 37.0-37.9, adult (Z68.37) Active confirmed Problem Dyslipidemia (378448795) Dyslipidemia (E78.5) Active confirmed Problem Obese class II (721212474605918) BMI 39.0-39.9,adult (Z68.39) Active confirmed Problem History of nicotine dependence (017343120196695292 ) History of nicotine dependence (Z87.891) Active confirmed Problem Spinal stenosis of lumbar region (07664205) Spinal stenosis of lumbar region, unspecified whether neurogenic claudication present (M48.061) Active confirmed Problem Type II diabetes mellitus without complication (136403660) Type 2 diabetes mellitus without complication, unspecified whether monogram and letter paster insulin use (E11.9) Active confirmed Vital Signs Heart Rate 60 /min 12/02/2024 Blood pressure diastolic 72 mm Hg 12/02/2024 Height 70.50 in 12/02/2024 Blood pressure systolic 120 mm Hg 12/02/2024 Weight 277.6 lbs 12/02/2024 BMI 39.26 kg/m2 12/02/2024 Encounters Encounter Location Date Provider Diagnosis [facility] [address] [facility] [address] [facility] [address] [place] [id number] 01/15/2024 R Carlos Enrique Pacheco Viral syndrome B34.9 and Chronic kidney disease (CKD) N18.9 [facility] [address] [facility] [address] [place] [id number] 02/12/2024 R Carlos Enrique Pacheco Encounter for [...] N52.9 and History of nicotine dependence Z87.891 [facility] [address] [facility] [address] [place] [id number] 08/14/2024 R Carlos Enrique Pacheco Adult general medica l examination Z00.00 ; HTN (hypertension) I10 ; Dyslipidemia E78.5 ; ASCVD (arteriosclerotic cardiovascular disease) I25.10 ; Acquired hypothyroidism E03.9 ; Statin intolerance Z78.9 ; Chronic kidney disease (CKD) N18.9 ; Sick sinus syndrome I49.5 ; GERD (gastroesophageal reflux disease) K21.9 ; Type 2 diabetes mellitus without complication, unspecified whether monogram and letter paster insulin use E11.9 ; Hip pain, right M25.551 ; BMI 39.0-39.9,adult Z68.39 ; Male erectile disorder N52.9 ; Screening for prostate cancer Z12.5 ; History of nicotine dependence Z87.891 ; GEORGINA (obstructive sleep apnea) G47.33 and Presence of cardiac pacemaker Z95.0 [facility] [address] [facility] [address] [place] [id number] 09/09/2024 R Carlos Enrique Pacheco Bilateral hip pain M25.551 and BMI 38.0-38.9,adult Z68.38 [facility] [address] [facility] [address] [place] [id number] 09/23/2024 R Carlos Enrique Pacheco Type 2 diabetes major itus without complication, unspecified whether fdc insulin use E11.9 [facility] [address] [facility] [address] [place] [id number] 12/02/2024 R Carlos Enrique Pacheco Primary generalized (osteo)arthritis M15.0 and Spinal stenosis of lumbosacral region M48.07 [facility] [address] [facility] [address] [place] [id number] 02/14/2024 R Carlos Enrique Pacheco [facility] [address] [place] [id number] 02/15/2024 R Carlos Enrique Tara Chronic kidney disea se (CKD) N18.9 [facility] [address] [place], [place] [id number] 02/18/2024 R Carlos Enrique Tara [facility] [address] [place], [place] [id number] 03/04/2024 Fransisco Jackson Primary generalized (osteo)arthritis M15.0 [facility] [address] [place], [place] [id number] 04/08/2024 R Carlos Enrique Tara [facility] [address] [place], [place] [id number] 05/29/2024 R Carlos Enrique Tara [facility] [address] [place], [place] [id number] 05/29/2024 R Carlos Enrique Tara [facility] [address] [place], [place] [id number] 06/04/2024 R Carlos Enrique Tara [facility] [address] [place], [place] [id number] 06/09/2024 R Carlos Enrique Tara Primary generalized (osteo)arthritis M15.0 [facility] [address] [place], [place] [id number] 08/19/2024 R Carlos Enrique Tara [facility] [address] [place], [place] [id number] 08/22/2024 R Carlos Enrique Tara [facility] [address] [place], [place] [id number] 09/05/2024 R Carlos Enrique Tara Type 2 diabetes major itus without complication, unspecified whether fdc insulin use E11.9 [facility] [address] [place] [id number] 09/22/2024 R Carlos Enrique Tara [facility] [address] [place], [place] [id number] 12/04/2024 R Carlos Enrique Tara Spinal stenosis of lumbosacral region M48.07 ; Facet arthropathy, lumbar M46.96 and Primary generalized (osteo)arthritis M15.0 [facility] [address] [facility] [address] [place], [place] [id number] 12/04/2024 R Carlos Enrique Pacheco [facility] [address] [facility] [address] [place] [id number] 12/08/2024 R Carlos Enrique Pacheco [facility] [address] [facility] [address] [place] [id number] 12/19/2024 R Carlos Enrique Pacheco [facility] [address] [facility] [address] [place], [place] [id number] 12/22/2024 R Carlos Enrique Pacheco Assessments Encounter Date Diagnosis (ICD Code) Assessment Notes Treatment Notes Treatment Clinical Notes Section Notes 09/23/2024 Type 2 diabetes mellitus without complication, unspecified whether monogram and letter paster insulin use (ICD-10 - E11.9) He will remain off work this week. 06/09/2024 Primary generalized (osteo)arthritis (ICD-10 - M15.0) 03/04/2024 Primary generalized (osteo)arthritis (ICD-10 - M15.0) 01/15/2024 Viral syndrome (ICD-10 - B34.9) 01/15/2024 Chronic kidney disease (CKD) (ICD-10 - N18.9) 02/12/2024 HTN (hypertension) (ICD-10 - I10) 02/12/2024 Encounter for immunization (ICD-10 - Z23) 02/15/2024 Chronic kidney disease (CKD) (ICD-10 - N18.9) 08/14/2024 HTN (hypertension) (ICD-10 - I10) 08/14/2024 Adult general medical examination (ICD-10 - Z00.00) Patient instructed to return to office Annually for Annual Wellness Visits to include annual screenings of Pain assessment, Functional Ability assessment, Cognitive Ability assessment, Fall Risk assessment, Depression screening and Bladder control screening. 09/05/2024 Type 2 diabetes mellitus without complication, unspecified whether fdc insulin use (ICD-10 - E11.9) 09/09/2024 Bilateral hip pain (ICD-10 - M25.551) If symptoms persist or recur, will consider MRI. ---Suspect spinal stenosis 09/09/2024 BMI 38.0-38.9,adult (ICD-10 - Z68.38) ---Suspect spinal stenosis 12/02/2024 Primary generalized (osteo)arthritis (ICD-10 - M15.0) 12/02/2024 Spinal stenosis of lumbosacral region (ICD-10 - M48.07) Will obtain plain x-rays of the lumbar spine but will likely need advanced imaging for definitive diagnosis. 12/04/2024 Spinal stenosis of lumbosacral region (ICD-10 - M48.07) 12/04/2024 Facet arthropathy, lumbar (ICD-10 - M46.96) 12/04/2024 Primary generalized (osteo)arthritis (ICD-10 - M15.0) 08/14/2024 Dyslipidemia (ICD-10 - E78.5) 02/12/2024 Dyslipidemia [...] 2 diabetes mellitus without complication, unspecified whether fdc insulin use (ICD-10 - E11.9) 08/14/2024 Hip [...] [address], [place], [place], [id number], Insurance Providers Payer Name Payer Address Payer Phone Subscriber Number Group Number Insured Name Patient Relationship to Insured Coverage Start Date Coverage End Date [employer] (MEDICAR E) [address] [address] [place] [address] [id number] [id number] Self - patient is the [...] -Dr. Whitfield 03/2020 Hospitalization History Reason Date(Month/Year) [facility]-chest pain 12/23/12 [facility] for heart rate low 9-
--- OUTSIDE RECORDS SUMMARY | 2024-12-29 09:07 | XMS_ITS | Encounter Summary ---
Author Organization [employer] ([place], [place], [place], [place]) Address [address] [place] [address] Care Team Providers Care Package Line Operator Name Role Phone Unavailable Primary Care Provider Unavailabl e Encounter Details Date Type Department Care Team (Late st Contact Info) Description 11/26/2018 Transcribed Document [facility] Family Medicine [address] [place] [address] ProviderBrennan MD [address] [place], [place] [phone] Social History Tobacco Use Types Packs/Day Years [...]
--- NOTE | 2024-12-29 09:08 | A.OFFVIS_ITS ---
HPI Data of Consult Patient: new to practice Consult date: 12/29/24 Requesting Physician: Emilee Monreal APRN Primary Care Provider: Estuardo Pacheco MD Reason for consult: Low back pain, bilateral hip pain, bilateral leg pain History of present illness: Mr. Moss is a 69 year old male who presents today as a new patient. He is a referral from Dr. Pacheco's office. Today he rates his pain today a 7 out of 10. He denies any specific trauma or injury that started this. Patient states that it just really seem to get severe in July and has progressed since. Patient states that he has tried oral medications, heat and ice and topicals with minimal changes. Patient is also doing at home exercise and stretching with no additional improvement. He does state that previously he was on a cholesterol medication and he felt like this was making his symptoms worse and causing increased leg pain. He states since stopping that cholesterol medication the sharp pain has significantly improved but does still have numbness that radiates down the back of his legs bilaterally. He does state that it is pretty much a constant achy sensation that does seem worse in the mornings and with walking is worse. He does feel like his legs will give out due to the worsening symptoms and it does interfere with the ability To perform activities of daily living such as cooking and cleaning. Patient denies any prior surgery or injection history for his low back but does state that he did get injections in his neck in the past that did help. Patient does have a pacemaker and did have a CT here with the plan to get a MRI in March at . Patient does state that he would like to not have to do the advanced imaging unless he absolutely needs to due to cost. Patient is currently prescribed tramadol from his primary care. Patient does have significant heart history. His Ryan has been reviewed and is appropriate. Pain at rest (0-10 scale): 7 Has patient had previous pain injection?: No Conservative treatment options previously tried: Home exercise plan (Longer than 12 weeks) cc:: CC: Emilee Monreal APRN [facility] Disclaimer: The information contained in this section may have been updated after the patient was seen, as this information can be updated by other users. Medical History Angina pectoris History of recent fall Pacemaker lead malfunction HLD (hyperlipidemia) HTN (hypertension) Tachy-marsha syndrome Sinus tachycardia Palpitations Dizziness Abnormal Holter monitor finding Blister of second toe, left, infected Obesity (BMI 30-39.9) GERD (gastroesophageal reflux disease) Abnormal EKG CAD (coronary artery disease) Surgical History Cardiac pacemaker in situ Hx of CABG Family History (Updated 12/29/24 @ 09:42 by Jessica Romero, KAMERON) Other Unknown family medical history Social History (Updated 12/29/24 @ 09:53 by Jessica Romero RN) Smoking Status: Former smoker second hand exposure: No alcohol intake: never substance use type: denies use current occupational status: other Travel in the last 8 weeks?: None household members: significant other housing: house current occupational exposures/hazards: No caffeine: Yes Are you experiencing any nausea/vomitting?: No Review of Systems Review of Systems Review of systems:: pertinent systems reviewed and negative unless documented below Review of systems (narrative): Review of Systems: General: No recent weight changes, no fever, no sleep disturbances Respiratory: No cough, no shortness of air, no recurring pulmonary infections Cardiovascular/peripheral vascular: No chest pain, no palpitations, no edema, no shortness of breath Gastrointestinal: No new onset incontinence, normal bowel movements reported Genitourinary: No new onset incontinence Musculoskeletal: Low back pain, bilateral hip pain, bilateral leg numbness Psychiatric: [Normal mood/affect] Neurological: [Denies weakness in extremities], [denies balance issues] Meds Home Medications and Allergies Home Medications ?Medication ?Instructions ?Recorded ?Confirmed ?Type allopurinol 300 mg tablet 300 mg PO DAILY gout 9 12/29/24 History aspirin 81 mg tablet,delayed 81 mg PO DAILY heart heal th 10/10/18 12/29/24 History release (Adult Low Dose Aspirin) furosemide 40 mg tablet (Lasix) 40 mg PO DAILY Fluid 0 10/10/18 12/29/24 History levothyroxine 50 mcg tablet 50 mcg PO DAILY thyroid 12/29/24 History (Synthroid) lisinopril 5 mg tablet 5 mg PO BID High blood press ure 10/10/18 12/29/24 History pantoprazole 40 mg tablet,delayed 40 mg PO DAILY acid reflux 10/10/18 12/29/24 History release (Protonix) tramadol 37.5 mg-acetaminophen 325 1 tab PO QID PRN pa in 10/10/18 12/29/24 History mg tablet naproxen 500 mg tablet,delayed 500 mg PO BID PRN pain 11/10/19 12/29/24 History release nitroglycerin 0.4 mg sublingual 0.4 mg sublingual Q5M angina 11/10/19 12/29/24 History tablet isosorbide mononitrate 30 mg See Rx Instructions .Rout e 08/11/24 12/29/24 Rx tablet,extended release 24 hr .COMPLEX #90 tabs evolocumab 140 mg/mL subcutaneous 140 mg SQ Q2W #5 mL 09/18/24 12/29/24 Rx syringe (Repatha Syringe) semaglutide 1 mg/dose (4 mg/3 mL) 4 mg SQ DIRECTED Diabetes 09/18/24 12/29/24 History subcutaneous pen injector (Ozempic) bisoprolol fumarate 10 mg tablet See Rx Instructions . Route 11/12/24 12/29/24 Rx .COMPLEX #90 tabs ranolazine 500 mg tablet,extended See Rx Instructions .Route 12/03/24 12/29/24 Rx release,12 hr .COMPLEX #60 tabs potassium chloride 10 mEq See Rx Instructions .Route 0 12/12/24 12/29/24 Rx tablet,extended release .COMPLEX #90 tabs New Prescriptions to Start Prescriptions: Allergies Allergy/AdvReac Type Severity Reaction Status Date / Time No Known Allergies Allergy Verified 09/18/24 13:35 Objective Narrative: Physical Exam: General: Alert and oriented x3, no acute distress, pleasant and cooperative Lungs: Respirations even and unlabored, symmetrical chest expansion Eyes: PERRL Musculoskeletal: Flexion and extension of lumbar [spine] somewhat guarded secondary to pain, [antalgic gait noted] positive leg raise Neurological: Speech clear, no gross sensory deficit Additional findings Additional findings: FINDINGS: CT LUMBAR SPINE TECHNIQUE: Thin section noncontrast axial CT with sagittal reconstructions This study was performed with techniques to keep radiation doses as low as reasonably achievable, (ALARA). Individualized dose reduction techniques using automated exposure control or adjustment of mA and/or kV according to the patient''s size were employed. FINDINGS: No fracture is present. Alignment is normal. T12-L1: No significant disc disease is present. There is no canal stenosis. L1-L2: Small central disc osteophyte with moderate facet overgrowth. Mild central canal stenosis and neuroforaminal narrowing. L2-L3: Moderate annular disc bulge with facet overgrowth. Mild central canal stenosis. Moderate bilateral neuroforaminal narrowing. L3-L4: Moderate annular disc bulge with severe facet overgrowth. Severe central canal stenosis and neuroforaminal narrowing. L4-L5: Mild annular disc bulge with severe facet overgrowth, severe central canal stenosis and neuroforaminal narrowing. L5-S1: Mild annular disc bulge with moderate facet overgrowth. Mild central canal stenosis and moderate bilateral neuroforaminal narrowing. IMPRESSION: Significant canal stenosis and neuroforaminal narrowing, particularly severe at L3-4 and L4-5. This study was performed using automated techniques to achieve radiation exposure as low as reasonably achievable Reviewed, Interpreted and Dictated by David Zamorano MD Transcribed by Rosangela Longo Authenticated and . [facility] Assessment and Plan *Assessment and plan (1) Degenerative disc disease: Status: Acute Category: Medical (2) Lumbar radiculopathy: Status: Acute Category: Medical Code(s): M54.16 - Radiculopathy, lumbar region (3) Spinal stenosis: Status: Acute Category: Medical Code(s): M48.00 - Spinal stenosis, site unspecified Plan Patient is experiencing worsening pain in his low back with numbness and tingling into his lower extremities. Patient did have limited range of motion of his lumbar spine with a positive leg raise. I did discuss with patient that I do believe they would benefit from a lumbar epidural steroid injection. Risk and benefits were discussed with patient and the patient would like to proceed forward with this plan of care. Patient is not on blood thinners. Patient has tried and failed conservative therapy including oral medications, heat and ice, topicals and continued at home stretching exercise for longer than 12 weeks between injections. Patient has had chronic back pain for longer than 5 months. Patient has not had any previous lumbar epidurals in the past. I will order the patient a compounded cream. We will schedule the patient for an LESI L4-5 under fluoroscopy. Patient has been instructed to contact the clinic with any concerns before the next appointment. Dr. Guerrero has reviewed this note and agrees with this plan of care. This note was dictated using voice recognition software and make contain errors or omissions. All injections are used with Lidocaine, Bupivacaine and dexamethasone. Occasionally urine drug screen is needed to verify patient's compliance with our office pain contract. This is ordered based off specific treatments related to chronic pain with the potential to abuse certain medications.
--- OUTSIDE RECORDS SUMMARY | 2024-12-29 09:08 | XMS_ITS | Encounter Summary ---
Author Organization [facility] Address [address] [place] [address] Care Team Providers Care Music Video Director Name Role Phone Larisa Echevarria MD Unavailable Encounter Details Date Type Department Care Team (Late st Contact Info) Description 11/12/2024 Orders Only [facility] [address] [place] [address] Larisa Echevarria MD [address] [place] [address] Social History Tobacco Use Types [...] Description 09/24/2025 11:30 AM EDT [facility] [address] [place] [address] Larisa Echevarria MD [address] [place] [address] documented as of this encounter [...] QUEST-CHEMISTRY ORDERABLES Fi nal Result [facility] [address] [place] [address] * URIC ACID-[facility] (11/12/2024 2:34 PM EDT) Uric Acid 6.0 4.0 - 8.0 mg/dL [facility] Comment: Therapeutic target for gout patients: <6.0 mg/dL 11/12/2024 2:34 PM EDT 11/12/2024 2:35 PM EDT us Larisa Echevarria MD QUEST-CHEMISTRY ORDERABLES Fi nal Result QUE[facility] [address] [place] [address] documented in this encounter Visit Diagnoses Not on filedocumented in this encounter Care Teams Music Video Director Relationship Specialty Start Date End Date Larisa Echevarria MD [address] [place] [address] Internal Medicine-Rheumatology 02/19/23 documented as of this encounter
--- OUTSIDE RECORDS SUMMARY | 2024-12-29 09:08 | XMS_ITS | Referral Summary ---
Author Organization [employer] [facility] ([place], [place], [place], [place]) Address [address] [place] [address] Care Team Providers Care Livestock Nutritionist Name Role Phone Unavailable Primary Care Provider [...]
--- OUTSIDE RECORDS SUMMARY | 2024-12-29 09:08 | XMS_ITS | Encounter Summary ---
Author Organization [employer] ([place], [place], [place], [place]) Address [address] [place] [address] Care Team Providers Care Executive Chairman Name Role Phone Unavailable Primary Care Provider Unavailabl e Encounter Details Date Type Department Care Team (Late st Contact Info) Description 11/26/2018 Transcribed Document [facility] [place] [facility] [place] [address] ProviderBrennan MD [address] [place], [place] [phone] Social History Tobacco Use Types Packs/Day Years [...] Document Reviewed: 06/16/2011 ExitCare? Patient Information ?2014 Viewpoint. Pharmacology Moderate Conscious Sedation, Adult, Care After [...] you are awake and alert. ??? Take xivt-zrk-ukmnqhx and prescription medicines only as told by [...] 03/04/2014 Document Revised: 10/16/2016 Document Reviewed: 09/02/2016 [employer] Interactive Patient Education ? 2019 [employer]. Radiology Coronary Angiogram A coronary angiogram is [...] including vitamins, herbs, eye drops, creams, and bgpo-ybh-ykufvfb medicines. ??? Any problems you or family [...] 11/18/2003 Document Revised: 02/23/2017 Document Reviewed: 02/23/2017 [employer] Interactive Patient Education ? 2019 [employer] documented in this encounter Plan of Treatment Not on file documented as of this encounter Visit Diagnoses Not on filedocumented in this encounter
--- OUTSIDE RECORDS SUMMARY | 2024-12-29 09:08 | XMS_ITS | Encounter Summary ---
Author Organization [employer] ([place], [place], [place], [place]) Address [address] [place] [address] Care Team Providers Care Income Tax Consultant Name Role Phone Unavailable Primary Care Provider Unavailabl e Encounter Details Date Type Department Care Team (Late st Contact Info) Description 11/26/2018 Transcribed Document [facility] [place] Medicine [facility] [place] [address] ProviderBrennan MD [address] [place], [place] [phone] Social History Tobacco Use Types Packs/Day Years [...]
--- OUTSIDE RECORDS SUMMARY | 2024-12-29 09:08 | XMS_ITS | Encounter Summary ---
Author Organization [facility] Address [address] [place] [address] Care Team Providers Care Legislative Director Name Role Phone Larisa Echevarria MD Unavailable [phone] Encounter Details Date Type Department Care Team (Latest Contact Info) Description 11/13/2024 Results Follow-Up [facility] [address] [place] [address] Larisa Echevarria MD [address] [place] [address] URIC ACID-QUEST, RENAL FUNCTION PANEL-QUEST [...] Visit [facility] [address] [place] [address] Larisa Echevarria MD [address] [place] [address] documented as of this encounter Visit Diagnoses Not on filedocumented in this encounter Care Teams Legislative Director Relationship Specialty Start Date End Date Larisa Echevarria MD [address] [place] [id number] Internal Medicine-Rheumatology 02/19/23 documented as of this encounter
--- OUTSIDE RECORDS SUMMARY | 2024-12-29 09:08 | XMS_ITS | Encounter Summary ---
Author Organization [employer] ([place], [place], [place], [place]) Address [address] [place] [address] Care Team Providers Care Postal Superintendent Name Role Phone Unavailable Primary Care Provider Unavailabl e Encounter Details Date Type Department Care Team (Late st Contact Info) Description 11/26/2018 Transcribed Document [facility] [place] [address] [place] [address] ProviderrBennan MD [address] [place] [address] Social History Tobacco Use Types Packs/Day Years [...]
--- OUTSIDE RECORDS SUMMARY | 2024-12-29 09:08 | XMS_ITS | Encounter Summary ---
Author Organization [employer] ([place], [place], [place], [place]) Address [address] [place] [address] Care Team Providers Care News Gathering Technician Name Role Phone Unavailable Primary Care Provider Unavailabl e Encounter Details Date Type Department Care Team (Late st Contact Info) Description 11/26/2018 Transcribed Document [facility] [place] [facility] [place] [address] ProviderBrennan MD [address] [place] [address] Social History Tobacco Use Types Packs/Day Years Used Date Smoking Tobacco: Never Assessed Sex and Gender Information Value Date Recorded Sex Assigned at Not on file Legal Sex Male 7:30 PM CDT Gender Identity Not on file Sexual Orientation Not on file documented as of this encounter Miscellaneous Notes * Cerner Conversion Note - Brennan ProviderMD - 11/26/2018 7:23 PM CDT [facility] [place] [address] TY ANTONY SAM :1955 Visit Time:11/26/2018 Your Visit Summary Your Care Team Admitting Physician - SELENE SURESH MD-CAR Attending Physician - SELENE USRESH MD-CAR Primary Care Physician - UMAIR ROBLERO (REF)MD Referring Physician - SELENE SURESH MD-CAR Your Diagnosis Atherosclerotic heart disease of [place] coronary artery with unstable angina pectoris, Atherosclerotic heart disease of [place] coronary artery with unstable angina pectoris Discharge [...] up with Sepideh Shahid PA-C in 2-3 [phone] Follow-Up Appointments Follow Up with SELENE SURESH MD-CAR When Within 1 month Comments Call for follow up appointment Where: [address] [place] [address] [address] [place] [address]- Medications What How Much When Instructions Next [...] you are awake and alert. ??? Take juuw-iya-vwproxu and prescription medicines only as told by [...] 03/04/2014 Document Revised: 10/16/2016 Document Reviewed: 09/02/2016 [employer] Interactive Patient Education ?? 2019 [employer] Inc. Coronary Angiogram A coronary angiogram is [...] including vitamins, herbs, eye drops, creams, and ypxw-kpo-zxuhflm medicines. ??? Any problems you or family [...] 11/18/2003 Document Revised: 02/23/2017 Document Reviewed: 02/23/2017 [employer] Interactive Patient Education ?? 2019 [employer]. Groin Site Care Refer to this [...] Document Reviewed: 06/16/2011 ExitCare?? Patient Information ??2013 [employer]. Emergency Awareness and Preventative Care STROKE is [...] Assistance with quitting is available by contacting 0-707-UUVJNOW. This is a free resource providing counseling, support, and referral. Or you may contact your personal physician. [employer] Suicide Prevention Lifeline: The National Suicide Prevention [...] was given the opportunity to ask questions. Patient/Aerospace Medicine Physician Name: Patient/Aerospace Medicine Physician Signature: Relationship to Patient: Clinician/Hospital Aerospace Medicine Physician Signature: Date: documented in this encounter Plan of Treatment Not on file documented as of this encounter Visit Diagnoses Not on filedocumented in this encounter
--- OUTSIDE RECORDS SUMMARY | 2024-12-29 09:08 | XMS_ITS | Encounter Summary ---
Author Organization [employer] ([place], [place], [place], [place]) Address [address] [place] [address] Care Team Providers Care Stenciler Name Role Phone Unavailable Primary Care Provider Unavailabl e Encounter Details Date Type Department Care Team (Late st Contact Info) Description 11/26/2018 Transcribed Document [facility] [place] Family Medicine On [facility] of [facility] [place] [address] ProviderBrennan MD [address] [place] [phone] Social History Tobacco Use Types Packs/Day Years [...] On: 11/26/2018 19:22 EDT by OVI LAM corporate real estate specialist Documentation Discharge Date/Time : 11/26/2018 19:35 EDT [...]
--- OUTSIDE RECORDS SUMMARY | 2024-12-29 09:08 | XMS_ITS | Encounter Summary ---
Author Organization [employer] ([place], [place], [place], [place]) Address [address] [place] [address] Care Team Providers Care Coating Technician Name Role Phone Unavailable Primary Care Provider Unavailabl e Encounter Details Date Type Department Care Team (Late st Contact Info) Description 11/26/2018 Transcribed Document [facility] [place] [address] ProviderBrennan MD [address] [place] [phone] Social History Tobacco Use Types Packs/Day Years [...] Source : Stated Height Entry Format : [place] Height, Feet : 6 ft(Converted to: 183 cm, 72 Inch) Height, Inches : 0 Inch(Converted to: 0 ft 0 Inch, 0.00 cm) Clinical Height : 182.88 cm Weight Source : Standing scale Weight Entry Format : [place] Clinical Dosing Weight : 113.64 kg Weight, Pounds : 250 lb Body Surface Area (BSA) : 2.34 m2 Body Mass Index : 34 kg/m2 (HI) [place] Body Weight : 77 kg OVI LAM [...] Thoughts of Harming/Killing Yourself : No OVI LAM RN - 11/26/2018 13:27 EDT Advance Directive Patient has Advance Directive *Q : Yes, Advance Directive not with the patient Advance Directive Type : Living will Copy Advance Directive Verified/on Chart : No OVI LAM RN - 11/26/2018 13:27 EDT General Info Support Person/Patient Wholesale Buyer : Yes Support Person/Pt Rep Name : amandeep son Want Family/Rep/Phys Notified of Admit : No Emergency Contact #1 : na Emergency Contact #1 Phone Number : na Emergency Contact #1 Relationship : na Emergency Contact #2 : na Emergency Contact #2 Phone Number : na Emergency Contact #2 Relationship : na Primary Language : British Communication Barrier : None OVI LAM RN [...] Scale Risk Level : 0-24 Low Risk [place] Fall Interventions : Bed in low position, [...]
--- OUTSIDE RECORDS SUMMARY | 2024-12-29 09:08 | XMS_ITS | Clinical Summary ---
Author Organization [facility] Address [address] [place] [address] Phone Care Team Providers Care Billing Auditor Name Role Phone Larisa Echevarria MD Unavailable [phone] Allergies No known active allergies Medications [...] Department Care Team Description 11/13/2024 Results [facility] [address] [place] [address] Larisa Echevarria MD URIC ACID-QUEST, RENAL FUNCTION PANEL-QUEST 11/12/2024 2:30 PM EDT Office Visit [facility] [address] [place] [address] Larisa Echevarria MD 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); Encounter for long-term (current) use of medications; Localized osteoarthritis of left shoulder 11/12/2024 Orders Only [facility] [address] [place] [address] Larisa Echevarria MD from Last 3 Months [...] Office Visit [facility] [address] [place] [address] Larisa Echevarria MD [address] [place] [address] Health Maintenance Due Date Last [...] Echevarria MD QUE[facility]-CHEMISTRY ORDERABLES Fi nal Result [facility] [address] [place] [address] * (ABNORMAL) RENAL FUNCTION PANEL-QUEST (11/12/2024 2:34 PM EDT) Pathologist [facility] Glucose 92 65 - 99 mg/dL [facility] [...] ORDERABLES Fi nal Result Performing Organization Address City/[facility] [address]/ZIP Co de Phone Number [facility] [address] [place] [address] from Last 3 Months Insurance Care Teams Billing Auditor Relationship Specialty Start Date End Date Larisa Echevarria MD [address] [place] [address] Internal Medicine-Rheumatology 02/19/23
[2024-12-29 09:42] VITALS: BP 140/77; PULSE 60; RESP 18; O2SAT 96; BMI 38.0
== END 2024-12-29 23:59 | disposition home or self-care (01) ==
LOC: SC.PAIN 09:00
PROVIDERS: PCP Family Medicine; Visit Provider Nurse Practitioner Family
DX: M51.16 Intervertebral disc disorders with radiculopathy, lumbar region (principal); M48.061 Spinal stenosis, lumbar region without neurogenic claudication; Z79.891 Long term (current) use of opiate analgesic
CPT/HCPCS: 99202; G0463

== ENCOUNTER 2025-02-03 11:18 | Day surgery (SDC) | payer MEDICARE, SELFPAY ==
[2025-02-03 11:25] VITALS: BP 134/76; PULSE 60; RESP 16; O2SAT 95; BMI 36.7
[2025-02-03] MEDS: DEXAMETHASONE 10MG/ML 1ML VIAL 10 MG (11:35)
[2025-02-03 11:36] VITALS: BP 156/66; PULSE 60; RESP 18; O2SAT 95
[2025-02-03 11:39] VITALS: BP 141/76; PULSE 57; RESP 16; O2SAT 95
--- NOTE | 2025-02-03 11:51 | EXP.PAIN.PRO ---
Procedure Date: 02/03/25 Time: 11:30 Anesthesiologist:: Joaquin Hardy CRNA Complications:: None Pre-procedure Diagnosis:: Degnerative disc lumbar spine multilevels. Lumbar radiculopathy. Post-procedure Diagnosis:: Same. Indications for Procedure:: Patient is a very pleasant 69-year-old male who comes our clinic today for lumbar epidural steroid injection. Patient describes low lumbar back pain as well as bilateral hip and leg radicular symptoms as constant, dull, aching. He rates his pain 7/10. Procedure Details:: Procedure: Lumbar epidural steroid injection under fluoroscopy Informed consent was obtained and the risks and benefits of the procedure were explained to the patient. The patient was taken to the procedure room and noninvasive monitors placed, including noninvasive blood pressure cuff and pulse oximeter. The back was viewed using C-arm Fluoroscopy and prepped using Chloraprep as a cleansing solution and the L4-L5 interspace was palpated. Skin and subcutaneous tissues were anesthetized using lidocaine 1.5% and a 25-gauge needle. After this, an 18-gauge Touhy epidural needle was placed into the L4-L5 interspace and advanced using fluoroscopic guidance and loss of resistance to air until the epidural space was encountered. After confirmation of needle placement in the epidural space, with dye, a solution containing normal saline, 3 mL and dexamethasone 10 mg were incrementally injected into the lumbar epidural space. The patient tolerated the procedure well with no complications. The patient was observed in the Pain Clinic and then discharged home neurologically intact. Plan and Disposition:: Patient was discharged without incident.
== END 2025-02-03 11:39 | disposition home or self-care (01) ==
PROVIDERS: PCP Family Medicine; Visit Provider Nurse Anesthetist, Certified Registered
DX: M51.16 Intervertebral disc disorders with radiculopathy, lumbar region (principal); I25.119 Atherosclerotic heart disease of native coronary artery with unspecified angina pectoris; K21.9 Gastro-esophageal reflux disease without esophagitis; I10 Essential (primary) hypertension; Z95.5 Presence of coronary angioplasty implant and graft; Z95.0 Presence of cardiac pacemaker; Z87.891 Personal history of nicotine dependence; Z79.82 Long term (current) use of aspirin; Z79.899 Other long term (current) drug therapy
CPT/HCPCS: 62323; J1100

== ENCOUNTER 2025-03-10 10:37 | Outpatient (CLI) | payer MEDICARE, SELFPAY ==
--- OUTSIDE RECORDS SUMMARY | 2024-09-09 10:15 | XMS_ITS ---
Author Organization [facility] Address [address] [facility] [address] [id number] Care Team Providers Care Diving Judge Name Role Phone Jaelyn Pacheco Primary Care Provider [phone] Allergies No Known Allergies REASON FOR VISIT [...] y 36 [facility] [address] [place], [place] [id number] 09/09/2024 Jaelyn Pacheco Bilateral hip pain M25.551 [...] 2 Weeks,prn, Reas on: Provider Name:Jaelyn Billingsley, 08/13/2025 10:00:00 AM, [address] [facility], [address], [place], [place], [phone], Progress Notes * TY ANTONY LDOB:[birth year] (69 yo M)Acc No.[id number]:09/09/2024 Progress Notes Patient: TY GLORIA Provider: Jaelyn Pacheco M.D. :1955 A ge:68 Y S ex:Male Date:09/09/2024 Address:[address] [place], [place] [phone] Subjective: * Chief Complaints: * 1 . [...] pain - M25.551 (Primary) 2 . B GA 38.0-38.9,adult - Z68.38 ---Suspect spinal stenosis. Plan: * Treatment: * Procedure Codes: G 2211 Complex e/m visit add on, 3074F SYST BP LT 130 MM HG, 3078F DIAST BP < 80 MM HG * Follow Up: 2 Weeks,prn * Images: Billing Information: * Visit Code: 55032 Office Visit, Est Pt., Level 3. * Procedure Codes: G2211 Complex e/m visit add on. 3074F SYST BP LT 130 MM HG. 3078F DIAST BP < 80 MM HG. * Electronic signature of Jaelyn Pacheco MD on 03/10/2025 at 10:41 AM EDT Sign off status: Pending * Provider: Jaelyn Pacheco M.D. Date: 0 09/09/2024 Generated for Roman kraus/Nico/Jaymeitting on: 1 10:41 AM EDT History and Physical Notes * HPI [...]
--- OUTSIDE RECORDS SUMMARY | 2024-09-23 09:30 | XMS_ITS ---
Author Organization [facility] Address [address] [facility] [address] [id number] Care Team Providers Care Oxygen Tank Filler Name Role Phone Jaelyn Pacheco Primary Care Provider [phone] Allergies No Known Allergies REASON FOR VISIT upset stomach, possibly from shot Medications Medication SIG (Take, Route, Frequency, Duration) Notes Start Date End Date Status Aspirin Adult Low Dose 81 MG 1 tab(s) orally QD Active traMADol-Acetaminophen 37.5-325 MG 1 tab(s) orally qid prn 06/09/2024 Acti ve Furosemide 40 MG TAKE 1 TABLET EVERY DAY; Duration: 90 Active Lisinopril 5 MG 1 tab(s) orally twic e a day; Duration: [address] 500 MG TAKE 1 TABLET TWICE DAILY; Duration: 90 Active Potassium Chloride ER 10 MEQ 1 tab(s) orally once a day Active Aquaphor Adv Therapy Feet - as directed Externally Two times a day 02/12/2024 Active Pantoprazole Sodium 40 MG TAKE 1 TABLET EVERY DAY; Duration: 90 Active Levothyroxine Sodium 50 MCG TAKE 1 TABLET EVERY DAY; Duration: 90 Active Triamcinolone Acetonide 0.1 % 1 application Externally Two times a day 02/14/2024 Active Isosorbide Mononitrate ER 30 MG 1 tablet in the morning Orally Once a day; Duration: 30 day(s) Active Allopurinol 300 MG 1 tablet Orally Once a day; Duration: 30 day(s) Active Ranolazine ER 500 MG 1 tablet Orally Twi ce a day; Duration: 30 day(s) Active Ondansetron HCl 4 MG 1 tablet Orally thr ee times a day as needed 09/22/2024 Active Ozempic (1 MG/DOSE) 4 MG/3ML inject 1 mg Subcutaneous once a week 05/29/2024 Not-Taking Leqvio 284 MG/1.5ML as directed Subcutaneous Active Lisinopril 5 MG 1 tab(s) orally twic e a day Active Farxiga 10 MG 1 tablet Orally Once a day Active predniSONE 10 MG 1 tab tid x 5 days t hen 1 tab bid x 5 days then 1 tab qd x 5 days Orally 09/09/2024 Active Nitroglycerin 0.4 MG 1 tab(s) sublingual ly every 5 minutes x 3 Active Bisoprolol Fumarate 10 MG 1 tab(s) orall y once a day Active Zetia 10 MG TAKE 1 TABLET EVERY DAY Active Levothyroxine Sodium 50 MCG 1 tab(s) orally once a day Active Vital Signs Blood pressure systolic 120 mm Hg 09/24/19 25 Blood pressure diastolic 64 mm Hg 025 Heart Rate 60 /min 09/23/2024 Height 70.50 in 09/23/2024 Weight 260.6 lbs 09/23/2024 BMI 36.86 kg/m2 09/23/2024 Encounters Encounter Location Date Provider Diagnosis [facility] [address] [facility] [address] [place] [id number] 09/23/2024 Jaelyn Monaco Tara Type 2 diabetes mellitus without complication, unspecified whether retirement insulin use E11.9 Assessments Encounter Date Diagnosis (ICD Code) Assessment Notes Treatment Notes Treatment Clinical Notes Section Notes 09/23/2024 Type 2 diabetes mellitus without complication, unspecified whether adult neurologist insulin use (ICD-10 - E11.9) He will remain off work this week. Plan Of Treatment Medication Medication Name Sig Start Date Stop Date Notes Ozempic (1 MG/DOSE) 4 MG/3ML 1 mg Subcutaneous once a week 09/05/2024 Ondansetron HCl 4 MG 1 tablet Orally thr ee times a day as needed 09/22/2024 Treatment Notes Assessment Notes Type 2 diabetes mellitus wit hout complication, unspecified whether adult neurologist insulin use He will remain off work this week. Next Appt Details Follow Up: prn, Reason: Provider Name:Jaelyn Billingsley, 08/13/2025 10:00:00 AM, [address] [facility], [address], [place], [id number], Progress Notes * TY ANTONY LDOB:[birth year] (69 yo M)Acc No.[id number]:09/23/2024 Progress Notes Patient: TY GLORIA Provider: Jaelyn Pacheco M.D. :1955 A ge:68 Y S ex:Male Date:09/23/2024 Address:[address] [place], [place] [phone] Subjective: * Chief Complaints: * 1 . Upset stomach, possibly from shot. * HPI: G astroenterology: Aiden took his second injection of the 1mg dose of Ozempic last Sunday and within a few hours began having vomiting and diarrhea that persisted for 3 days. No hematemesis or melena. His vomiting has now resolved and his last diarrhea stool was yesterday. He still feels nauseated. He has been able to tolerate liquids. * ROS: O PTHALMOLOGY: Negative for d [...] 03/2020. * Hospitalization/Major Diagno stic Procedure: H for heart rate low 02-03, [facility]-chest pain 12/23/12. * Family History: F ather: [...] tablet Orally Once a day , Taking predniSONE 10 MG Tablet 1 tab tid x 5 days then 1 tab bid x 5 days then 1 tab qd x 5 days Orally , Taking Ondansetron HCl 4 MG Tablet 1 tablet Orally three times a day as needed , Not-Taking Ozempic (1 MG/DOSE) 4 MG/3ML Solution Pen- injector 1 mg Subcutaneous once a week , Not-Taking Ozempic (1 MG/DOSE) 4 MG/3ML Solution Pen-injector inject 1 mg Subcutaneous once a week , Medication List reviewed and reconciled with the patient * Allergies: N .K.D.A. Objective: * Vitals: W t: 260.6, Temp: 98.2, BP: 120/64, HR: 60, Nurse: trey, Ht: 70.50, BMI:36.86. Assessment: * Assessment: 1. T ype 2 diabetes mellitus without complication, unspecified whether adult neurologist insulin use - E11.9 (Primary) Plan: * Treatment: * Procedure Codes: G 2211 Complex e/m visit add on, G8752 MOST RECENT SYSTOLIC BP < 140MM HG, G8754 MOST RECENT DIASTOLIC BP < 90MM HG, 3044F HG A1C LEVEL LT 7.0% * Follow Up: p rn * Images: Billing Information: * Visit Code: 85382 Office Visit, Est Pt., Level 3. * Procedure Codes: G2211 Complex e/m visit add on. G8752 MOST RECENT SYSTOLIC BP < 140MM HG. G8754 MOST RECENT DIASTOLIC BP < 90MM HG. 3044F HG A1C LEVEL LT 7.0%. * Electronic signature of Jaelyn Pacheco MD on 03/10/2025 at 10:41 AM EDT Sign off status: Pending * Provider: Jaelyn Pacheco M.D. Date: 0 09/23/2024 Generated for Roman kraus/Nico/Jaymeitting on: 10:41 AM EDT
--- OUTSIDE RECORDS SUMMARY | 2024-12-02 12:45 | XMS_ITS ---
Author Organization [facility] Address [address] [facility] [address] [id number] Care Team Providers Care Street Roller Engineer Name Role Phone Jaelyn Pacheco Primary Care [...] Notes Problem Spinal stenosis of lumbosacral region ([id number]) Spinal stenosis of lumbosacral region (M48.07) Active confirmed Vital Signs Blood pressure systolic 120 mm Hg 12/03/19 25 Blood pressure diastolic 72 mm Hg 025 Heart Rate 60 /min 12/02/2024 Height 70.50 in 12/02/2024 Weight 277.6 lbs 12/02/2024 BMI 39.26 kg/m2 12/02/2024 Encounters Encounter Location Date Provider Diagnosis [facility] [address] [facility] [address] [place] [id number] 12/02/2024 Jaelyn Pacheco Primary generalized (osteo)arthritis M15.0 [...] repo rt test results, Reason: Provider Name:Jaelyn Monaco Markuscricket andriy, 08/13/2025 10:00:00 AM, [address], [address], [place], [place], [id number], Progress Notes * TY ANTONY LDOB:[birth year] (69 yo M)Acc No.[id number]:12/02/2024 Progress Notes Patient: TY GLORIA Provider: Jaelyn Pacheco M.D. :1955 A ge:69 Y S ex:Male Date:12/02/2024 Address:[address] [place], [place] [phone] Subjective: * Chief Complaints: * 1 . [...] stic Procedure: H for heart rate low 9-, [facility]-chest pain 12/23/12. * Family History: F [...] * Images: Billing Information: * Visit Code: 58086 Office Visit, Est Pt., Level 4. * [...] * Provider: Jaelyn Pacheco M.D. Date: 0 12/02/2024 Generated for Printi nayana/Nico/eTransmitting on: 1 10:41 AM EDT History and [...]
--- OUTSIDE RECORDS SUMMARY | 2025-02-12 06:00 | XMS_ITS ---
Author Organization [facility] Address [address] [id number] Care Team Providers Care Almond Blancher Hand Name Role Phone Jaelyn Pacheco Primary Care Provider [phone] Allergies No Known Allergies Results Component Value Reference Range Notes Glycohemoglobin A1c (in hous e) Reviewed date:02/16/2025 06:43:35 PM Interpretation:6.0% Performing Lab: Notes/Report: 6.0% glycohemoglobin 6.0% 5 - 6.5 % P-Comprehensive Metabolic Pa fito (CMP) Reviewed date:02/16/2025 06:43:35 PM Interpretation:GFR 55 Performing Lab: Notes/Report: CLIA: [id number] Brad Sun MD, [employer] [facility] , [address], [place] [address] Test performed by [employer], [facility] Sodium 139 135-145 mmol/L Potassium 4.7 3.5-5.3 mmol/L Chloride 100 97-108 mmol/L CO2 27 20-32 mmol/L Glucose 121 65-99 mg/dL BUN 21 8-23 mg/dL Creatinine 1.37 0.70-1.30 mg/dL Calcium 10.0 8.6-10.4 mg/dL eGFR by Creatinine 55 >59 mL/min/1.73m2 Protein 7.3 6.0-8.3 g/dL Albumin 4.4 3.5-5.3 g/dL Alkaline Phosphatase 71 40-129 IU/L ALT (SGPT) 33 <5-55 IU/L AST (SGOT) 25 <5-46 IU/L Bilirubin, Total 0.6 <0.2-1.2 mg/dL A/G Ratio 1.5 1.1-2.5 P-Lipid Panel Reviewed date:02/16/2025 06:43:35 PM Interpretation:TC 238; LDL 139; TG 268 Performing Lab: Notes/Report: Brad Sun MD, [employer] [place]: [id number] [address] [place] [address] , [address], [place] [address] Test performed by [employer], [facility] Cholesterol 238 <200 mg/dL Triglycerides 268 <150 mg/dL HDL Cholesterol 45 >39 mg/dL Cholesterol / HDL Ratio 5.29 0.00-4.99 Ratio Non-HDL Cholesterol 193 <130 mg/dL LDL Cholesterol (Calculation) 139 <130 mg/dL LDL Cholesterol Levels* Less than 100 mg/dL Optimal 100 to 129 mg/dL Near Optimal/ Above Optimal 130 to 159 mg/dL Borderline High 160 to 189 mg/dL High 190 mg/dL and above Very High * Categories as recommended by the 2004 ATPIII guidelines LDL/HDL Ratio 3.1 <3.3 Ratio LDL Cholesterol Patient History Test Date: 08/14/2023 LDL Results: 138 Units: mg/dL % Change: - Test Date: 02/12/2025 LDL Results: 139 Units: mg/dL % Change: +0% REASON FOR VISIT 6 month check, Needs labs & flu vaccine Medications Medication SIG (Take, Route, Frequency, Duration) Notes Start Date End Date Status Naproxen DR 500 MG TAKE 1 TABLET TWICE DAILY; Duration: 90 Active Lisinopril 5 MG 1 tablet Orally twic e a day; Duration: 90 days Active traMADol HCl 50 MG 1 tab Orally 4 times a day prn 12/05/2024 Active Furosemide 40 MG 1 tablet Orally Once a day; Duration: 90 days Active Levothyroxine Sodium 50 MCG 1 tablet in the morning on an empty stomach Orally Once a day; Duration: 90 days Active Pantoprazole Sodium 40 MG TAKE 1 TABLET EVERY DAY; Duration: 90 Active Triamcinolone Acetonide 0.1 % 1 application Externally Two times a day 02/14/2024 Active Potassium Chloride ER 10 MEQ 1 tab(s) orally once a day Active Isosorbide Mononitrate ER 30 MG 1 tablet in the morning Orally Once a day; Duration: 30 day(s) Active Ranolazine ER 500 MG 1 tablet Orally Twi ce a day; Duration: 30 day(s) Active Zetia 10 MG TAKE 1 TABLET EVERY DAY Active Leqvio 284 MG/1.5ML as directed Subcutaneous Active Lisinopril 5 MG 1 tab(s) orally twic e a day Active Allopurinol 300 MG 1 tablet Orally Once a day; Duration: 30 day(s) Active Farxiga 10 MG 1 tablet Orally Once a day Active Nitroglycerin 0.4 MG 1 tab(s) sublingual ly every 5 minutes x 3 Active Levothyroxine Sodium 50 MCG 1 tab(s) orally once a day Active Ozempic (1 MG/DOSE) 4 MG/3ML inject 1 mg Subcutaneous once a week 05/29/2024 Not-Taking Bisoprolol Fumarate 10 MG 1 tab(s) orall y once a day Active Aspirin Adult Low Dose 81 MG 1 tab(s) orally QD Active predniSONE 10 MG 1 tab tid x 5 days t hen 1 tab bid x 5 days then 1 tab qd x 5 days Orally 09/09/2024 Not-Taking Ondansetron HCl 4 MG 1 tablet Orally thr ee times a day as needed 09/22/2024 Not-Taking Immunizations Vaccine Route Administration Date Status Comme nts Fluzone High Dose (65yr and older) IM Intramuscular 02/12/2025 Administered Vital Signs Blood pressure systolic 120 mm Hg 02/13/20 25 Blood pressure diastolic 72 mm Hg 025 Heart Rate 75 /min 02/12/2025 Height 70.50 in 02/12/2025 Weight 281.2 lbs 02/12/2025 BMI 39.77 kg/m2 02/12/2025 Encounters Encounter Location Date Provider Diagnosis [place] [address] [facility] [address] [place], [place] [id number] 02/12/2025 Jaelyn Pacheco HTN (hypertension) I 10 ; Acquired hypothyroidism E03.9 ; Dyslipidemia E78.5 ; ASCVD (arteriosclerotic cardiovascular disease) I25.10 ; Statin intolerance Z78.9 ; Chronic kidney disease (CKD) N18.9 ; Sick sinus syndrome I49.5 ; GERD (gastroesophageal reflux disease) K21.9 ; Type 2 diabetes mellitus without complication, unspecified whether residential insulin use E11.9 ; Hip pain, right M25.551 ; BMI 39.0-39.9,adult Z68.39 ; Male erectile disorder N52.9 ; History of nicotine dependence Z87.891 ; GEORGINA (obstructive sleep apnea) G47.33 ; Presence of cardiac pacemaker Z95.0 and Encounter for immunization Z23 Assessments Encounter Date Diagnosis (ICD Code) Assessment Notes Treatment Notes Treatment Clinical Notes Section Notes 02/12/2025 HTN (hypertension) (ICD-10 - I10) 02/12/2025 Acquired hypothyroidism (ICD-10 - E03.9) 02/12/2025 Dyslipidemia (ICD-10 - E78.5) 02/12/2025 ASCVD (arteriosclerotic cardiovascular disease) (ICD-10 - I25.10) 02/12/2025 Statin intolerance (ICD-10 - Z78.9) 02/12/2025 Chronic kidney disease (CKD) (ICD-10 - N18.9) 02/12/2025 Sick sinus syndrome (ICD-10 - I49.5) 02/12/2025 GERD (gastroesophageal reflux disease) (ICD-10 - K21.9) 02/12/2025 Type 2 diabetes mellitus without complication, unspecified whether bench examiner insulin use (ICD-10 - E11.9) 02/12/2025 Hip pain, right (ICD-10 - M25.551) 02/12/2025 BMI 39.0-39.9,adult (ICD-10 - Z68.39) 02/12/2025 Male erectile disorder (ICD-10 - N52.9) 02/12/2025 History of nicotine dependence (ICD-10 - Z87.891) 02/12/2025 GEORGINA (obstructive sleep apnea) (ICD-10 - G47.33) 02/12/2025 Presence of cardiac pacemaker (ICD-10 - Z95.0) 02/12/2025 Encounter for immunization (ICD-10 - Z23) Plan Of Treatment Medication Medication Name Sig Start Date Stop Date Notes Zetia 10 MG TAKE 1 TABLET EVERY DAY Leqvio 284 MG/1.5ML as directed Subcutaneous Lisinopril 5 MG 1 tab(s) orally twice a day Farxiga 10 MG 1 tablet Orally Once a day Nitroglycerin 0.4 MG 1 tab(s) sublingual ly every 5 minutes x 3 Levothyroxine Sodium 50 MCG 1 tab(s) orally once a day Bisoprolol Fumarate 10 MG 1 tab(s) orally once a day Aspirin Adult Low Dose 81 MG 1 tab(s) orally QD Next Appt Details Follow Up: 6 Months, Reason: Provider Name:Jaelyn Billingsley, 08/13/2025 10:00:00 AM, [address] [facility] [address] [facility], [address] [place] [address], [id number], Progress Notes * TY ANTONY LDOB:[birth year] (69 yo M)Acc No.[id number]:02/12/2025 Progress Notes Patient: Andree RCABTREETY TUTTLE Provider: Jaelyn Pacheco M.D. :1955 A ge:69 Y S ex:Male Date:02/12/2025 Address:[address] [place], [place] [id number] Subjective: * Chief Complaints: * 1 . 6 month check. 2. Needs labs & flu vaccine. * HPI: H PI: 69 year old male presents with c/o Patient is here today for?Pt is here today for a 6 month check up. Pt sts he is doing well and has no concerns at this time. Pt is fasting. Pt sts he would like his flu shot today as well. L farhat back: His back pain is improved since his last visit. He read on the Internet that Leqvio could be a cause of back pain sublease discontinued his injections which did improve his symptoms. He also follow through with his pain management consultation and has had 1 epidural injection which has also resulted in further pain relief. * Medical History: C oronary Artery Disease, [...] stic Procedure: H for heart rate low 9-09, [facility]-chest pain 12/23/12. * Family History: F [...] TAKE 1 TABLET TWICE DAILY , Taking Aspirin Adult Low Dose 81 MG Tablet Delayed Release 1 tab(s) orally QD , Taking Bisoprolol Fumarate 10 MG Tablet 1 tab(s) orally once a day , Taking Furosemide 40 MG Tablet 1 tablet Orally Once a day , Taking Lisinopril 5 MG Tablet 1 tablet Orally twice a day , Taking traMADol HCl 50 MG Tablet 1 tab Orally 4 times a day prn , Taking Levothyroxine Sodium 50 MCG Tablet [...] N .K.D.A. Objective: * Vitals: W t: 281.2, Temp: 97.7, BP: 120/72, HR: 75, Nurse: trey, Ht: 70.50, BMI:39.77. * Examination: C ardiology: General Appearance: p leasant, NAD. . C arotid upstroke: n ormal, no bruits. H eart sounds: R RR, normal S1, S2. M urmur, click , gallop: n one. L ungs: c lear, no rales or wheezes. A bdomen: p ositive BS, soft, nontender. E xtremities: n o leg edema. Assessment: * Assessment: 1. A cquired hypothyroidism - E03.9 (Primary) 2 . H TN (hypertension) - I10? 3. D yslipidemia - E78.5 4 . A SCVD (arteriosclerotic cardiovascular disease) - I25.10 5 . S tatin intolerance - Z78.9 6 . Chronic kidney disease (CKD) - N18.9 7 . S ick sinus syndrome - I49.5 8 . G ERD (gastroesophageal reflux disease) - K21.9 9 . T ype 2 diabetes mellitus without complication, unspecified whether residential insulin use - E11.9 1 0. H ip pain, right - M25.551 1 1. B AR 39.0-39.9,adult - Z68.39? 12. M per erectile disorder - N52.9 1 3. H istory of nicotine dependence - Z87.891 1 4. O SA (obstructive sleep apnea) - G47.33 15. P resence of cardiac pacemaker - Z95.0 1 6. E ncounter for immunization - Z23 Plan: * Treatment: 2. H TN (hypertension) Continue Bisoprolol Fumarate Tablet, 10 MG, 1 tab(s), orally, once a day; C ontinue Lisinopril Tablet, 5 MG, 1 tab(s), orally, twice a day. L AB: P-Comprehensive Metabolic Panel (CMP) (Collection Date & Time - 02/12/2025 09:12 AM) G FR 55 Value Reference Range A /G Ratio 1.5 1.1-2.5 - * A lbumin 4.4 3.5-5.3 - g/dL * A lkaline Phosphatase 71 40-129 - IU/L * A LT (SGPT) 33 <5-55 - IU/L * A ST (SGOT) 25 <5-46 - IU/L * B ilirubin, Total 0.6 <0.2-1.2 - mg/dL * B UN 21 8-23 - mg/dL * C alcium 10.0 8.6-10.4 - mg/dL * C hloride 100 97-108 - mmol/L * C O2 27 20-32 - mmol/L * C reatinine 1.37 H 0.70-1.30 - mg/dL * G lucose 121 H 65-99 - mg/dL * P otassium 4.7 3.5-5.3 - mmol/L * S odium 139 135-145 - mmol/L * P rotein 7.3 6.0-8.3 - g/dL * e GFR by Creatinine 55 L >59 - mL/min/1.73m2 * Jaelyn Pacheco 02/16/2025 06:43:25 PM EDT > See phone encounter 3.?Dyslipidemia? Continue Zetia Tablet, 10 MG, TAKE 1 TABLET EVERY DAY;?Continue Leqvio Solution Prefilled Syringe, 284 MG/1.5ML, as directed, Subcutaneous.?LAB: P-Lipid Panel (Collection Date & Time - 02/12/2025 09:12 AM)?TC 238; LDL 139; TG 268* Value Reference Range C holesterol / HDL Ratio 5.29 H 0.00-4.99 - Ratio * C holesterol 238 H <200 - mg/dL * H DL Cholesterol 45 >39 - mg/dL * L DL Cholesterol (Calculation) 139 H <130 - mg/d L * L DL/HDL Ratio 3.1 <3.3 - Ratio * N on-HDL Cholesterol 193 H <130 - mg/dL * T riglycerides 268 H <150 - mg/dL * Jaelyn Pacheco 02/16/2025 06:43:25 PM EDT > See phone encounter 4.?ASCVD (arteriosclerotic cardiovascular disease)? Continue Aspirin Adult Low Dose Tablet Delayed Release, 81 MG, 1 tab(s), orally, QD;?Continue Nitroglycerin Tablet Sublingual, 0.4 MG, 1 tab(s), sublingually, every 5 minutes x 3.??5.?Chronic kidney disease (CKD)? Continue Farxiga Tablet, 10 MG, 1 tablet, Orally, Once a day.??6.?Type 2 diabetes mellitus without complication, unspecified whether residential insulin use?LAB: Glycohemoglobin A1c (in house) (Collection Date & Time - 02/12/2025)? 6.0%* Value Reference Range g lycohemoglobin 6.0% 5 - 6.5 % * Tamie Ac 02/12/2025 11:1 2:18 AM EDT > Jaelyn Pacheco 02/16/2025 06:43:25 PM EDT > See phone encounter * Immunizations: Fluzone High Dose (65yr and older) : 0.5 mL (Route: Intramuscular) given by TREY Bolden on Right Arm (Encounter for immunization) * Procedure Codes: G 2211 Complex e/[place], [address] GLYCATED HEMOGLOBIN TEST, Modifiers: QW , 3044F HG A1C LEVEL LT 7.0%, 1036F TOBACCO NON-USER, G8950 PREHTN/HTN BP DOC INDCD F/U DOC, G8752 MOST RECENT SYSTOLIC BP < 140MM HG, G8754 MOST RECENT DIASTOLIC BP < 90MM HG, 3074F SYST BP LT 130 MM HG, 3078F DIAST BP < 80 MM HG * Follow Up: 6 Months * Images: Billing Information: * Visit Code: 61456 Office Visit, Est Pt., Level 4. * Procedure Codes: G2211 Complex e/[place]. [address] GLYCATED HEMOGLOBIN TEST. Modifiers: QW 3044F HG A1C LEVEL LT 7.0%. 1036F TOBACCO NON-USER. G8950 PREHTN/HTN BP DOC INDCD F/U DOC. G8752 MOST RECENT SYSTOLIC BP < 140MM HG. G8754 MOST RECENT DIASTOLIC BP < 90MM HG. 3074F SYST BP LT 130 MM HG. 3078F DIAST BP < 80 MM HG. * Electronic signature of Jaelyn Pacheco MD on 03/10/2025 at 10:39 AM EDT Sign off status: Pending * Provider: Jaelyn Pacheco M.D. Date: 0 02/12/2025 Generated for Roman kraus/Nico/Jaymeitting on: 1 10:39 AM EDT History and Physical Notes * HPI (History of Present Illness) Category Sub-Category Detail Notes Category Not es Lower back His back pain i s improved since his last visit. He read on the Internet that Leqvio could be a cause of back pain sublease discontinued his injections which did improve his symptoms. He also follow through with his pain management consultation and has had 1 epidural injection which has also resulted in further pain relief. HPI Patient is here toda y for Pt is here today for a 6 month check up. Pt sts he is doing well and has no concerns at this time. Pt is fasting. Pt sts he would like his flu shot today as well Examination Category Sub-Category Detail Notes Category Not es Cardiology Lungs: clear, no rales or wheezes HEENT: Heart sounds: RRR, normal S1, S2 Abdomen: positive BS, soft, n ontender Carotid upstroke: normal, no bruits Extremities: no leg edema Murmur, click , gallop: none General Appearance: pleasant, NAD.
--- OUTSIDE RECORDS SUMMARY | 2025-03-10 10:40 | XMS_ITS | Clinical Summary ---
Author Organization [employer] [facility] ([place], [place], [place], [place]) Address [address] [place] [address] Care Team Providers Care Platen Press Operator Name Role Phone Unavailable Primary Care [...]
--- OUTSIDE RECORDS SUMMARY | 2025-03-10 10:40 | XMS_ITS | Clinical Summary ---
Author Organization [facility] Address [address] [id number] Care Team Providers Care Financial Foundations Associate Name Role Phone Estuardo Pacheco MD Primary Care Provider [phone] Social History Tobacco Use Types Packs/Day Years Used Date Smoking Tobacco: Never Assessed Sex and Gender Information Value Date Recorded Sex Assigned at Not on file Legal Sex Male 7:50 PM EDT Gender Identity Not on file Sexual Orientation Not on file Plan of Treatment Health Maintenance Due Date Last Done Comments [facility]-Depression Screening 1955 [facility]-Hepatitis C Screening 1955 [facility]-Medicare Annual Wellness (AWV) 1955 [facility]-Infant/Child/Adol SDOH Screenings 1955 [facility]- SDOH Screenings 10/10/1971 [facility]-Adult SDOH Screenings 10/10/1971 CT Colonography 1998 Colonoscopy 1998 FIT-DNA 1998 FIT 1998 FOBT 1998 Sigmoidoscopy 1998 [facility]-Colorectal Cancer Screening 1998 [facility]-Zoster Vaccines (1 of 2) 10/10/2003 [id number] Vaccine ( season) 2025 03/17/2022, 03/30/2021, 08/19/2020, Additional history exists [facility]-Influenza [...] this topic Insurance [employer] MEDICARE Care Teams Financial Foundations Associate Relationship Specialty Start Date End Date Estuardo Pacheco MD [address] [place] [id number] PCP - General 10/08/20
--- OUTSIDE RECORDS SUMMARY | 2025-03-10 10:40 | XMS_ITS | Encounter Summary ---
Author Organization [employer] ([place], [place], [place], [place]) Address [address] [place] [address] Care Team Providers Care Turbine Operator Name Role Phone Unavailable Primary Care Provider Unavailabl e Encounter Details Date Type Department Care Team (Late st Contact Info) Description 11/26/2018 Transcribed Document [facility] Family Medicine [address] [place] [address] ProviderBrennan MD [address], [place] [id number] Social History Tobacco Use Types Packs/Day Years [...]
--- OUTSIDE RECORDS SUMMARY | 2025-03-10 10:41 | XMS_ITS | Clinical Summary ---
Author Organization [facility] Address [address] [place] [address] Phone Care Team Providers Care Portainer Operator Name Role Phone Larisa Echevarria MD Unavailable [phone] Allergies No known active allergies Medications [...] 07/2016 uric acid 7.8 mg/dL. Normal creatinine. Surgical History Surgery Date Site/Laterality Comments CARDIAC [...] on file Sexual Orientation Not on file Last Filed Vital Signs Vital Sign Reading [...] Office Visit [facility] [address] [place] [address] Larisa Echevarria MD [address] [place] [address] Health Maintenance Due Date Last Done Comments Wellness Exam Medicare 1958 Hepatitis C Screening 10/10/1971 Colonoscopy 1998 FIT 1998 Sigmoidoscopy 1998 Virtual Colonography 1998 Zoster (1 of 2) 10/10/2003 RSV or 60+ (1 - Risk 60-74 years 1-dose series) 2013 AAA Screening 2018 COVID-19 Vaccine ( season) 2025 03/17/2022, 03/30/2021, 08/19/2020, Additional history exists Influenza Vaccine (#1) 2025 2, 02/04/2021, 01/27/2020, Additional history exists Cologuard 08/19/2026 [...] to complete this topic Insurance HUMANA MEDICARE PPO MR Care Teams Portainer Operator Relationship Specialty Start Date End Date Larisa Echevarria MD [address] [place] [address] Internal Medicine-Rheumatology 02/19/23
--- OUTSIDE RECORDS SUMMARY | 2025-03-10 10:41 | XMS_ITS | Referral Summary ---
Author Organization [facility] ([place], [place], [place], [place]) Address [address] [place] [address] Care Team Providers Care Ship'S Master Name Role Phone Unavailable Primary Care Provider [...]
--- OUTSIDE RECORDS SUMMARY | 2025-03-10 10:41 | XMS_ITS | Encounter Summary ---
Author Organization [facility] Address [address] [place] [address] Care Team Providers Care Director Of Product Design Name Role Phone Larisa Echevarria MD Unavailable [phone] Encounter Details Date Type Department Care Team (Latest Contact Info) Description 11/13/2024 Results Follow-Up [facility] [address] [place] [address] Larisa Echevarria MD [address] [place] [address] URIC ACID-QUEST, RENAL FUNCTION PANEL-QUEST [...] Visit [facility] [address] [place] [address] Larisa Echevarria MD [address] [place] [address] documented as of this encounter Visit Diagnoses Not on filedocumented in this encounter Care Teams Director Of Product Design Relationship Specialty Start Date End Date Larisa Echevarria MD [address] [place] [id number] Internal Medicine-Rheumatology 02/19/23 documented as of this encounter
--- OUTSIDE RECORDS SUMMARY | 2025-03-10 10:41 | XMS_ITS | Encounter Summary ---
Author Organization [employer] ([place], [place], [place], [place]) Address [address] [place] [address] Care Team Providers Care Media Relations Intern Name Role Phone Unavailable Primary Care Provider Unavailabl e Encounter Details Date Type Department Care Team (Late st Contact Info) Description 11/26/2018 Transcribed Document [facility] Family Medicine [address] [place] [address] ProviderBrennan MD [address] [id number] Social History Tobacco Use Types Packs/Day Years [...] Source : Stated Height Entry Format : [place] Height, Feet : 6 ft(Converted to: 183 cm, 72 Inch) Height, Inches : 0 Inch(Converted to: 0 ft 0 Inch, 0.00 cm) Clinical Height : 182.88 cm Weight Source : Standing scale Weight Entry Format : [place] Clinical Dosing Weight : 113.64 kg Weight, Pounds : 250 lb Body Surface Area (BSA) : 2.34 m2 Body Mass Index : 34 kg/m2 (HI) [place] Body Weight : 77 kg OVI LAM [...] 11/26/2018 13:27 EDT General Info Support Person/Patient Drapery Operator : Yes Support Person/Pt Rep Name : amandeep son Want Family/Rep/Phys Notified of Admit : No Emergency Contact #1 : na Emergency Contact #1 Phone Number : na Emergency Contact #1 Relationship : na Emergency Contact #2 : na Emergency Contact #2 Phone Number : na Emergency Contact #2 Relationship : na Primary Language : Mosotho Communication Barrier : None OVI LAM RN [...] Scale Risk Level : 0-24 Low Risk [place] Fall Interventions : Bed in low position, [...]
--- OUTSIDE RECORDS SUMMARY | 2025-03-10 10:41 | XMS_ITS | Encounter Summary ---
Author Organization [employer] ([place], [place], [place], [place]) Address [address] [place] [address] Care Team Providers Care Buyer Assistant Name Role Phone Unavailable Primary Care Provider Unavailabl e Encounter Details Date Type Department Care Team (Late st Contact Info) Description 11/26/2018 Transcribed Document [facility] [place] [facility] [place] [address] ProviderBrennan MD [address] [place], [place] [phone] Social History Tobacco Use Types Packs/Day Years [...] Document Reviewed: 06/16/2011 ExitCare? Patient Information ?2014 [employer]. Pharmacology Moderate Conscious Sedation, Adult, Care After [...] you are awake and alert. ??? Take eiks-mtc-etnztgb and prescription medicines only as told by [...] 03/04/2014 Document Revised: 10/16/2016 Document Reviewed: 09/02/2016 [employer] Patient Education ? 2019 [employer]. Radiology Coronary Angiogram A coronary angiogram is [...] including vitamins, herbs, eye drops, creams, and [id number]-osfrmlp medicines. ??? Any problems you or family [...] 11/18/2003 Document Revised: 02/23/2017 Document Reviewed: 02/23/2017 [employer] Interactive Patient Education ? 2019 [employer] documented in this encounter Plan of Treatment Not on file documented as of this encounter Visit Diagnoses Not on filedocumented in this encounter
--- OUTSIDE RECORDS SUMMARY | 2025-03-10 10:41 | XMS_ITS | Encounter Summary ---
Author Organization [employer] ([place], [place], [place], [place]) Address [address] [place] [address] Care Team Providers Care Railroad Signal Technician Name Role Phone Unavailable Primary Care Provider Unavailabl e Encounter Details Date Type Department Care Team (Late st Contact Info) Description 11/26/2018 Transcribed Document [facility] [place] Family Medicine [facility] [place] [address] ProviderBrennan MD [address] [place] [id number] Social History Tobacco Use Types Packs/Day Years Used Date Smoking Tobacco: Never Assessed Sex and Gender Information Value Date Recorded Sex Assigned at Not on file Legal Sex Male 7:30 PM CDT Gender Identity Not on file Sexual Orientation Not on file documented as of this encounter Miscellaneous Notes * Cerner Conversion Note - Brennan Stafford MD - 11/26/2018 7:23 PM CDT [place] [address] TY ANTONY SAM :1955 Visit Time:11/26/2018 Your Visit Summary Your Care Team Admitting Physician - SELENE SURESH MD-CAR Attending Physician - SELENE SURESH MD-CAR Primary Care Physician - UMAIR ROBLERO (REF)MD Referring Physician - SELENE SURESH MD-CAR Your Diagnosis Atherosclerotic heart disease of [place] coronary artery with unstable angina pectoris, Atherosclerotic heart disease of [place] coronary artery with unstable angina pectoris Discharge [...] up with Sepideh Shahid PA-C in [phone] Follow-Up Appointments Follow Up with SELENE SURESH MD-CAR When Within 1 month Comments Call for follow up appointment Where: [address] [place] [address] [address] [place] [address]- Medications What How Much When Instructions Next [...] you are awake and alert. ??? Take iajn-yag-hcmqjqq and prescription medicines only as told by [...] 03/04/2014 Document Revised: 10/16/2016 Document Reviewed: 09/02/2016 [employer] Interactive Patient Education ?? 2019 [employer] Coronary Angiogram A coronary angiogram is [...] including vitamins, herbs, eye drops, creams, and [id number]-qfbabpm medicines. ??? Any problems you or family [...] 11/18/2003 Document Revised: 02/23/2017 Document Reviewed: 02/23/2017 [employer] Interactive Patient Education ?? 2019 [employer] Groin Site Care Refer to this [...] Document Reviewed: 06/16/2011 ExitCare?? Patient Information ??2013 [employer]. Emergency Awareness and Preventative Care STROKE is [...] Assistance with quitting is available by contacting 9-679-OMHMNOW. This is a free resource providing counseling, support, and referral. Or you may contact your personal physician. [employer] Suicide Prevention Lifeline: The National Suicide Prevention [...] was given the opportunity to ask questions. Patient/Tallow Maker Name: Patient/Tallow Maker Signature: Relationship to Patient: Clinician/Hospital Tallow Maker Signature: Date: documented in this encounter Plan of Treatment Not on file documented as of this encounter Visit Diagnoses Not on filedocumented in this encounter
--- OUTSIDE RECORDS SUMMARY | 2025-03-10 10:41 | XMS_ITS | Encounter Summary ---
Author Organization [employer] ([place], [place], [place], [place]) Address [address] [place] [address] Care Team Providers Care Hospital Social Worker Name Role Phone Unavailable Primary Care Provider Unavailabl e Encounter Details Date Type Department Care Team (Late st Contact Info) Description 11/26/2018 Transcribed Document [facility] [place] Family Medicine [facility] [place] [address] ProviderBrennan MD [address], [place] [phone] Social History Tobacco Use Types Packs/Day Years [...]
--- OUTSIDE RECORDS SUMMARY | 2025-03-10 10:41 | XMS_ITS | Encounter Summary ---
Author Organization [employer] ([place], [place], [place], [place]) Address [address] [place] [address] Care Team Providers Care Assistant Art Director Name Role Phone Unavailable Primary Care Provider Unavailabl e Encounter Details Date Type Department Care Team (Late st Contact Info) Description 11/26/2018 Transcribed Document [facility] [place] [address] [place] [address] ProviderBrennan MD [address] [place] [address] Social History Tobacco Use Types Packs/Day Years [...]
--- OUTSIDE RECORDS SUMMARY | 2025-03-10 10:41 | XMS_ITS | Encounter Summary ---
Author Organization [employer] ([place], [place], [place], [place]) Address [address] [place] [address] Care Team Providers Care Commercial Lines Account Executive Name Role Phone Unavailable Primary Care Provider Unavailabl e Encounter Details Date Type Department Care Team (Late st Contact Info) Description 11/26/2018 Transcribed Document [facility] [place] Medicine [facility] [place] [address] ProviderBrennan MD [address] [place] [phone] Social History Tobacco Use Types Packs/Day Years [...] On: 11/26/2018 19:22 EDT by OVI LAM baffle mounter Documentation Discharge Date/Time : 11/26/2018 19:35 EDT [...]
[2025-03-10 11:25] LABS: Hematocrit 43.1 % (42.0-52.0); Hemoglobin 14.5 g/dL (14.1-18.0); Immature Granulocytes % 0.5 %; Mean Corpuscular HGB Conc 33.6 g/dL (31.8-35.4); Mean Corpuscular Hemoglobin 33.6 pg (27.0-31.2); Mean Corpuscular Volume 100.0 fl (80-94); Nucleated Red Blood Cells % 0 %; Platelet Count 201 K/mm3 (142-424); Red Blood Count 4.31 M/mm3 (4.60-6.20); Red Cell Distribution Width-SD 46.5 fL; White Blood Count 8.1 K/mm3 (4.8-10.8)
[2025-03-10 11:52] LABS: Albumin Level 4.1 g/dl (3.5-5.0); Chloride 98 mmol/L (98-107); Sodium 137 mmol/L (136-145)
[2025-03-10 11:53] LABS: Potassium 4.4 mmoL/L (3.5-5.1)
[2025-03-10 11:55] LABS: Alanine Aminotransferase 38 U/L (12-78); Alkaline Phosphatase 73 U/L (38-126); Anion Gap 14.4 mEq/L (5-15); Aspartate Amino Transferase 33 U/L (17-59); Bilirubin,Direct 0.1 mg/dl (0.0-0.4); Bilirubin,Indirect 0.7 mg/dL (0.0-0.9); Bilirubin,Total 0.8 mg/dl (0.2-1.3); Bilirubin,Unconjugated 0.7 mg/dL (0.0-1.1); Blood Urea Nitrogen 25 mg/dl (9-20); Calcium 9.2 mg/dl (8.4-10.2); Carbon Dioxide 29 mmol/L (22.0-30.0); Cholesterol 231 mg/dl (140-200); Creatinine,Serum 1.30 mg/dl (0.66-1.25); Estimated Glomerular Filt Rate 54 ml/min (>60); GFR (African American) 66 ML/MIN (>60); Glucose 121 mg/dl (74-100); Total Protein,Serum 7.0 g/dl (6.3-8.2); Triglycerides 224 mg/dl (30-150)
[2025-03-10 11:56] LABS: HDL Cholesterol 42 mg/dl (40-60); Magnesium 2.0 mg/dl (1.6-2.3)
[2025-03-10 12:13] LABS: Free T4 (Free Thyroxine) 1.14 ng/dl (0.78-2.19)
[2025-03-10 12:24] LABS: Thyroid Stimulating Hormone 3.39 uIU/mL (0.465-4.68)
== END 2025-03-10 23:59 | disposition home or self-care (01) ==
LOC: LAB 10:38
PROVIDERS: PCP Family Medicine; Visit Provider Internal Medicine
DX: I25.10 Atherosclerotic heart disease of native coronary artery without angina pectoris (principal); I10 Essential (primary) hypertension; E78.5 Hyperlipidemia, unspecified
CPT/HCPCS: 36415; 80048; 80061; 80076; 83735; 84439; 84443; 85025